=== PATIENT | male | born 1950 | race Caucasian/White ===

== ENCOUNTER 2017-05-26 15:08 | Emergency (ER) | payer MEDICARE, OTHER, SELFPAY ==
--- NOTE | 2017-05-26 15:29 | XR_ITS ---
XR elbow LT min 3V HISTORY: Pain following injury ITS.REASON: Injury ORDERING PHYSICIAN: Diana Vasquez PATIENT AGE: 67 years COMPARISON: None FINDINGS: No fracture or dislocation. No displaced fat pad. There is soft tissue swelling along the dorsal aspect of the proximal ulna. No radio opaque foreign body. IMPRESSION: Soft tissue swelling along the dorsal and proximal aspect of the ulna otherwise negative left elbow
[2017-05-26 15:30] VITALS: BP 150/83; PULSE 103; RESP 20; TEMP 37.6; O2SAT 98; BMI 24.4
--- NOTE | 2017-05-26 15:45 | PC.NURSE ---
Ambulatory to XRAY with information technology assistant
--- NOTE | 2017-05-26 15:51 | PC.NURSE ---
Pt ambulatory back to room from XRAY with weatherization technician.
--- NOTE | 2017-05-26 15:54 | HMH.EDUTC ---
[facility] [place] Clinical Impression: Olecranon bursitis of left elbow Disposition: Home, Self-Care Condition on Discharge: Good Instructions: DI for Elbow Bursitis Additional Instructions: Read attached education Ibuprofen as needed if you are allowed to take it. 600-800mg every 6-8 hours as needed for pain Luis wrap to left elbow. not too tight but not too loose. Monitor for any sign of infection as discussed. Follow up immediately if occurs. Fill and start keflex IF we report test results indicate need for it. If you have not heard from me by 8pm, call [phone] for results. Follow up with Dr. Lynch. See Follow up instructions Prescriptions: cephALEXin [Keflex 500mg Cap] 500 mg PO QID #40 cap Referrals: Jony Lynch MD [Staff Physician] - (Call office tomorrow. Report seen in [facility] and [facility]IOLOG[facility]ALLURGIST discussed you with Dr. Lynch. He wanted you to call for follow up appt, likely next week. Return to [facility]/ER in the meantime for ANY new or worsening symptoms) Time of Disposition: 17:38 Medical Decision Making - Earl Inquiry Pt receiving controlled substance: No Vital Signs: 05/26/17 15:30 Temperature 99.6 F Temperature Source Temporal Artery Scan Pulse Rate [Brachial] 103 H Respiratory Rate 20 Blood Pressure [Right Arm] 150/83 Blood Pressure Mean [Right Arm] 105 02 Sat by Pulse Oximetry 98 Orders (Tests/Meds): ORDERS Category Date Time Status Body Fluid: Cell Count w/ Diff Stat Lab 05/26/17 17:25 Ordered Body Fluid Culture, Sterile Stat Micro 05/26/17 17:25 Ordered Gram Stain Stat Micro 05/26/17 17:25 Ordered - Physician Consults Physician Consulted: leila Knox Time: 16:17 Reason -: Pt condition Comment/Response: Spoke to Mandie. Currently with a patient. Will have him call me once available. Dr. Cruz Returned call. If suspect infection, suggest sending fluid for gram stain, C&S, cell count. Apply luis wrap. keflex if results suspicous for infection. pt to call him tomorrow for follow up and he will see him next week. [facility] [place] - General Stated complaint: [id number] L elbow Time Seen by Provider: 05/26/17 15:36 Mode of Arrival: Ambulatory Source of Information: Patient Limitations: No Limitations Description of Symptoms (Recalled from Triage Doc. by RN): INJURIED HIS LEFT ELBOW A FEW YEARS AGO. YESTERDAY HIT IT ON THE TABLE AND NOW IT IS VERY PAINFUL. SWELLING IS NOTED. HEENT Symptoms (Recalled from RN notes): No Resp Symptoms (Recalled from RN notes): No Skin Symptoms (Recalled from RN notes): No MS Symptoms (Recalled from RN notes): Yes Functional Status (Recalled from RN notes): NA - History of Present Illness Provider Complaint: c/o left elbow pain and swelling since hitting it on a coffee table yesterday. Hx of injury to left elbow 2-4 years ago. No problems since. However since hitting it yesterday, increasingly sore, swollen and now red and hot. Low grade fever. No aches or chills. PMHx of chronic pain and nerve problems . Pain worse with ROM or if touched. - Related Data Home Medications Medication Instructions Recorded Confirmed Gabapentin [Gabapentin 800mg Tab] 800 mg PO Q6 05/26/17 05/26/17 Hydrocodone/Acetaminophen 7.5 mg PO Q6 05/26/17 05/26/17 [Hydrocodone-Acetamin 7.5-325] Previous Rx's Medication Instructions Recorded cephALEXin [Keflex 500mg Cap] 500 mg PO QID #40 cap 05/26/17 Allergies Allergy/AdvReac Type Severity Reaction Status Date / Time No Known Allergies Allergy Verified 05/26/17 15:33 - Worker's Comp Is this a Worker's Comp case?: No [facility] History I have reviewed the patient's past medical history: Yes Medical History: Denies:: Diabetes Mellitus Type 1, Diabetes Mellitus Type 2, Hypertension Other Surgeries: Yes: Other (back, neck, hand and knee surgeries) - Social History Smoking Status: Current every day smoker Alcohol Intake: never - Psychiatric History Expresses thoughts of harming self/others: N
[2017-05-26 17:59] VITALS: BP 150/83; PULSE 103; RESP 20; TEMP 37.6; O2SAT 98
[2017-08-05 15:43] LABS: Lymphocytes,Fluid 12%; Polys,Fluid 26%
[2017-08-05 15:44] LABS: Eosinophils,Fluid 0%
== END 2017-05-26 18:00 | disposition home or self-care (01) ==
PROVIDERS: Emergency Provider Nurse Practitioner Family; PCP Family Medicine
DX: M70.22 Olecranon bursitis, left elbow (principal)
CPT/HCPCS: G0463; 73080; 87070; 87077; 87186; 87205; 89051; 99201

== ENCOUNTER → 2017-11-22 14:46 | Outpatient (POV) | payer MEDICARE, OTHER, SELFPAY ==
[2017-11-22 15:03] VITALS: BP 186/98; PULSE 95; RESP 20; O2SAT 97; BMI 25.0
[2017-11-22 15:05] VITALS: BP 186/98; PULSE 95; RESP 20; O2SAT 97
[2017-11-22 18:23] LABS: Amphetamine/Metha Screen,Urine Negative ng/mL (<1000); Barbiturates Screen,Urine Negative ng/mL (<200); Benzodiazepines Screen,Urine Negative ng/mL (<200); Cannabinoid Screen,Urine Negative ng/mL (<50); Cocaine Screen,Urine Negative ng/mL (<300); Methadone Screen,Urine Negative ng/mL (<300); Opiate Screen,Urine Negative ng/mL (<300); Phencyclidine Screen,Urine Negative ng/mL (<25)
--- NOTE | 2017-11-23 09:01 | HMH.PMCON ---
Assessment and Plan (1) Postlaminectomy syndrome Current visit: Yes Status: Chronic Category: Medical Code(s): M96.1 - Postlaminectomy syndrome, not elsewhere classified (2) Degenerative disc disease Current visit: Yes Status: Chronic Qualifiers: Spinal region: unspecified cervical region Qualified Code(s): M50.30 - Other cervical disc degeneration, unspecified cervical region Category: Medical - Assessment and plan all Dx Assessment and Plan for all problems:: We will send the patient for urine drug screen today if it is appropriate we can take over his gabapentin. Patient and I had a long discussion about compliance. Patient also interested in cervical epidural however I need to review his MRI reports prior to this patient will sign a release so we can request these reports. This note was dictated using voice recognition software and may contain errors or omissions HPI - Data of Consult Consult date: 11/22/17 Requesting Physician: Farida Devlin APRN Primary Care Provider: Kelly Mills - Consult Narrative Reason for consult: Back pain History of present illness: Mr. Cardenas is a 67 year old male who presents today for consultation in regards to his pain. Patient had been seen in the past and was receiving narcotic medication however he failed a urine drug screen at that time. Patient states that he does not need that at this time he is interested in injections in remaining on his gabapentin. Patient's currently on gabapentin 800 mg 1 p.o. 4 times daily. Patient rates his pain an 8 out of 10 today. Patient states that he has had epidural injections in the past however he does not remember if they were beneficial. Patient states that he has pain in his neck radiating into his arms and also his back radiating into his feet. Patient is having surgery in the past. Patient and I have discussed in neurostimulator however he is uninterested in this at this time. Patient does have an MRI however it is at [facility] we will have to procure this. CC: Farida Devlin APRN [facility] History I have reviewed the patient's past medical history: Yes Medical History: Reports:: Hypertension Denies:: Cancer, Diabetes Mellitus Type 1, Diabetes Mellitus Type 2, MRSA Other Medical History: Reports: Fibromyalgia Other Surgeries: Yes: Other Amputation: No Fractures: No - *Social History Smoking Status: Current some day smoker Tobacco Type: cigarettes # Packs/Day (cigarettes): 1 Alcohol Intake: never Occupational Status: other - Psychiatric History Expresses thoughts of harming self/others: None Suicide Plan Description: No Plan *Family Hx:: No significant family history Review of Systems - Review of Systems ROS General: no recent weight change, no fever, no sleep disturbances Respiratory: no cough, no shortness of air, no recurring pulmonary infections Cardiovascular/Peripheral Vascular: No chest pain, No palpitations, no edema, no shortness of breath. Gastrointestinal: no incontinence, normal bowel movements reported Genitourinary: no incontinence Musculoskeletal: Back pain, leg pain, neck pain, arm pain Psychiatric: normal mood/ affect Neurological: [denies weakness in extremities], [denies balance issues] Meds Home Medications Medication Instructions Recorded Confirmed Type Gabapentin [Gabapentin 800mg Tab] 800 mg PO Q6 05/26/17 05/26/17 History Hydrocodone/Acetaminophen 7.5 mg PO Q6 05/26/17 05/26/17 History [Hydrocodone-Acetamin 7.5-325] clonazepam 0.5 mg disintegrating 0.5 mg PO QHS 06/02/17 History tablet Allergies Allergy/AdvReac Type Severity Reaction Status Date / Time No Known Allergies Allergy Verified 06/16/17 13:01 Objective Vital signs: Pulse Resp BP Pulse Ox 95 H 20 186/98 97 11/22/17 15:05 11/22/17 15:05 11/22/17 15:05 11/22/17 15:05 Narrative: Physical Exam General: Alert and oriented x3, no acute d
--- NOTE | 2017-11-23 09:05 | P.CONS_ITS ---
Assessment and Plan (1) Postlaminectomy syndrome Current visit: Yes Status: Chronic Category: Medical Code(s): M96.1 - Postlaminectomy syndrome, not elsewhere classified (2) Degenerative disc disease Current visit: Yes Status: Chronic Qualifiers: Spinal region: unspecified cervical region Qualified Code(s): M50.30 - Other cervical disc degeneration, unspecified cervical region Category: Medical - Assessment and plan all Dx Assessment and Plan for all problems:: We will send the patient for urine drug screen today if it is appropriate we can take over his gabapentin. Patient and I had a long discussion about compliance. Patient also interested in cervical epidural however I need to review his MRI reports prior to this patient will sign a release so we can request these reports. This note was dictated using voice recognition software and may contain errors or omissions HPI - Data of Consult Consult date: 11/22/17 Requesting Physician: Farida Devlin APRN Primary Care Provider: Kelly Mills - Consult Narrative Reason for consult: Back pain History of present illness: Mr. Cardenas is a 67 year old male who presents today for consultation in regards to his pain. Patient had been seen in the past and was receiving narcotic medication however he failed a urine drug screen at that time. Patient states that he does not need that at this time he is interested in injections in remaining on his gabapentin. Patient's currently on gabapentin 800 mg 1 p.o. 4 times daily. Patient rates his pain an 8 out of 10 today. Patient states that he has had epidural injections in the past however he does not remember if they were beneficial. Patient states that he has pain in his neck radiating into his arms and also his back radiating into his feet. Patient is having surgery in the past. Patient and I have discussed in neurostimulator however he is un interested in this at this time. Patient does have an MRI however it is at [facility] we will have to procure this. CC: Farida Devlin APRN [facility] History I have reviewed the patient's past medical history: Yes Medical History: Reports:: Hypertension Denies:: Cancer, Diabetes Mellitus Type 1, Diabetes Mellitus Type 2, MRSA Other Medical History: Reports: Fibromyalgia Other Surgeries: Yes: Other Amputation: No Fractures: No - *Social History Smoking Status: Current some day smoker Tobacco Type: cigarettes # Packs/Day (cigarettes): 1 Alcohol Intake: never Occupational Status: other - Psychiatric History Expresses thoughts of harming self/others: None Suicide Plan Description: No Plan *Family Hx:: No significant family history Review of Systems - Review of Systems ROS General: no recent weight change, no fever, no sleep disturbances Respiratory: no cough, no shortness of air, no recurring pulmonary infections Cardiovascular/Peripheral Vascular: No chest pain, No palpitations, no edema, no shortness of breath. Gastrointestinal: no incontinence, normal bowel movements reported Genitourinary: no incontinence Musculoskeletal: Back pain, leg pain, neck pain, arm pain Psychiatric: normal mood/ affect Neurological: [denies weakness in extremities], [denies balance issues] Meds Home Medications Medication Instructions Recorded Confirmed Type Gabapentin [Gabapentin 800mg Tab] 800 mg PO Q6 05/26/17 05/26/17 History Hydrocodone/Acetaminophen 7.5 mg PO Q6 05/26/17 05/26/17 History
[2017-11-26 19:10] LABS: Gabapentin,Urine >800.0 ug/mL (.)
[2017-12-01 16:45] LABS: Opiates Negative (Cutoff=100)
== END ==
PROVIDERS: PCP Nurse Practitioner Family; Visit Provider Clinical Nurse Specialist Family Health
DX: M96.1 Postlaminectomy syndrome, not elsewhere classified (principal); M50.30 Other cervical disc degeneration, unspecified cervical region; Z79.899 Other long term (current) drug therapy
CPT/HCPCS: 80305; 80307; 80361; 80365; 99202; G0480

== ENCOUNTER → 2017-12-08 08:41 | Outpatient (CLI) | payer MEDICARE, OTHER, SELFPAY ==
--- NOTE | 2017-12-08 | CA_ITS ---
PROCEDURE: 2-D M-mode and color Doppler study INDICATIONS FOR THE TEST: Chest pain+ COPD Heart Murmur Tobacco Smoking+ Palpitations Fatigue Syncope Edema Hypertension+Diabetes Mellitus Rheumatic Fever SOB EATON Obesity Hyperlipidemia+ Family History HD Additional History TDE PATIENT INFORMATION HEIGHT: 72 WEIGHT:185 GENDER: Male B/P: 2-D/M-MODE INTERPRETATION: 2-D MEASUREMENTS OBSERVED VALUES IN CMS Right Ventricular Dimension (RVDd) 2.0 Interventricular Septum (Thickness)(IVsd) 1.3 Left Ventricular Internal Dimensions(LVIDd) 3.6 Left Ventricular Posterior Wall (Thickness)(LVPWd) 1.1 Aortic Root 2.8 Aortic Cusp Separation 2.0 Left Atrial Dimensions (LAD) 3.9 2D 1. Left atrium is mildly enlarged, left ventricle is normal size, mild concentric left ventricular hypertrophy, visually estimated ejection fraction of 55% with no regional wall motion abnormality. 2. The right atrium and right ventricle are normal size and contractility. 3. The aortic valve is minimally thickened and fibrosed. 4. The mitral and tricuspid valve is normal. 5. The pulmonic valve is poorly visualized. 6. No significant pericardial effusion noted. DOPPLER INTERROGATION: Doppler interrogation of the aortic, mitral and tricuspid valvular presence of mild mitral and tricuspid regurgitation, tricuspid regurgitation jet velocity is insufficient for calculation of the right ventricular systolic pressure, grade 1 diastolic dysfunction seen without tissue Doppler evidence of raised left atrial pressure. CONCLUSION: 1. Mildly left atrium, normal left ventricular size, mild concentric left ventricular hypertrophy, visually estimated ejection fraction 55% with no regional wall motion abnormality, grade 1 diastolic dysfunction seen without tissue Doppler evidence of raised left atrial pressure. 2. Mild mitral and tricuspid regurgitation 3. No significant pericardial effusion noted.
== END ==
PROVIDERS: PCP Nurse Practitioner Family; Visit Provider Nurse Practitioner Family
DX: I34.1 Nonrheumatic mitral (valve) prolapse (principal)
CPT/HCPCS: 93306

== ENCOUNTER → 2018-08-05 14:15 | Outpatient (CLI) | payer MEDICARE, OTHER, SELFPAY ==
--- NOTE | 2018-08-05 14:19 | MR_ITS ---
MR cervical spine wo con, MR 3-d myelogram/MRCP HISTORY: Neck pain Xyears. Bilateral arm pain, numbness, and tingling. ITS.REASON: CERVICAL DISC DISORDER WITH RADICULOPATHY ORDERING PHYSICIAN: Kelly Mills PATIENT AGE: 68 years Comparison: None TECHNIQUE: Standard multiplanar multiecho sequences are performed without contrast. 3-D MIP and myelographic images are also rendered and reviewed FINDINGS: There is moderate degree of motion artifact which does somewhat obscure fine detail. The craniocervical junction has an unremarkable appearance. C2-C3: Mild right-sided foraminal narrowing from facet hypertrophy C3-C4: Small central disc protrusion slightly eccentric to the left causing narrowing of the canal with minimal contour deformity along the anterior aspect of the cord. C4-C5: Degenerative disc disease with retrolisthesis of C4 on C5 of 4 mm and bulging disc with canal narrowing of the left millimeters with minimal indentation upon the cord anteriorly. There is uncovertebral and facet hypertrophy with bilateral lateral recess and foraminal narrowing. C5-C6: Prior anterior cervical disc fusion with artifact. C6-C7: Prior anterior cervical disc fusion with bone plate anteriorly at C5-6 and 7. C7-T1: Minimal bulging disc. IMPRESSION: 1. Limited study secondary to motion artifact and metallic artifact from prior anterior cervical disc fusion at C5-C6 and C6-C7. 2. C3-C4: Small central disc protrusion slightly eccentric to the left causing narrowing of the canal with minimal contour deformity along the anterior aspect of the cord. 3. C4-C5: Degenerative disc disease with retrolisthesis of C4 on C5 of 4 mm and bulging disc with canal narrowing of the left millimeters with minimal indentation upon the cord anteriorly. There is uncovertebral and facet hypertrophy with bilateral lateral recess and foraminal narrowing
--- NOTE | 2018-08-05 14:19 | MR_ITS ---
MR lumbar spine wo con HISTORY: PT states low back pain X years. Prior back surgery years ago. Bilateral leg and feet pain, numbness and tingling. Bilateral feet burning. ITS.REASON: THORACOLUMBAR AND LUMBOSACRAL INTERVERTEBRAL DISC DISORDER ORDERING PHYSICIAN: Kelly Mills PATIENT AGE: 68 years Comparison: None TECHNIQUE: Standard multiplanar multiecho sequences are performed without contrast. 3-D MIP and myelographic images are also rendered and reviewed FINDINGS: Spinal cord ends at the T12-L1 level. T12-L1 and L1-L2 have an unremarkable appearance. L2-L3: Minimal bulging disc along with mild facet and ligamentum flavum hypertrophy L3-L4: Mild bulging disc along with moderate facet and ligamentum flavum hypertrophy with moderate bilateral lateral recess and mild bilateral foraminal narrowing. L4-L5: Bulging disc along with a small broad-based central disc protrusion along with moderate to severe bilateral facet and ligamentum flavum hypertrophy with resultant severe bilateral lateral recess and foraminal narrowing. There is transverse narrowing of the canal at this level of 9 mm. L5-S1: Prior posterior fusion with laminectomy and posterior interpedicular screws. No disc herniations evident. IMPRESSION: 1. Bulging disc at L4-5 with small broad-based central disc protrusion with moderate to severe facet ligamentum flavum hypertrophy with severe bilateral lateral recess and severe bilateral foraminal narrowing along with transverse narrowing of the canal 2. Postsurgical changes L5-S1. 3. Mild bulging disc with facet and ligamentum hypertrophy at L3-L4 with bilateral lateral recess and foraminal narrowing IMPRESSION:
== END ==
PROVIDERS: PCP Nurse Practitioner Family; Visit Provider Nurse Practitioner Family
DX: M50.10 Cervical disc disorder with radiculopathy, unspecified cervical region (principal); M51.16 Intervertebral disc disorders with radiculopathy, lumbar region
CPT/HCPCS: 72141; 72148; 76376

== ENCOUNTER → 2019-06-26 17:46 | Outpatient (CLI) | payer MEDICARE, OTHER, SELFPAY ==
[2019-06-26 18:47] LABS: Basophils # 0.2 K/mm3 (0-0.2); Basophils % 1.7 % (0.1-2.0); Eosinophils # 0.2 K/mm3 (0.0-0.4); Eosinophils % 1.6 % (0.1-12.0); Hematocrit 52.7 % (42.0-52.0); Hemoglobin 16.7 g/dL (14.1-18.0); Lymphocytes # 3.6 K/mm3 (0.7-4.5); Lymphocytes % 26.5 % (10-50); Mean Corpuscular HGB Conc 31.8 g/dL (31.8-35.4); Mean Corpuscular Hemoglobin 30.1 pg (27.0-31.2); Mean Corpuscular Volume 94.8 fl (80-94); Mean Platelet Volume 10.6 fl (7.4-10.4); Monocytes # 0.9 K/mm3 (0.1-1.0); Monocytes % 6.4 % (1.7-9.3); Neutrophils # 8.6 K/mm3 (1.8-7.8); Neutrophils % 63.6 % (37.0-80.0); Platelet Count 312 K/mm3 (142-424); Red Blood Count 5.56 M/mm3 (4.60-6.20); White Blood Count 13.5 K/mm3 (4.8-10.8)
[2019-06-26 19:41] LABS: Chloride 100 mmol/L (98-107); Potassium 4.7 mmoL/L (3.5-5.1); Sodium 138 mmol/L (136-145)
[2019-06-26 19:43] LABS: Blood Urea Nitrogen 11 mg/dl (9-20); Estimated Glomerular Filt Rate 96 ml/min (>60); GFR (African American) 116 ML/MIN (>60)
[2019-06-26 19:44] LABS: Albumin Level 4.2 g/dl (3.5-5.0); Albumin/Globulin Ratio 1.1 (1.1-1.8); Alkaline Phosphatase 165 U/L (38-126); Anion Gap 17.7 mEq/L (5-15); Bilirubin,Total 0.4 mg/dl (0.2-1.3); Calcium 9.6 mg/dl (8.4-10.2); Carbon Dioxide 25 mmol/L (22.0-30.0); Chol/HDL Ratio 4.5 (1-3.5); Cholesterol 189 mg/dl (140-200); Globulin 3.7 g/dL (1.3-3.2); Glucose 111 mg/dl (74-100); HDL Cholesterol 42 mg/dl (40-60); Total Protein,Serum 7.9 g/dl (6.3-8.2); Triglycerides 135 mg/dl (30-150); VLDL Cholesterol 27 mg/dL (0-40)
[2019-06-26 19:46] LABS: Alanine Aminotransferase 25 U/L (12-78); Aspartate Amino Transferase 36 U/L (17-59)
[2019-06-26 20:01] LABS: T4 (Thyroxine) 9.4 ug/dl (5.53-11.0)
[2019-06-28 10:50] LABS: Vitamin B12 728 pg/mL (232-1245); Vitamin D 25 Hydroxy 24.7 ng/mL (30.0-100.0)
== END ==
PROVIDERS: Visit Provider Physician Assistant
DX: G62.9 Polyneuropathy, unspecified (principal); R53.83 Other fatigue; E78.5 Hyperlipidemia, unspecified
CPT/HCPCS: 80053; 80061; 82607; 82652; 84436; 84443; 85025

== ENCOUNTER → 2019-07-03 12:41 | Outpatient (CLI) | payer MEDICARE, OTHER, SELFPAY ==
[2019-07-03 13:35] VITALS: PULSE 100; PULSE 102
== END ==
PROVIDERS: PCP Physician Assistant; Visit Provider Physician Assistant
DX: R06.00 Dyspnea, unspecified (principal)
CPT/HCPCS: 94060; 94618; 94640; 94726; 94729

== ENCOUNTER → 2019-07-10 13:01 | Outpatient (POV) | payer MEDICARE, OTHER, SELFPAY ==
[2019-07-10 13:26] VITALS: BP 180/85; PULSE 106; RESP 20; TEMP 36.6; O2SAT 95; BMI 26.5
--- NOTE | 2019-07-10 14:09 | HMH.PMCON ---
Assessment and Plan (1) Cervical stenosis of spinal canal Current visit: No Status: Chronic Category: Medical Code(s): M48.02 - Spinal stenosis, cervical region (2) Degenerative disc disease Current visit: No Status: Chronic Qualifiers: Spinal region: unspecified cervical region Qualified Code(s): M50.30 - Other cervical disc degeneration, unspecified cervical region Category: Medical (3) Lumbar canal stenosis Current visit: No Status: Chronic Qualifiers: Neurogenic claudication status: without neurogenic claudication Qualified Code(s): M48.061 - Spinal stenosis, lumbar region without neurogenic claudication Category: Medical Code(s): M48.061 - Spinal stenosis, lumbar region without neurogenic claudication (4) Postlaminectomy syndrome Current visit: No Status: Chronic Category: Medical Code(s): M96.1 - Postlaminectomy syndrome, not elsewhere classified - Assessment and plan all Dx Assessment and Plan for all problems:: We will set up the patient for an L4-L5 lumbar epidural steroid injection. Given his symptomology I do believe this would be beneficial. He is not a candidate for controlled substances due to the abuse in regards to buying substances off the street and mixing prescribed substances. Patient may be a candidate for a neurostimulator in the future however he is uninterested in discussing that. Dr. Meadows has reviewed this note and agrees with this plan of care. This note was dictated using voice recognition software and may contain errors or omissions HPI - Data of Consult Consult date: 07/10/19 Requesting Physician: Farida Devlin APRN Primary Care Provider: BRENNEN Cool - Consult Narrative Reason for consult: Low back pain and leg pain History of present illness: Mr. Cardenas is a 69 year old male who presents today to discuss his low back and leg pain. Patient had surgery back sometime ago . Patient states that he believes it was Dr. Fortune who did his surgeries. Since then he has had low back pain. He states that he has a lot of numbness in his feet. Patient has a lot of burning. Patient was on gabapentin however he took his friend's Lyrica and told his primary care that this was more beneficial. He was then prescribed Lyrica which he now takes with the gabapentin. Patient states that he has bought Suboxone off the street and that this is been very beneficial in regards to his pain. Patient does have a history of alcohol abuse along with family history of alcohol abuse. Patient is not a candidate for any kind of narcotic therapies at this time. Patient is interested in injective therapy we discussed an epidural he would like to move forward with this. We also discussed potentially neurostimulator which would give him much benefit for his feet however he states he is uninterested in this because his nephew had it and it did not do nothing for him . Patient rates his pain a 7 out of 10. Patient denies any physical therapy. CC: Farida Devlin APRN [facility] History I have reviewed the patient's past medical history: Yes Medical History: Reports:: Hyperlipidemia, Hypertension Denies:: Cancer, Diabetes Mellitus Type 1, Diabetes Mellitus Type 2, MRSA *Have you ever received a pneumonia vaccine?: Yes *Have you received a flu vaccine this season?: Yes Other Medical History: Reports: Arthritis, Fibromyalgia Other Surgeries: Yes: Other Amputation: No Fractures: No - *Social History Smoking Status: Current every day smoker Tobacco Type: cigarettes # Packs/Day (cigarettes): 1 Alcohol Intake: never Substance Use Type: denies use *Occupational Status:: other Housing: house Household Members: other *Travel in the last 8 weeks: None Family Hx:: Unable to obtain Review of Systems - Review of Systems ROS General: no recent weight change, no fever, no sleep disturbances Respiratory: no cough, no shortness of air, no recurring pulmonary infect
== END ==
PROVIDERS: PCP Physician Assistant; Visit Provider Clinical Nurse Specialist Family Health
DX: M48.02 Spinal stenosis, cervical region (principal); M50.30 Other cervical disc degeneration, unspecified cervical region; M48.061 Spinal stenosis, lumbar region without neurogenic claudication; M96.1 Postlaminectomy syndrome, not elsewhere classified
CPT/HCPCS: 99202

== ENCOUNTER → 2019-12-29 10:55 | Outpatient (CLI) | payer MEDICARE, OTHER, SELFPAY ==
--- NOTE | 2019-12-29 10:55 | CT_ITS ---
PROCEDURE: CT LUNG SCREENING CLINICAL INDICATION: Lung cancer screening Fifty pack-year smoking history asymptomatic for lung cancer COMPARISON: No exams were available for comparison TECHNIQUE: The exam was performed on a GE Light Speed [address] scanner using 2.90 mGy CTDI. A low dose helical CT CHEST was performed on a multi-detector scanner. All CT scans at the facility use one or more dose reduction, viz: automated exposure control, ma/kV adjustment per patient size (including targeted exams where dose is matched to indication, i.e. head), or iterative reconstruction technique. The LDCT was performed in a facility that meets the criteria for the screening program. Data regarding this exam was submitted to ACR which is an approved registry. The order for this exam indicates that it came as a result of a lung cancer screening counseling shard decision-making visit that included all the elements required of such a visit including smoking cessation. The radiologist interpreting this exam meets the [facility] criteria for the LDCT lung cancer screening program. The exam is reported using the Lung-RADS classification scale and reported to the ACR registry. NOTE: This study was performed for the specific purposes of lung cancer screening and is not an alternative to diagnostic chest CT. RADIATION DOSE: CTDI vol(CT dose Index-volume) = 2.90mG DLP (Dose Length Product) = 110.72 mGcm FINDINGS: COPD changes with some scattered areas of scarring/atelectatic change. There is a suspicious spiculated nodule in the right upper lobe anteriorly measuring 1.7 cm with at least 1 spiculations extending to the pleural surface anteriorly highly suspicious for neoplasm. There is a small satellite nodule adjacent to this lesion anteriorly measuring 5 mm. No obvious mediastinal adenopathy. OTHER FINDINGS: Coronary artery calcifications are noted. IMPRESSION: Lung-RADS Category 4X Very Suspicious Follow-up: Suggest PET-CT for further evaluation. Dictated by: Aime Major MD 01/07/2020 08:50 Aime Major MD in [place] 01/07/2020 08:51
== END ==
PROVIDERS: PCP Emergency Medicine; Visit Provider Internal Medicine Pulmonary Disease
DX: Z87.891 Personal history of nicotine dependence (principal); Z12.2 Encounter for screening for malignant neoplasm of respiratory organs

== ENCOUNTER 2020-02-16 12:02 | Emergency (ER) | payer MEDICARE, OTHER, SELFPAY ==
[2020-02-16 12:03] VITALS: BP 155/83; PULSE 93; RESP 16; TEMP 36.9; O2SAT 95; BMI 25.8
[2020-02-16 12:04] VITALS: BMI 25.8
--- NOTE | 2020-02-16 12:06 | HMH.EDGENADL ---
ED Disposition Clinical Impression: Intracranial aneurysm, Diplopia Cranial nerve III palsy, partial Qualifiers: Laterality: unspecified laterality Qualified Code(s): H49.00 - Third [oculomotor] nerve palsy, unspecified eye Disposition: [facility]fer [facility] Condition on Discharge: Good Additional Instructions: Patient is to be brought immediately to the [facility] emergency department to be evaluated by neurosurgery. If any issues getting to [facility] emergency department, please immediately report back to our emergency department. Referrals: Lebron Freeman MD [Primary Care Provider] - - Critical Care Critical Care Time: No Attestation: On , the high probability of a clinically significant, sudden or life threatening deterioration of the following system(s) required my full and direct attention, intervention and personal management. The time I documented below is in addition to time spent performing reported procedures but includes the following listed in this critical care notation. Medical Decision Making - Medical Records Medical records reviewed: Yes: I reviewed the patient's medical records. - Earl Inquiry Pt receiving controlled substance: No Vital Signs: 02/16/20 12:03 02/16/20 12:25 02/16/20 15:00 Temperature 98.5 F Temperature Source Oral Pulse Rate [Right] 93 H 77 98 H Respiratory Rate 16 18 20 Blood Pressure [Right Arm] 155/83 H 155/83 H 117/75 Blood Pressure Mean [Right Arm] 107 107 89 Blood Pressure Source [Right Arm] Automatic Cuff Automatic Cuff Automatic Cuff Blood Pressure Position [Right Arm] Sitting Sitting Sitting 02 Sat by Pulse Oximetry 95 94 L 94 L Oxygen Delivery Method Room Air 02/16/20 15:44 Temperature Temperature Source Pulse Rate [Right] 77 Respiratory Rate 20 Blood Pressure [Right Arm] 143/79 H Blood Pressure Mean [Right Arm] 100 Blood Pressure Source [Right Arm] Automatic Cuff Blood Pressure Position [Right Arm] Sitting 02 Sat by Pulse Oximetry 98 Oxygen Delivery Method - Lab Data Lab Results 02/16/20 12:05: WBC 9.8, RBC 5.27, Hgb 16.7, Hct 50.3, MCV 95.4 H, MCH 31.7 H, MCHC 33.3, RDW 12.6, Plt Count 226, MPV 9.8, Neut % (Auto) 42.5, Lymph % (Auto) 45.8, [place] % (Auto) 7.2, Eos % (Auto) 3.5, Baso % (Auto) 1.0, Neut # (Auto) 4.2, Lymph # (Auto) 4.5, [place] # (Auto) 0.7, Eos # (Auto) 0.3, Baso # (Auto) 0.1 02/16/20 12:05: PT 11.9 H, INR 1.08, APTT 26.7 02/16/20 12:05: Sodium 139, Potassium 4.1, Chloride 99, Carbon Dioxide 33 H, Anion Gap 11.1, BUN 13, Creatinine 0.80, Estimated Creat Clear 89, Estimated GFR 96, Est GFR ( Amer) 116, Glucose 148 H, Calcium 9.7, Troponin I < 0.01 Result diagrams: 02/16/20 12:05 02/16/20 12:05 Orders (Tests/Meds): ED MEDICATIONS Generic Name Dose Route Start Last Admin Trade Name Freq PRN Reason Stop Dose Admin Sodium Chloride 10 ml 02/16/20 13:12 02/16/20 13:14 Sodium Chloride 0.9% 10ml Syr (Rad Only) IV 03/17/20 13:11 10 ml NEEDED PRN Administration Maintain IV Site Discontinued Medications Generic Name Dose Route Start Last Admin Trade Name Freq PRN Reason Stop Dose Admin Gadoteridol 1 ml 02/16/20 15:15 Gadoteridol Inj 17ml Syringe IV 02/16/20 15:16 ONCE ONE Gadoteridol 17 ml 02/16/20 15:15 02/16/20 15:17 Gadoteridol Inj 17ml Syringe IV 02/16/20 15:16 17 ml ONCE ONE Administration Iopamidol 100 ml 02/16/20 13:12 02/16/20 13:14 Iopamidol-370 (76%);100ml Bottle IV 02/16/20 13:13 100 ml ONCE ONE Administration Sodium Chloride 50 ml 02/16/20 13:12 02/16/20 13:13 0.9 % Sodium Chloride 50 Ml Vial IV 02/16/20 13:13 50 ml ONCE ONE Administration Sodium Chloride 10 ml 02/16/20 15:15 Sodium Chloride 0.9% 10ml Syr (Rad Only) IV 02/16/20 15:16 ONCE ONE Sodium Chloride 10 ml 02/16/20 15:15 02/16/20 15:17 Sodium Chloride 0.9% 10ml Syr (Rad Only) IV 02/16/20 15:16 10 ml ONCE ONE Administration Medical D
--- NOTE | 2020-02-16 12:07 | CT_ITS ---
Procedure: CT ANGIO NECK CLINICAL HISTORY: diplopia Diplopia, possible aneurysm COMPARISON: CT CT LUNG SCREENING from 12/29/2019 TECHNIQUE: IV Contrast: 100ml Isovue 370 Axial images obtained with sagittal and coronal reformats. All CT scans at the facility use one or more dose reduction, viz: automated exposure control, ma/kV adjustment per patient size (including targeted exams where dose is matched to indication, i.e. head), or iterative reconstruction technique. FINDINGS: CTA neck: The aortic arch has an unremarkable appearance. Great vessels appear unremarkable with no significant stenosis or dissection. No significant stenosis of the common or internal carotids. There is some minimal plaque at the proximal right ICA without stenosis. Vertebrals are unremarkable. No stenosis dissection or aneurysm CTA brain: There is some mild atheromatous changes within the cavernous portion of the carotids on both sides without significant stenosis. There does appear to be a small aneurysm projecting medially off of the clinoid portion of the right ICA best detected on series 2, image 455. This measures approximately 2 mm. No other significant anomalies evident. There is no evidence of dissection aneurysm or major branch occlusion. The vertebral basilar system has an unremarkable appearance. Left vertebral is dominant. CT head post enhanced. No midline shift or mass effect. No obvious enhancing lesions. There is some nodular enhancement within the central canal inferior to the 4th ventricle on the left which is possibly just due to prominent veins. Consider nonemergent follow-up MRI of the brain without and with gadolinium enhancement in this patient with a suspicious right upper lobe mass. There is COPD noted. There is a spiculated 15 x 17 mm nodule within the right upper lobe. Spicules extend to the pleural surface anteriorly and there is a small satellite nodule anteriorly measuring 6 mm. This is consistent with bronchogenic carcinoma. There is some minimal ground-glass attenuation in the right apex which is not significantly changed. Scarring is present in the lung apices IMPRESSION: 1. 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 No large aneurysms evident. No aneurysm at the optic chiasm region 3. Spiculated right upper lobe mass consistent with bronchogenic carcinoma. Dictated by: Aime Major MD 02/16/2020 13:58 Aime Major MD in [place] 02/16/2020 13:58
--- NOTE | 2020-02-16 12:07 | CT_ITS ---
PROCEDURE: CT HEAD/BRAIN WO CON CLINICAL INDICATION: diplopia COMPARISON: No exams were available for comparison TECHNIQUE: Axial images obtained. All CT scans at the facility use one or more dose reduction, viz: automated exposure control, ma/kV adjustment per patient size (including targeted exams where dose is matched to indication, i.e. head), or iterative reconstruction technique. FINDINGS: No midline shift, mass effect, intracranial hemorrhage, hydrocephalus, or extra-axial fluid collection is evident. There is generalized atrophy with hypoattenuation of the periventricular white matter consistent with microangiopathic changes. The calvarium has an unremarkable appearance. There is partial opacification of the mastoid sinuses on both sides right greater than left . Mild mucosal thickening of the ethmoid sinuses on the right IMPRESSION: 1. No acute intracranial findings. 2. Bilateral mastoid and ethmoid sinus disease Dictated by: Aime Major MD 02/16/2020 13:39 Aime Major MD in [place] 02/16/2020 13:39
--- NOTE | 2020-02-16 12:18 | MR_ITS ---
PROCEDURE: MR HEAD/BRAIN WO/W CON CLINICAL INDICATION: visual disturbances Visual disturbance COMPARISON: CT CT ANGIO HEAD from 02/16/[address] HEAD/BRAIN WO CON from 02/16/[address] ANGIO NECK from 02/16/2020 TECHNIQUE: Routine multiplanar multi echo sequences are performed without gadolinium enhancement. FINDINGS: No midline shift, mass effect, intracranial hemorrhage, or hydrocephalus is evident. No evidence of acute infarction. The cerebellopontine angles, cerebellum, brainstem, and mid brain have an unremarkable appearance. There is an the eliptaform area of homogeneous enhancement within the left temporal region anteriorly measuring 2.1 cm which appears extradural in nature and is consistent with a meningioma. This is without mass effect. No other enhancing lesions are evident. There are few scattered T2 white matter hyperintensities which may be due to ischemic gliotic change from microvascular disease. Bilateral mastoid effusions are present. There is a mild amount of mucosal thickening of the right ethmoid sinus. The pituitary, optic chiasm, corpus callosum and craniocervical junction have an unremarkable appearance. There is degenerative disc disease at C3-C4 with bulging disc with canal stenosis and mild impingement upon the cord. IMPRESSION: No acute intracranial findings. Homogeneous enhancing lesion in the left temporal region anteriorly which appears extra-axial consistent with a meningioma. Canal stenosis at C3-C4 with bulging disc and impingement upon the cord Dictated by: Aime Major MD 02/16/2020 15:34 Aime Major MD in [place] 02/16/2020 15:34
[2020-02-16 12:25] VITALS: BP 155/83; PULSE 77; RESP 18; O2SAT 94
[2020-02-16 12:32] LABS: Chloride 99 mmol/L (98-107); Sodium 139 mmol/L (136-145)
[2020-02-16 12:33] LABS: Potassium 4.1 mmoL/L (3.5-5.1)
[2020-02-16 12:35] LABS: Blood Urea Nitrogen 13 mg/dl (9-20); Creatinine Clearance Estimated 89 mL/min (50-200); Estimated Glomerular Filt Rate 96 ml/min (>60); GFR (African American) 116 ML/MIN (>60)
[2020-02-16 12:36] LABS: Anion Gap 11.1 mEq/L (5-15); Basophils # 0.1 K/mm3 (0-0.2); Calcium 9.7 mg/dl (8.4-10.2); Carbon Dioxide 33 mmol/L (22.0-30.0); Eosinophils # 0.3 K/mm3 (0.0-0.4); Eosinophils % 3.5 % (0.1-12.0); Glucose 148 mg/dl (74-100); Hematocrit 50.3 % (42.0-52.0); Hemoglobin 16.7 g/dL (14.1-18.0); Lymphocytes # 4.5 K/mm3 (0.7-4.5); Lymphocytes % 45.8 % (10-50); Mean Corpuscular HGB Conc 33.3 g/dL (31.8-35.4); Mean Corpuscular Hemoglobin 31.7 pg (27.0-31.2); Mean Corpuscular Volume 95.4 fl (80-94); Mean Platelet Volume 9.8 fl (7.4-10.4); Monocytes # 0.7 K/mm3 (0.1-1.0); Monocytes % 7.2 % (1.7-9.3); Neutrophils # 4.2 K/mm3 (1.8-7.8); Neutrophils % 42.5 % (37.0-80.0); Platelet Count 226 K/mm3 (142-424); Red Blood Count 5.27 M/mm3 (4.60-6.20); Red Cell Distribution Width 12.6 % (11.5-17.5); White Blood Count 9.8 K/mm3 (4.8-10.8)
--- NOTE | 2020-02-16 12:37 | PC.NURSE ---
MD at bedside when pt arrived
--- NOTE | 2020-02-16 12:39 | PC.NURSE ---
Visual acuity completed on room 2
[2020-02-16 12:42] LABS: Activated Partial Thrombo Time 26.7 seconds (23.6-34.0); INR 1.08 (0.9-1.1); Prothrombin Time 11.9 seconds (9.4-11.8)
[2020-02-16 12:49] LABS: Troponin I < 0.01 ng/ml (0.00-0.034)
--- NOTE | 2020-02-16 12:50 | PC.NURSE ---
Pt left for MRI and CT
--- NOTE | 2020-02-16 12:56 | PC.NURSE ---
PT IS GONE FOR CT/MRI
[2020-02-16 15:00] VITALS: BP 117/75; PULSE 98; RESP 20; O2SAT 94
[2020-02-16 15:44] VITALS: BP 143/79; PULSE 77; RESP 20; O2SAT 98
--- NOTE | 2020-02-16 15:45 | PC.NURSE ---
placed call to [facility] for neuro surgery
--- NOTE | 2020-02-16 16:09 | PC.NURSE ---
Dr Poole spoke with Vascular, Neuro is supposed to call back.
--- NOTE | 2020-02-16 16:20 | PC.NURSE ---
spoke with pt about transfer method and going by ambulance. Pt advised he would rather go POV. He wanted to go home and get some things and then go to [facility]. MD agreeable to pt going POV.
[2020-02-16 17:01] VITALS: BP 143/79; PULSE 77; RESP 20; TEMP 36.9; O2SAT 98
== END 2020-02-16 17:03 | disposition designated cancer center or children's hospital (05) ==
PROVIDERS: Emergency Provider Emergency Medicine; PCP Emergency Medicine
DX: I67.1 Cerebral aneurysm, nonruptured (principal); H49.01 Third [oculomotor] nerve palsy, right eye; H53.2 Diplopia; C34.90 Malignant neoplasm of unspecified part of unspecified bronchus or lung; F17.210 Nicotine dependence, cigarettes, uncomplicated; I10 Essential (primary) hypertension; E78.5 Hyperlipidemia, unspecified; M79.7 Fibromyalgia; D68.9 Coagulation defect, unspecified
CPT/HCPCS: 70450; 70496; 70498; 70553; 80048; 84484; 85025; 85610; 85730; 99283; A9576; Q9967

== ENCOUNTER → 2020-09-03 17:24 | Outpatient (CLI) | payer MEDICARE, OTHER, SELFPAY ==
[2020-09-03 19:32] LABS: Barbiturates Screen,Urine Negative ng/ml (<200)
[2020-09-03 19:34] LABS: Amphetamine/Metha Screen,Urine Negative ng/ml (<1000); Cocaine Screen,Urine Negative ng/ml (<300)
[2020-09-03 19:35] LABS: Benzodiazepines Screen,Urine Negative ng/ml (<200); Cannabinoid Screen,Urine Negative ng/ml (<50)
[2020-09-03 19:36] LABS: Methadone Screen,Urine Negative ng/ml (<300)
[2020-09-03 19:37] LABS: Opiate Screen,Urine Positive ng/ml (<300); Phencyclidine Screen,Urine Negative ng/ml (<25)
== END ==
PROVIDERS: Visit Provider Emergency Medicine
DX: Z79.899 Other long term (current) drug therapy (principal)
CPT/HCPCS: 80305

== ENCOUNTER → 2020-11-19 18:53 | Outpatient (CLI) | payer MEDICARE, OTHER, SELFPAY ==
[2020-11-19 21:20] LABS: Amphetamine/Metha Screen,Urine Negative ng/ml (<1000)
[2020-11-19 21:21] LABS: Barbiturates Screen,Urine Negative ng/ml (<200); Benzodiazepines Screen,Urine Negative ng/ml (<200)
[2020-11-19 21:22] LABS: Cannabinoid Screen,Urine Negative ng/ml (<50)
[2020-11-19 21:23] LABS: Cocaine Screen,Urine Negative ng/ml (<300); Methadone Screen,Urine Negative ng/ml (<300)
[2020-11-19 21:24] LABS: Opiate Screen,Urine Positive ng/ml (<300)
[2020-11-19 21:25] LABS: Phencyclidine Screen,Urine Negative ng/ml (<25)
== END ==
PROVIDERS: Visit Provider Emergency Medicine
DX: Z79.899 Other long term (current) drug therapy (principal)
CPT/HCPCS: 80305

== ENCOUNTER → 2020-12-05 15:51 | Outpatient (CLI) | payer MEDICARE, OTHER, SELFPAY ==
--- NOTE | 2020-12-05 15:51 | MR_ITS ---
PROCEDURE: MR LUMBAR SPINE WO CON CLINICAL INDICATION: back pain MR MR HEAD/BRAIN WO/W CON from 02/16/2020 TECHNIQUE: Standard multiplanar multiecho sequences are performed without contrast. 3-D MIP and myelographic images are also rendered and reviewed FINDINGS: The report delayed waiting on outside films for comparison which are not made available as of this reading date. Spinal cord ends at the T12 level. T12-L1: Unremarkable. L1-L2: Mild facet and ligamentum hypertrophic change with mild bilateral lateral recess narrowing. L2-L3: Facet and ligamentum hypertrophic change with mild to moderate bilateral foraminal narrowing and mild bilateral foraminal narrowing. L3-L4: Concentric bulging disc with moderate to severe facet and ligamentum hypertrophic change with moderate bilateral lateral recess narrowing and mild bilateral foraminal narrowing.. There is borderline canal stenosis. L4-5: Concentric bulging disc with severe facet and ligamentum hypertrophic change with severe bilateral lateral recess narrowing right greater than left with canal stenosis. There is a small central disc protrusion with minimal inferior extrusion. There is severe bilateral foraminal narrowing with impingement upon the exiting L4 nerve roots. The facet hypertrophic changes causing narrowing of the canal posteriorly in the transverse dimension causing impingement upon the nerve roots at this region. The transverse with of the canal is approximately 8 mm. Small area of increased T2 signal involves the L4 vertebral body posteriorly and inferiorly and may be related to type 1 endplate changes. L5-S1: Artifact from inter pedicular screws at L5 and S1. Prior laminectomy.. There is moderate foraminal narrowing inferiorly from the facet hypertrophic change. IMPRESSION: Abnormal MRI of the lumbar spine with multilevel lumbar spondylosis with canal stenosis, facet and ligamentum hypertrophic change with lateral recess and foraminal narrowing most severe at L4-L5 with a small central disc protrusion with minimal inferior extrusion at that level. Please see above for detailed description at each level. Prior posterior fusion at L5-S1. Dictated by: Aime Major MD 12/19/2020 07:15 Aime Major MD in [place] 12/19/2020 07:15
== END ==
PROVIDERS: PCP Emergency Medicine; Visit Provider Emergency Medicine
DX: M54.9 Dorsalgia, unspecified (principal); M54.5 Low back pain
CPT/HCPCS: 72148; 76376

== ENCOUNTER → 2021-01-15 16:07 | Outpatient (CLI) | payer MEDICARE, OTHER, SELFPAY ==
[2021-01-15 17:10] LABS: Amphetamine/Metha Screen,Urine Negative ng/ml (<1000); Barbiturates Screen,Urine Negative ng/ml (<200)
[2021-01-15 17:11] LABS: Benzodiazepines Screen,Urine Negative ng/ml (<200)
[2021-01-15 17:12] LABS: Cannabinoid Screen,Urine Negative ng/ml (<50); Cocaine Screen,Urine Negative ng/ml (<300)
[2021-01-15 17:13] LABS: Methadone Screen,Urine Negative ng/ml (<300); Opiate Screen,Urine Positive ng/ml (<300)
[2021-01-15 17:14] LABS: Phencyclidine Screen,Urine Negative ng/ml (<25)
== END ==
PROVIDERS: Visit Provider Emergency Medicine
DX: Z79.899 Other long term (current) drug therapy (principal)
CPT/HCPCS: 80305

== ENCOUNTER 2021-02-22 12:12 | Emergency (ER) | payer MEDICARE, OTHER, SELFPAY ==
[2021-02-22 12:20] VITALS: BP 0/0; PULSE 0; RESP 0; TEMP -17.7; TEMP 0; O2SAT 0
== END 2021-02-22 12:20 | disposition left against medical advice (07) ==
LOC: ER 13:31
PROVIDERS: Emergency Provider Emergency Medicine; PCP Emergency Medicine
DX: Z53.21 Procedure and treatment not carried out due to patient leaving prior to being seen by health care provider (principal)
CPT/HCPCS: G0463; 99211

== ENCOUNTER 2021-03-21 05:46 | Inpatient (IN) | payer MEDICARE, OTHER, SELFPAY ==
[2021-03-21] VITALS (14 sets, daily range): BP systolic 99–114; BP diastolic 58–74; PULSE 70–105; RESP 3–26; TEMP 36.4–37.7; O2SAT 95–100; BMI 19.8; BMI 21.4
--- NOTE | 2021-03-21 05:43 | ECG_ITS ---
APPROVED REPORT Exam: Resting ECG HR:108 bpm ECG Measurements Heart Rate 108 AXES SD 152 P 57 QRSd 78 QRS 73 QT 332 T 29 QTc 444 Conclusion Sinus tachycardia Low voltage QRS Borderline ECG Electronically signed by : Micheal Saunders MD 03/21/2021 17:33:05
--- NOTE | 2021-03-21 05:46 | XR_ITS ---
PROCEDURE INFORMATION: Exam: XR Chest Exam date and time: 03/21/2021 5:46 AM Age: 70 years old Clinical indication: Shortness of breath; Additional info: SOA TECHNIQUE: Imaging protocol: XR of the chest. Views: 1 view. COMPARISON: CT LUNG SCREENING 12/29/2019 11:20 AM FINDINGS: Lungs: Minor peripheral left mid and lower lung infiltrate. Pleural spaces: Unremarkable. No pleural effusion. No pneumothorax. Heart/Mediastinum: Unremarkable. No cardiomegaly. Diaphragm: Elevated right hemidiaphragm. Bones/joints: Lower cervical fusion. IMPRESSION: 1. Minor peripheral left mid and lower lung infiltrate. 2. Elevated right hemidiaphragm. 3. Lower cervical fusion.
--- NOTE | 2021-03-21 05:51 | CT_ITS ---
PROCEDURE INFORMATION: Exam: CT Head Without Contrast Exam date and time: 03/21/2021 5:51 AM Age: 70 years old Clinical indication: Altered mental status/memory loss; Additional info: AMS TECHNIQUE: Imaging protocol: Computed tomography of the head without contrast. Radiation optimization: All CT scans at this facility use at least one of these dose optimization techniques: automated exposure control; mA and/or kV adjustment per patient size (includes targeted exams where dose is matched to clinical indication); or iterative reconstruction. COMPARISON: CT ANGIO NECK 02/16/2020 12:54 PM FINDINGS: Brain: Normal. No hemorrhage. Unremarkable white matter. No mass effect. Cerebral ventricles: No ventriculomegaly. Paranasal sinuses: Visualized sinuses are unremarkable. No fluid levels. Mastoid air cells: Minor inferior right mastoid inflammatory disease. Bones/joints: Unremarkable. No acute fracture. Soft tissues: Unremarkable. IMPRESSION: 1. No acute intracranial abnormalities. 2. Minor inferior right mastoid inflammatory disease.
[2021-03-21 06:00] LABS: ABG Base Excess -1.4 mmol/L (-2.4-2.3); ABG HCO3 26.8 mmhg (22.0-26.0); ABG Oxygen Saturation 98 % (90-100); Allen's Test Patient Unable; Microscopic, Urine URINE MICROSCOPIC (MICROSCOPIC)
[2021-03-21 06:00] LABS: Coronavirus 19, PCR Not Detected (NotDetected); Influenza A, PCR Not Detected (NotDetected); Influenza B, PCR Not Detected (NotDetected)
[2021-03-21 06:01] LABS: ABG PCO2 72.2 mmhg (35.0-45.0); ABG PH 7.19 mmol/L (7.35-7.45); Source Right Radial
[2021-03-21 06:02] LABS: Basophils # 0.1 K/mm3 (0-0.2); Basophils % 0.3 % (0.1-2.0); Eosinophils # 0.1 K/mm3 (0.0-0.4); Eosinophils % 0.2 % (0.1-12.0); Hematocrit 43.4 % (42.0-52.0); Lymphocytes # 1.3 K/mm3 (0.7-4.5); Lymphocytes % 6.4 % (10-50); Mean Corpuscular HGB Conc 30.1 g/dL (31.8-35.4); Mean Corpuscular Hemoglobin 31.2 pg (27.0-31.2); Mean Corpuscular Volume 103.7 fl (80-94); Mean Platelet Volume 8.1 fl (7.4-10.4); Monocytes # 0.8 K/mm3 (0.1-1.0); Monocytes % 4.2 % (1.7-9.3); Neutrophils # 17.9 K/mm3 (1.8-7.8); Neutrophils % 88.9 % (37.0-80.0); Platelet Count 303 K/mm3 (142-424); Red Blood Count 4.18 M/mm3 (4.60-6.20); Red Cell Distribution Width 12.7 % (11.5-17.5); White Blood Count 20.1 K/mm3 (4.8-10.8)
[2021-03-21 06:09] LABS: Alanine Aminotransferase 19 U/L (12-78); Albumin/Globulin Ratio 1.4 (1.1-1.8); Alkaline Phosphatase 156 U/L (38-126); Anion Gap 9.8 mEq/L (5-15); Aspartate Amino Transferase 29 U/L (17-59); Blood Urea Nitrogen 28 mg/dl (9-20); Calcium 8.6 mg/dl (8.4-10.2); Carbon Dioxide 35 mmol/L (22.0-30.0); Chloride 101 mmol/L (98-107); Creatinine Clearance Estimated 42 mL/min (50-200); Estimated Glomerular Filt Rate 40 ml/min (>60); GFR (African American) 49 ML/MIN (>60); Globulin 2.9 g/dL (1.3-3.2); Glucose 190 mg/dl (74-100); Lactic Acid 1.1 mmol/L (0.7-2.1); Potassium 5.8 mmoL/L (3.5-5.1); Sodium 140 mmol/L (136-145); Total Protein,Serum 6.9 g/dl (6.3-8.2)
--- NOTE | 2021-03-21 06:09 | PC.NURSE ---
notified of critical ABG
[2021-03-21 06:11] LABS: Appearance,Urine CLEAR (Clear); Bilirubin,Urine Negative (Negative); Blood, Urine Negative (Negative); Color,Urine YELLOW (Yellow); Glucose,Urine (UA) Negative (Negative); Ketones,Urine Negative (Negative); Leukocyte Esterase,Urine Negative (Negative); Nitrate,Urine Negative (Negative); Protein,Urine Negative (Negative); Urobilinogen,Urine 0.2 EU/dl (0.2)
[2021-03-21 06:14] LABS: C-Reactive Protein 14.1 mg/L (0-4)
[2021-03-21 06:20] LABS: Squamous Epithelial Cell,Urine Occasional #/hpf (0-5); WBC,Urine Occasional #/hpf (0-3)
[2021-03-21 06:28] LABS: Procalcitonin 0.112 ng/mL (0.0-2.0)
[2021-03-21 06:36] LABS: MANUAL DIFFERENTIAL MANUAL DIFFERENTIAL (MANUAL DIFF)
[2021-03-21 06:40] LABS: Troponin I 0.05 ng/ml (0.00-0.034)
--- NOTE | 2021-03-21 06:42 | PC.NURSE ---
Lab notified ER that UDS would be delayed d/t QC. notified
[2021-03-21 06:45] LABS: Bilirubin,Total < 0.1 mg/dl (0.2-1.3)
--- NOTE | 2021-03-21 06:50 | HMH.EDAMS ---
ED Disposition Clinical Impression: Tobacco use, SUSAN (acute kidney injury), Acute hyperkalemia, Severe sepsis with acute organ dysfunction Respiratory failure with hypercapnia Qualifiers: Chronicity: acute Qualified Code(s): J96.02 - Acute respiratory failure with hypercapnia COPD (chronic obstructive pulmonary disease) Qualifiers: COPD type: COPD with acute exacerbation Qualified Code(s): J44.1 - Chronic obstructive pulmonary disease with (acute) exacerbation Disposition: Admitted As Inpatient Condition on Discharge: Serious Instructions: DI for Altered Mental Status Referrals: Lebron Freeman MD [Primary Care Provider] - - Critical Care Critical Care Time: No Attestation: On 03/21/21, the high probability of a clinically significant, sudden or life threatening deterioration of the following system(s) required my full and direct attention, intervention and personal management. The time I documented below is in addition to time spent performing reported procedures but includes the following listed in this critical care notation. Medical Decision Making - Medical Records Medical records reviewed: Yes: I reviewed the patient's medical records. - Earl Inquiry Pt receiving controlled substance: No Vital Signs: 03/21/21 05:45 Temperature 99.8 F H Temperature Source Rectal Pulse Rate [Right] 104 H Respiratory Rate 26 H Blood Pressure [Left Arm] 114/62 Blood Pressure Mean [Left Arm] 79 Blood Pressure Source [Left Arm] Automatic Cuff Blood Pressure Position [Left Arm] Supine 02 Sat by Pulse Oximetry 100 Oxygen Delivery Method Non-Rebreather - Lab Data Lab results reviewed: Yes: I reviewed the patient's lab results. Lab Results 03/21/21 05:40: WBC 20.1 H*, RBC 4.18 L, Hgb 13.0 L, Hct 43.4, MCV 103.7 H, MCH 31.2, MCHC 30.1 L, RDW 12.7, Plt Count 303, MPV 8.1, Neut % (Auto) 88.9 H, Lymph % (Auto) 6.4 L, [place] % (Auto) 4.2, Eos % (Auto) 0.2, Baso % (Auto) 0.3, Neut # (Auto) 17.9 H, Lymph # (Auto) 1.3, [place] # (Auto) 0.8, Eos # (Auto) 0.1, Baso # (Auto) 0.1, Total Counted 100, Neutrophils % (Manual) 88 H, Lymphocytes % (Manual) 7 L, Monocytes % (Manual) 5, Platelet Estimate Normal, RBC Morphology Not Reportable, Hypochromasia 2+, Macrocytosis 1+, ESR 17 03/21/21 05:40: Sodium 140, Potassium 5.8 H, Chloride 101, Carbon Dioxide 35 H, Anion Gap 9.8, BUN 28 H, Creatinine 1.70 H, Estimated Creat Clear 42, Estimated GFR 40 L, Est GFR ( Amer) 49 L, Glucose 190 H, Calcium 8.6, Total Bilirubin < 0.1 L, AST 29, ALT 19, Alkaline Phosphatase 156 H, C-Reactive Protein 14.1 H, Total Protein 6.9, Albumin 4.0, Globulin 2.9, Albumin/Globulin Ratio 1.4 03/21/21 05:40: Lactate 1.1 03/21/21 05:40: Procalcitonin 0.112 03/21/21 05:40: Magnesium 2.0, Troponin I 0.05 H 03/21/21 05:40: Salicylates < 1.0 L, Acetaminophen < 10 L 03/21/21 05:40: Plasma/Serum Alcohol < 10 03/21/21 05:52: Specimen Source Right radial, O2 % 100% nrb, ABG pH 7.19 L*, ABG pCO2 72.2 H, ABG pO2 148.0 H, ABG HCO3 26.8 H, ABG Total CO2 29.0 H, ABG O2 Saturation 98, ABG Base Excess -1.4, Aime Test Patient unable 03/21/21 05:52: Urine Color Yellow, Urine Appearance Clear, Urine pH 5.0, Ur Specific [place] 1.020, Urine Protein Negative, Urine Glucose (UA) Negative, Urine Ketones Negative, Urine Blood Negative, Urine Nitrate Negative, Urine Bilirubin Negative, Urine Urobilinogen 0.2, Ur Leukocyte Esterase Negative, Urine WBC Occasional, Ur Squamous Epith Cells Occasional Result diagrams: 03/21/21 05:40 03/21/21 05:40 Orders (Tests/Meds): ED MEDICATIONS Discontinued Medications Generic Name Dose Route Start Last Admin Trade Name Freq PRN Reason Stop Dose Admin Acetaminophen 650 mg 03/21/21 05:48 03/21/21 05:55 Acetaminophen 650mg Suppository RC 03/21/21 05:49 650 mg ONCE ONE Administration Dexamethasone Sodium Phosphate 10 mg 03/21/21 05:48 03/21/21 05:55 Dexamethasone 4mg/Ml 5ml Mdv IV 03/21/21 05:49 10 mg ONCE ONE Administration
--- NOTE | 2021-03-21 06:52 | XR_ITS ---
FINAL REPORT CLINICAL HISTORY: fall, right hip pain FINDINGS: RIGHT HIP Three views demonstrate no acute fracture or dislocation. There are mild degenerative changes of the hips. There is postoperative change from fusion of L5-S1. A presumed bladder catheter is present. IMPRESSION: Degenerative change without acute process. Reviewed, Interpreted and Dictated by Gordy Shen III, MD Transcribed by Katie Louis Authenticated by Gordy Shen III, MD on 03/21/2021 07:38:58 AM [facility]
[2021-03-21 06:58] LABS: Acetaminophen < 10 ug/ml (10-30); Ethyl Alcohol < 10 mg/dl (0-10); Salicylate < 1.0 mg/dL (2.0-20.0)
[2021-03-21 07:04] LABS: Erythrocyte Sedimentation Rate 17 mm/hr (0-20)
[2021-03-21 07:08] LABS: Lymphocytes % 7 % (10-50); Monocytes % 5 % (2-9); Neutrophils % 88 % (42-76); Total Cells Counted 100
[2021-03-21 07:11] LABS: Hypochromasia 2+; Macrocytosis 1+
[2021-03-21 07:12] LABS: Platelet Estimate Normal
--- NOTE | 2021-03-21 07:15 | PC.NURSE ---
Resp placed pt on Bipap
--- NOTE | 2021-03-21 07:15 | PC.NURSE ---
s/w Lab, Covid swab has 12 min remaining.
[2021-03-21 07:20] LABS: Amphetamine/Metha Screen,Urine Negative ng/ml (<1000)
--- NOTE | 2021-03-21 07:20 | PC.NURSE ---
s/w solid waste division supervisor for bed assignment
[2021-03-21 07:21] LABS: Barbiturates Screen,Urine Negative ng/ml (<200); Benzodiazepines Screen,Urine Negative ng/ml (<200)
[2021-03-21 07:23] LABS: Cannabinoid Screen,Urine Negative ng/ml (<50); Opiate Screen,Urine Positive ng/ml (<300)
[2021-03-21 07:24] LABS: Phencyclidine Screen,Urine Negative ng/ml (<25)
--- NOTE | 2021-03-21 07:30 | PC.NURSE ---
s/w son Aime Ronald and updated on pt condition and that he would be adx. Also let him know pt is covid negative and will be allowed 1 healthy, non-quarantined family member from 7a-7p when adx to the floor
[2021-03-21 07:51] LABS: Cocaine Screen,Urine Negative ng/ml (<300)
[2021-03-21 07:52] LABS: Methadone Screen,Urine Negative ng/ml (<300)
--- NOTE | 2021-03-21 07:59 | PC.NURSE ---
0725 BED ASSIGNMENT REQUESTED FROM ED, SPOKE WITH ARSLAN LABOY RN CARE MANAGEMENT. ACUTE STATUS. ROOM 206, ALL STAFF NOTIFIED
--- NOTE | 2021-03-21 08:01 | PC.NURSE ---
Called report to Kristine REYES
--- NOTE | 2021-03-21 09:56 | HMH.HP ---
*Admission Date: 03/21/21 *Chief complaint: soa *History of present illness: 70-year-old male greater than 17-[id number] smoking history carries a diagnosis of COPD, lung cancer status post right upper lobectomy presented to the hospital with altered mentation and found to be having hypercarbic respiratory failure and pulmonary was called for further management.- per pulm [facility] History I have reviewed the patient's past medical history: Yes Medical History: Reports:: Chronic Obstructive Pulmonary Disease (COPD), Hyperlipidemia, Hypertension Denies:: Cancer, Diabetes Mellitus Type 1, Diabetes Mellitus Type 2, MRSA *Have you ever received a pneumonia vaccine?: Yes *Have you received a flu vaccine this season?: Yes Other Medical History: Reports: Arthritis, Fibromyalgia Other Surgeries: Yes: Cancer Surgery, Colonoscopy, Other Amputation: No Fractures: No - *Social History Smoking Status: Current every day smoker Tobacco Type: cigarettes # Packs/Day (cigarettes): 1 Alcohol Intake: never Substance Use Type: opiates, former substance user *Occupational Status:: retired Housing: house Household Members: other *Travel in the last 8 weeks: None Family Hx:: No significant family history Review of Systems - Review of Systems Review of systems:: unable to obtain - *Neurologic Denies seizure-like activity Meds Home Medications Medication Instructions Recorded Confirmed Type Albuterol Sulfate [Proventil Hfa] 1 inh INHALATION QID 03/21/21 03/21/21 History Atorvastatin Calcium [Lipitor 80mg 80 mg PO DAILY 03/21/21 03/21/21 History Tablet*] Clopidogrel Bisulfate [Plavix] 75 mg PO DAILY 03/21/21 03/21/21 History Enoxaparin Sodium [Lovenox 30 mg SQ DAILY 03/21/21 03/21/21 History 30mg/0.3mL syringe] Gabapentin 800 mg PO QID 03/21/21 03/21/21 History Hydrocodone/Acetaminophen [Lortab 1 tab PO TID 03/21/21 03/21/21 History 10/325mg tablet] Lisinopril/Hydrochlorothiazide 1 tab PO DAILY 03/21/21 03/21/21 History [Lisinopril-Hctz 20-12.5 mg Tab] Promethazine HCl [Phenergan 25mg See Rx Instructions .ROUTE .COMPLEX 03/21/21 03/21/21 History tab] Ropinirole HCl See Rx Instructions .ROUTE .COMPLEX 03/21/21 03/21/21 History Umeclidinium Brm/Vilanterol Tr See Rx Instructions .ROUTE .COMPLEX 03/21/21 03/21/21 History [Anoro Ellipta] clonazePAM [Clonazepam] 0.5 mg PO BID 03/21/21 03/21/21 History ondansetron HCL [Zofran 4mg Tab*] 4 mg PO DAILY 03/21/21 03/21/21 History Allergies Allergy/AdvReac Type Severity Reaction Status Date / Time aspirin [From [employer] Aspirin] Allergy Mild Upset Verified 01/15/21 11:43 stomach Exam Vital signs and Labs for Last 24 Hours: Temp Pulse Resp BP Pulse Ox 98.8 F 87 21 100/64 L 95 03/21/21 08:02 03/21/21 08:02 03/21/21 08:02 03/21/21 08:02 03/21/21 08:44 Laboratory Results - last 24 hr 03/21/21 05:40: WBC 20.1 H*, RBC 4.18 L, Hgb 13.0 L, Hct 43.4, MCV 103.7 H, MCH 31.2, MCHC 30.1 L, RDW 12.7, Plt Count 303, MPV 8.1, Neut % (Auto) 88.9 H, Lymph % (Auto) 6.4 L, [place] % (Auto) 4.2, Eos % (Auto) 0.2, Baso % (Auto) 0.3, Neut # (Auto) 17.9 H, Lymph # (Auto) 1.3, [place] # (Auto) 0.8, Eos # (Auto) 0.1, Baso # (Auto) 0.1, Total Counted 100, Neutrophils % (Manual) 88 H, Lymphocytes % (Manual) 7 L, Monocytes % (Manual) 5, Platelet Estimate Normal, RBC Morphology Not Reportable, Hypochromasia 2+, Macrocytosis 1+, ESR 17 03/21/21 05:40: Sodium 140, Potassium 5.8 H, Chloride 101, Carbon Dioxide 35 H, Anion Gap 9.8, BUN 28 H, Creatinine 1.70 H, Estimated Creat Clear 42, Estimated GFR 40 L, Est GFR ( Amer) 49 L, Glucose 190 H, Calcium 8.6, Total Bilirubin < 0.1 L, AST 29, ALT 19, Alkaline Phosphatase 156 H, C-Reactive Protein 14.1 H, Total Protein 6.9, Albumin 4.0, Globulin 2.9, Albumin/Globulin Ratio 1.4 03/21/21 05:40: Lactate 1.1 03/21/21 05:40: Procalcitonin 0.112 03/21/21 05:40: SARS-CoV-2 (PCR) Not detected, Influenza A Untype (PCR) Not detected, Influenza Type B (P
[2021-03-21 10:30] LABS: ABG Base Excess -2.3 mmol/L (-2.4-2.3); ABG HCO3 26.3 mmhg (22.0-26.0); ABG Oxygen Saturation 98 % (90-100); ABG PO2 131.5 mmhg (80-100); ABG TCO2 28.6 mmhg (23-27)
[2021-03-21 10:47] LABS: Oxygen 50 %
[2021-03-21 10:48] LABS: ABG PH 7.16 mmol/L (7.35-7.45); Allen's Test Patient Unable; Pressure Support 10; Source Right Radial; Vent Rate 20
[2021-03-21 10:49] LABS: ABG PCO2 74.8 mmhg (35.0-45.0)
[2021-03-21 11:41] LABS: Anion Gap 13.9 mEq/L (5-15); Blood Urea Nitrogen 27 mg/dl (9-20); Calcium 8.2 mg/dl (8.4-10.2); Carbon Dioxide 23 mmol/L (22.0-30.0); Chloride 106 mmol/L (98-107); Creatinine Clearance Estimated 59 mL/min (50-200); Estimated Glomerular Filt Rate 60 ml/min (>60); GFR (African American) 73 ML/MIN (>60); Glucose 90 mg/dl (74-100); Potassium 5.9 mmoL/L (3.5-5.1); Sodium 137 mmol/L (136-145)
[2021-03-21 11:53] LABS: Troponin I 0.07 ng/ml (0.00-0.034)
[2021-03-21 13:48] LABS: ABG Base Excess -2.2 mmol/L (-2.4-2.3); ABG HCO3 25.4 mmhg (22.0-26.0); ABG Oxygen Saturation 97 % (90-100); ABG PH 7.23 mmol/L (7.35-7.45); ABG PO2 98.1 mmhg (80-100); ABG TCO2 27.3 mmhg (23-27)
[2021-03-21 13:54] LABS: Oxygen 40 %
[2021-03-21 13:55] LABS: Allen's Test Patient Unable; Pressure Support 10; Source Right Radial; Vent Rate 20
[2021-03-21 13:56] LABS: ABG PCO2 62.8 mmhg (35.0-45.0)
--- NOTE | 2021-03-21 14:42 | PC.NURSE ---
MD Sammi notified ofcritical potassium of 6.8. Please refer to emar
--- NOTE | 2021-03-21 14:48 | HMH.PULMCON ---
*Admission Date: 03/21/21 *Reason for consult:: Acute hypoxic hypercarbic respiratory failure. *History of present illness: Mr. Cardenas is a 70-year-old male greater than 65-[id number]-ubnp smoking history carries a diagnosis of COPD, lung cancer status post right upper lobectomy presented to the hospital with altered mentation and found to be having hypercarbic respiratory failure and pulmonary was called for further management. [facility] History Medical History: Reports:: Chronic Obstructive Pulmonary Disease (COPD), Hyperlipidemia, Hypertension Denies:: Cancer, Diabetes Mellitus Type 1, Diabetes Mellitus Type 2, MRSA *Have you ever received a pneumonia vaccine?: Yes *Have you received a flu vaccine this season?: Yes Other Medical History: Reports: Arthritis, Fibromyalgia Other Surgeries: Yes: Cancer Surgery, Colonoscopy, Other Amputation: No Fractures: No - *Social History Smoking Status: Current every day smoker Tobacco Type: cigarettes # Packs/Day (cigarettes): 1 Alcohol Intake: never Substance Use Type: opiates, former substance user *Occupational Status:: retired Housing: house Household Members: other *Travel in the last 8 weeks: None Family Hx:: No significant family history ROS - Review of Systems Review of systems:: unable to obtain Pt aletred only responding to painful stimuli Meds Home Medications Medication Instructions Recorded Confirmed Type Albuterol Sulfate [Proventil Hfa] 1 inh INHALATION QID 03/21/21 03/21/21 History Atorvastatin Calcium [Lipitor 80mg 80 mg PO DAILY 03/21/21 03/21/21 History Tablet*] Clopidogrel Bisulfate [Plavix] 75 mg PO DAILY 03/21/21 03/21/21 History Enoxaparin Sodium [Lovenox 30 mg SQ DAILY 03/21/21 03/21/21 History 30mg/0.3mL syringe] Gabapentin 800 mg PO QID 03/21/21 03/21/21 History Hydrocodone/Acetaminophen [Lortab 1 tab PO TID 03/21/21 03/21/21 History 10/325mg tablet] Lisinopril/Hydrochlorothiazide 1 tab PO DAILY 03/21/21 03/21/21 History [Lisinopril-Hctz 20-12.5 mg Tab] Promethazine HCl [Phenergan 25mg See Rx Instructions .ROUTE .COMPLEX 03/21/21 03/21/21 History tab] Ropinirole HCl See Rx Instructions .ROUTE .COMPLEX 03/21/21 03/21/21 History Umeclidinium Brm/Vilanterol Tr See Rx Instructions .ROUTE .COMPLEX 03/21/21 03/21/21 History [Anoro Ellipta] clonazePAM [Clonazepam] 0.5 mg PO BID 03/21/21 03/21/21 History ondansetron HCL [Zofran 4mg Tab*] 4 mg PO DAILY 03/21/21 03/21/21 History Allergies Allergy/AdvReac Type Severity Reaction Status Date / Time aspirin [From [facility] Aspirin] Allergy Mild Upset Verified 01/15/21 11:43 stomach Exam - Constitutional Constitutional:: Absent: no acute distress, comfortable - HENMT Exam HENMT: Present: normocephalic - Eye Exam Eyes:: Present: normal appearance both eyes and related structures - Neck Exam Neck:: Present: normal visual inspection - Respiratory Exam Respiratory:: Present: respiratory distress, decreased breath sounds, wheezing. Absent: able to speak in complete sentences - Cardiovascular Exam Cardiac:: Present: S1, S2 - GI Exam GI:: Present: soft - Skin Exam Skin: Present: warm, no rash - Neurological Exam Neurological: Absent: alert, awake, normal cognition - Extremities Exam Extremities: Present: no cyanosis, no clubbing, no edema Internal Medicine - CN: Reslt - Labs CBC & Chem 7: 03/21/21 05:40 03/21/21 09:35 Labs: Short CBC 03/21/21 Range/Units 05:40 WBC 20.1 H* (4.8-10.8) K/mm3 Hgb 13.0 L (14.1-18.0) g/dL Hct 43.4 (42.0-52.0) % Plt Count 303 (142-424) K/mm3 BMP 03/21/21 03/21/21 05:40 09:35 Sodium 140 137 Potassium 5.8 H 5.9 H Chloride 101 106 Carbon Dioxide 35 H 23 BUN 28 H 27 H Creatinine 1.70 H 1.20 D Glucose 190 H 90 D Calcium 8.6 8.2 L Cardiac Enzymes 03/21/21 03/21/21 Range/Units 05:40 09:35 Troponin I 0.05 H 0.07 H (0.00-0.034) ng/ml Liver Function 03/21/21 Range
[2021-03-21 15:10] LABS: Adenovirus,PCR Not Detected (NotDetected); Bordetella Pertussis Not Detected (NotDetected); Chlamydophila Pneumoniae, PCR Not Detected (NotDetected); Coronavirus 229E Not Detected (NotDetected); Coronavirus NL63 Not Detected (NotDetected); Coronavirus OC43 Not Detected (NotDetected); Coronovirus HKU1,PCR Not Detected (NotDetected); Human Metapneumovirus Not Detected (NotDetected); Influenza A, PCR Not Detected (NotDetected); Influenza AH1, 2009 Not Detected (NotDetected); Influenza AH1, PCR Not Detected (NotDetected); Influenza AH3,PCR Not Detected (NotDetected); Influenza B, PCR Not Detected (NotDetected); Mycoplasma Pneumoniae, PCR Not Detected (NotDetected); Parainfluenza 1, PCR Not Detected (NotDetected); Parainfluenza 2, PCR Not Detected (NotDetected); Parainfluenza 3, PCR Not Detected (NotDetected); Parainfluenza 4, PCR Not Detected (NotDetected); Respiratory Syncytial Virus Not Detected (NotDetected); Rhinovirus/Enterovirus Not Detected (NotDetected)
[2021-03-21 15:26] LABS: Chloride 101 mmol/L (98-107); Sodium 137 mmol/L (136-145)
[2021-03-21 15:29] LABS: Anion Gap 10.8 mEq/L (5-15); Blood Urea Nitrogen 24 mg/dl (9-20); Carbon Dioxide 32 mmol/L (22.0-30.0); Creatinine Clearance Estimated 64 mL/min (50-200); Estimated Glomerular Filt Rate 66 ml/min (>60); GFR (African American) 80 ML/MIN (>60); Glucose 135 mg/dl (74-100)
[2021-03-21 15:37] LABS: Troponin I 0.05 ng/ml (0.00-0.034)
[2021-03-21 15:38] LABS: Potassium 6.8 mmoL/L (3.5-5.1)
[2021-03-21 18:26] LABS: Creatine Kinase 100 U/L (55-170)
[2021-03-21 23:28] LABS: ABG Base Excess -2.1 mmol/L (-2.4-2.3); ABG HCO3 23.7 mmhg (22.0-26.0); ABG Oxygen Saturation 94 % (90-100); ABG PH 7.34 mmol/L (7.35-7.45); ABG PO2 66.7 mmhg (80-100); ABG TCO2 25.1 mmhg (23-27); Allen's Test Acceptable; Oxygen 30 %; Source Left Radial
[2021-03-22] VITALS (14 sets, daily range): BP systolic 108–129; BP diastolic 50–70; PULSE 76–107; RESP 16–20; TEMP 36.6–37.1; O2SAT 96–100; BMI 26.6; BMI 26.5
[2021-03-22 07:33] LABS: Basophils % 0.2 % (0.1-2.0); Hematocrit 41.1 % (42.0-52.0); Hemoglobin 12.4 g/dL (14.1-18.0); Lymphocytes # 2.1 K/mm3 (0.7-4.5); Lymphocytes % 17.8 % (10-50); Mean Corpuscular HGB Conc 30.3 g/dL (31.8-35.4); Mean Corpuscular Hemoglobin 31.2 pg (27.0-31.2); Mean Corpuscular Volume 103.2 fl (80-94); Mean Platelet Volume 9.2 fl (7.4-10.4); Monocytes # 1.2 K/mm3 (0.1-1.0); Monocytes % 10.7 % (1.7-9.3); Neutrophils # 8.3 K/mm3 (1.8-7.8); Neutrophils % 71.3 % (37.0-80.0); Platelet Count 264 K/mm3 (142-424); Red Blood Count 3.98 M/mm3 (4.60-6.20); Red Cell Distribution Width 12.8 % (11.5-17.5); White Blood Count 11.6 K/mm3 (4.8-10.8)
[2021-03-22 07:39] LABS: Anion Gap 8.8 mEq/L (5-15); Blood Urea Nitrogen 25 mg/dl (9-20); Calcium 8.7 mg/dl (8.4-10.2); Carbon Dioxide 29 mmol/L (22.0-30.0); Chloride 101 mmol/L (98-107); Creatinine Clearance Estimated 88 mL/min (50-200); Estimated Glomerular Filt Rate 74 ml/min (>60); GFR (African American) 90 ML/MIN (>60); Glucose 125 mg/dl (74-100); Magnesium 1.8 mg/dl (1.6-2.3); Potassium 4.8 mmoL/L (3.5-5.1); Sodium 134 mmol/L (136-145)
--- NOTE | 2021-03-22 11:31 | HMH.HP ---
*Admission Date: 03/21/21 *History of present illness: 70-year-old male greater than [id number] smoking history carries a diagnosis of COPD, lung cancer status post right upper lobectomy presented to the hospital with altered mentation and found to be having hypercarbic respiratory failure and pulmonary was called for further management.- per pulm [facility] History Medical History: Reports:: Chronic Obstructive Pulmonary Disease (COPD), Hyperlipidemia, Hypertension Denies:: Cancer, Diabetes Mellitus Type 1, Diabetes Mellitus Type 2, MRSA *Have you ever received a pneumonia vaccine?: Yes *Have you received a flu vaccine this season?: Yes Other Medical History: Reports: Arthritis, Fibromyalgia Other Surgeries: Yes: Cancer Surgery, Colonoscopy, Other Amputation: No Fractures: No - *Social History Smoking Status: Current every day smoker Tobacco Type: cigarettes # Packs/Day (cigarettes): 1 Alcohol Intake: never Substance Use Type: opiates, former substance user *Occupational Status:: retired Housing: house Household Members: other *Travel in the last 8 weeks: None Family Hx:: No significant family history Review of Systems - *Neurologic Denies seizure-like activity Meds Home Medications Medication Instructions Recorded Confirmed Type Albuterol Sulfate [Proventil Hfa] 1 inh INHALATION QID 03/21/21 03/21/21 History Atorvastatin Calcium [Lipitor 80mg 80 mg PO DAILY 03/21/21 03/21/21 History Tablet*] Clopidogrel Bisulfate [Plavix] 75 mg PO DAILY 03/21/21 03/21/21 History Enoxaparin Sodium [Lovenox 30 mg SQ DAILY 03/21/21 03/21/21 History 30mg/0.3mL syringe] Gabapentin 800 mg PO QID 03/21/21 03/21/21 History Hydrocodone/Acetaminophen [Lortab 1 tab PO TID 03/21/21 03/21/21 History 10/325mg tablet] Lisinopril/Hydrochlorothiazide 1 tab PO DAILY 03/21/21 03/21/21 History [Lisinopril-Hctz 20-12.5 mg Tab] Promethazine HCl [Phenergan 25mg See Rx Instructions .ROUTE .COMPLEX 03/21/21 03/21/21 History tab] Ropinirole HCl See Rx Instructions .ROUTE .COMPLEX 03/21/21 03/21/21 History Umeclidinium Brm/Vilanterol Tr See Rx Instructions .ROUTE .COMPLEX 03/21/21 03/21/21 History [Anoro Ellipta] clonazePAM [Clonazepam] 0.5 mg PO BID 03/21/21 03/21/21 History ondansetron HCL [Zofran 4mg Tab*] 4 mg PO DAILY 03/21/21 03/21/21 History Allergies Allergy/AdvReac Type Severity Reaction Status Date / Time aspirin [From [facility] [place] [facility] ([facility]: [place]) Aspirin] Allergy Mild Upset Verified 01/15/21 11:43 stomach Exam Vital signs and Labs for Last 24 Hours: Temp Pulse Resp BP Pulse Ox 98.3 F 94 H 16 108/50 L 97 03/22/21 08:00 03/22/21 11:02 03/22/21 08:00 03/22/21 08:00 03/22/21 11:02 Laboratory Results - last 24 hr 03/21/21 05:40: Chlamy pneumoniae PCR Not detected, Adenovirus (PCR) Not detected, B. pertussis DNA (PCR) Not detected, Coronavirus OC43 (PCR) Not detected, Coronavirus HKU1 (PCR) Not detected, Coronavirus 229E (PCR) Not detected, Coronavirus NL63 (PCR) Not detected, Human Metapneumovir PCR Not detected, Influenza A (H1) PCR Not detected, Influ A (H1N1/09) PCR Not detected, Influenza A (H3) PCR Not detected, Influenza Type A (PCR) Not detected, Influenza Type B (PCR) Not detected, M. pneumoniae (PCR) Not detected, Parainfluenza 1 (PCR) Not detected, Parainfluenza 2 (PCR) Not detected, Parainfluenza 3 (PCR) Not detected, Parainfluenza 4 (PCR) Not detected, RSV (PCR) Not detected, Entero/Rhino (PCR) Not detected 03/21/21 09:35: Troponin I 0.07 H 03/21/21 09:35: Sodium 137, Potassium 5.9 H, Chloride 106, Carbon Dioxide 23, Anion Gap 13.9, BUN 27 H, Creatinine 1.20 D, Estimated Creat Clear 59, Estimated GFR 60, Est GFR ( Amer) 73 D, Glucose 90 D, Calcium 8.2 L 03/21/21 12:15: Troponin I 0.05 H 03/21/21 13:45: Specimen Source Right radial, O2 % 40, ABG pH 7.23 L*, ABG pCO2 62.8 H, ABG pO2 98.1, ABG HCO3 25.4, ABG Total CO2 27.3 H, ABG O2 Saturation 97, ABG Base Excess -2.2, Aime Test Patient unable, Vent Rate 20
--- NOTE | 2021-03-22 11:43 | HMH.ACPN2 ---
Internal Medicine - PN: Subj *Date: 03/22/21 *Time: 11:43 Interval history: Patient looks better today. He still has some residual dyspnea. He is 96 to 97% on 2-1/2 L per nasal cannula. His white count is diminishing. Initial hypercapnia improved on BiPAP. X-ray shows infiltrative process in the left base and mid field. He is status post a right upper lobe lobectomy. Blood cultures are pending. X-ray of his hip shows osteoarthritis without fracture CT of the head was negative for intracranial changes. He is alert lucid and clear. I have visited him today in the presence of his grandson who notes improvement. Patient still reports some dyspnea and cough. Does not feel back to baseline yet Exam Vital signs and Labs for Last 24 Hours: Temp Pulse Resp BP Pulse Ox 98.3 F 94 H 16 108/50 L 97 03/22/21 08:00 03/22/21 11:02 03/22/21 08:00 03/22/21 08:00 03/22/21 11:02 Laboratory Results - last 24 hr 03/21/21 05:40: Chlamy pneumoniae PCR Not detected, Adenovirus (PCR) Not detected, B. pertussis DNA (PCR) Not detected, Coronavirus OC43 (PCR) Not detected, Coronavirus HKU1 (PCR) Not detected, Coronavirus 229E (PCR) Not detected, Coronavirus NL63 (PCR) Not detected, Human Metapneumovir PCR Not detected, Influenza A (H1) PCR Not detected, Influ A (H1N1/09) PCR Not detected, Influenza A (H3) PCR Not detected, Influenza Type A (PCR) Not detected, Influenza Type B (PCR) Not detected, M. pneumoniae (PCR) Not detected, Parainfluenza 1 (PCR) Not detected, Parainfluenza 2 (PCR) Not detected, Parainfluenza 3 (PCR) Not detected, Parainfluenza 4 (PCR) Not detected, RSV (PCR) Not detected, Entero/Rhino (PCR) Not detected 03/21/21 09:35: Troponin I 0.07 H 03/21/21 09:35: Sodium 137, Potassium 5.9 H, Chloride 106, Carbon Dioxide 23, Anion Gap 13.9, BUN 27 H, Creatinine 1.20 D, Estimated Creat Clear 59, Estimated GFR 60, Est GFR ( Amer) 73 D, Glucose 90 D, Calcium 8.2 L 03/21/21 12:15: Troponin I 0.05 H 03/21/21 13:45: Specimen Source Right radial, O2 % 40, ABG pH 7.23 L*, ABG pCO2 62.8 H, ABG pO2 98.1, ABG HCO3 25.4, ABG Total CO2 27.3 H, ABG O2 Saturation 97, ABG Base Excess -2.2, Aime Test Patient unable, Vent Rate 20, Tidal Volume bipap 18/8 03/21/21 14:42: Sodium 137, Potassium 6.8 H*, Chloride 101, Carbon Dioxide 32 H, Anion Gap 10.8, BUN 24 H, Creatinine 1.10, Estimated Creat Clear 64, Estimated GFR 66, Est GFR ( Amer) 80, Glucose 135 H D, Calcium 8.0 L 03/21/21 14:42: Total Creatine Kinase 100 03/21/21 18:00: Specimen Source Left radial, O2 % 30, ABG pH 7.34 L, ABG pCO2 45.0, ABG pO2 66.7 L, ABG HCO3 23.7, ABG Total CO2 25.1, ABG O2 Saturation 94, ABG Base Excess -2.1, Aime Test Acceptable 03/22/21 06:30: WBC 11.6 H D, RBC 3.98 L, Hgb 12.4 L, Hct 41.1 L, MCV 103.2 H, MCH 31.2, MCHC 30.3 L, RDW 12.8, Plt Count 264, MPV 9.2, Neut % (Auto) 71.3, Lymph % (Auto) 17.8, [place] % (Auto) 10.7 H, Eos % (Auto) 0.0 L, Baso % (Auto) 0.2, Neut # (Auto) 8.3 H, Lymph # (Auto) 2.1, [place] # (Auto) 1.2 H, Eos # (Auto) 0.0, Baso # (Auto) 0.0 03/22/21 06:30: Sodium 134 L, Potassium 4.8 D, Chloride 101, Carbon Dioxide 29, Anion Gap 8.8, BUN 25 H, Creatinine 1.00, Estimated Creat Clear 88, Estimated GFR 74, Est GFR ( Amer) 90, Glucose 125 H, Calcium 8.7, Magnesium 1.8 I & O for Last 24 hours: Intake & Output 03/19/21 03/20/21 03/21/21 03/22/21 23:59 23:59 23:59 23:59 Intake Total 1000 / 1060 300 / 300 Output Total 1800 / 1800 800 / 800 Balance -800 / -740 -500 / -500 Weight 157 lb 15.379 oz 196 lb 4.8 oz - Constitutional no acute distress, thin, cooperative - *Routine HEENT Exam Head: Present: normocephalic Eye: Present: EOMI, PERRL ENT: Present: mucous membranes moist - *Routine Neck Exam Present: supple, trachea midline - *Routine Respiratory Exam Present: rhonchi, crackles, distant breath sounds. Absent: accessory muscle use, respiratory distress - *Routine Cardiovascular Exam Present: RRR - *Routine Abdominal E
--- NOTE | 2021-03-22 14:45 | P.CONPHA_ITS ---
[facility] Pharmacy VTE Monitoring - Patient Demographics Admission date: 03/22/21 Report Date: 03/22/21 Time: 14:45 Allergies/Adverse Reactions: Patient Allergies aspirin [From Bernard Aspirin] Allergy (Mild, Verified 01/15/21 11:43) Upset stomach Height: 1.83 m Weight: 89.04 kg Patient Problems: Current Active Problems Respiratory failure with hypercapnia (Acute) Tobacco use (Acute) SUSAN (acute kidney injury) (Acute) Acute hyperkalemia (Acute) Severe sepsis with acute organ dysfunction (Acute) COPD (chronic obstructive pulmonary disease) (Chronic) - VTE Risk Labs: VTE Related Lab Results Hgb 12.4 g/dL (14.1-18.0) L 03/22/21 06:30 Hct 41.1 % (42.0-52.0) L 03/22/21 06:30 Plt Count 264 K/mm3 (142-424) 03/22/21 06:30 BUN 25 mg/dl (9-20) H 03/22/21 06:30 Creatinine 1.00 mg/dl (0.66-1.25) 03/22/21 06:30 Estimated Creat Clear 88 mL/min (50-200) 03/22/21 06:30 - Prophylaxis Types of VTE Prophylaxis: TEDS Knee High, Pharmacological Location of Applied Device: Bilateral Lower Extremeties (MUKESH HOSE.), Not Applicable Pharmacologic Type: Enoxaparin
--- NOTE | 2021-03-22 16:50 | PC.NURSE ---
spoke with MD regarding pts home medications. New orders received
[2021-03-23] VITALS (12 sets, daily range): BP systolic 123–159; BP diastolic 65–91; PULSE 65–97; RESP 15–19; TEMP 36.6–36.7; O2SAT 95–99; BMI 26.2; BMI 26.4
--- NOTE | 2021-03-23 11:55 | HMH.ACPN2 ---
Internal Medicine - PN: Subj *Date: 03/23/21 *Time: 11:55 Interval history: Patient is not back to baseline yet. Labs are okay, hyperkalemia has resolved. He is maintaining decent saturations on nasal cannula blood cultures no growth at 48 hours. He is x-ray demonstrated pneumonia, get another film today and then daily in sequential fashion. Crackles at his left base. Patient is complaining of pain in his legs and feet. We will restart his home regimen which includes gabapentin and [place]. We encouraged the patient to mobilize, he needs to be up in the chair cough and deep breathing. He remains on Levaquin and prednisone Exam Vital signs and Labs for Last 24 Hours: Temp Pulse Resp BP Pulse Ox 98.1 F 91 H 16 140/70 98 03/23/21 11:08 03/23/21 11:08 03/23/21 11:08 03/23/21 11:08 03/23/21 11:08 I & O for Last 24 hours: Intake & Output 03/20/21 03/21/21 03/22/21 03/23/21 23:59 23:59 23:59 23:59 Intake Total 1000 / 1060 900 / 900 758 / 758 Output Total 1800 / 1800 1750 / 1750 1700 / 1700 Balance -800 / -740 -850 / -850 -942 / -942 Weight 157 lb 15.379 oz 196 lb 3.382 oz 194 lb Microbiology Reports for the Last 24 Hours: Microbiology 03/21/21 05:52 Blood Blood Culture - Preliminary NO GROWTH AFTER 48 HOURS 03/21/21 05:52 Blood Blood Culture - Preliminary NO GROWTH AFTER 48 HOURS - Constitutional no acute distress, thin, cooperative - *Routine HEENT Exam Head: Present: normocephalic Eye: Present: EOMI, PERRL ENT: Present: mucous membranes moist - *Routine Neck Exam Present: supple. Absent: lymphadenopathy - *Routine Respiratory Exam Present: rhonchi, crackles, diminished air movement. Absent: accessory muscle use - *Routine Cardiovascular Exam Present: RRR - *Routine Abdominal Exam Present: soft, normoactive bowel sounds. Absent: tenderness - *Routine Extremities Exam Present: tenderness. Absent: cyanosis, clubbing, edema, calf tenderness - *Routine Skin Exam Present: warm. Absent: rash - *Routine Neurological Exam Present: alert, oriented X3, moving all extremities, tremors. Absent: altered mental status Assessment and Plan (1) SUSAN (acute kidney injury) Status: Acute Category: Medical Code(s): N17.9 - Acute kidney failure, unspecified (2) Respiratory failure with hypercapnia Status: Acute Qualifiers: Chronicity: acute Qualified Code(s): J96.02 - Acute respiratory failure with hypercapnia Category: Medical Code(s): J96.92 - Respiratory failure, unspecified with hypercapnia (3) Severe sepsis with acute organ dysfunction Status: Acute Category: Medical Code(s): A41.9 - Sepsis, unspecified organism; R65.20 - Severe sepsis without septic shock (4) Tobacco use Status: Acute Category: Social Hx Code(s): Z72.0 - Tobacco use (5) COPD (chronic obstructive pulmonary disease) Status: Chronic Qualifiers: COPD type: COPD with acute exacerbation Qualified Code(s): J44.1 - Chronic obstructive pulmonary disease with (acute) exacerbation Category: Medical Code(s): J44.9 - Chronic obstructive pulmonary disease, unspecified - Assessment and plan all Dx Assessment and Plan for all problems:: Will continue current regimen as patient has not yet rounded the corner. Crackle are audible in the left mid field., Continue current antibiotic coverage. Discussed with who was present in the room at the time of the exam.
--- NOTE | 2021-03-23 18:42 | PC.NURSE ---
pt is up in the chair. tolerating ambulating to the chair. o2 and vs stable.
[2021-03-24 04:00] VITALS: BP 129/70; PULSE 83; RESP 19; TEMP 36.6; O2SAT 96
[2021-03-24 05:00] VITALS: BMI 26.2
[2021-03-24 05:54] VITALS: PULSE 64; PULSE 70; O2SAT 95
--- NOTE | 2021-03-24 06:00 | XR_ITS ---
FINAL REPORT CLINICAL HISTORY: pneumonia COMPARISON: March 21, 2021 FINDINGS: The heart size is normal. The mediastinum is normal. There is elevation of the right hemidiaphragm. There is mild scarring or atelectasis in the lung bases. There are no pleural effusions. There is no pneumothorax. There is no osseous abnormality. IMPRESSION: Mild bibasilar scarring or atelectasis. Reviewed, Interpreted and Dictated by Gordy Shen III, MD Transcribed by Petey Reveles Authenticated by Gordy Shen III, MD on 03/24/2021 07:24:42 AM [facility]
--- NOTE | 2021-03-24 08:57 | SW/DCPLANNER ---
The plan is for this patient to discharge home today. Patient stated that he currently has home O2 w/ [facility]. I called patients son (Aime) and he stated that he would be to pick this patient up this morning.
--- NOTE | 2021-03-24 09:12 | HMH.DCSUM ---
General - General Admission date:: 03/21/21 Discharge date: 03/24/21 HPI HPI: 70-year-old male greater than [id number] smoking history carries a diagnosis of COPD, lung cancer status post right upper lobectomy presented to the hospital with altered mentation and found to be having hypercarbic respiratory failure and pulmonary was called for further management.- per pulm Hospital Course Hospital Course: Laboratory Tests 03/21/21 03/21/21 03/21/21 05:40 05:40 05:40 WBC 20.1 H* RBC 4.18 L Hgb 13.0 L Hct 43.4 MCV 103.7 H MCH 31.2 MCHC 30.1 L RDW 12.7 Plt Count 303 MPV 8.1 Neut % (Auto) 88.9 H Lymph % (Auto) 6.4 L [place] % (Auto) 4.2 Eos % (Auto) 0.2 Baso % (Auto) 0.3 Neut # (Auto) 17.9 H Lymph # (Auto) 1.3 [place] # (Auto) 0.8 Eos # (Auto) 0.1 Baso # (Auto) 0.1 Total Counted 100 Neutrophils % (Manual) 88 H Lymphocytes % (Manual) 7 L Monocytes % (Manual) 5 Platelet Estimate Normal RBC Morphology Not Reportable Hypochromasia 2+ Macrocytosis 1+ ESR 17 Specimen Source O2 % ABG pH ABG pCO2 ABG pO2 ABG HCO3 ABG Total CO2 ABG O2 Saturation ABG Base Excess Aime Test Vent Rate Tidal Volume Sodium 140 Potassium 5.8 H Chloride 101 Carbon Dioxide 35 H Anion Gap 9.8 BUN 28 H Creatinine 1.70 H Estimated Creat Clear 42 Estimated GFR 40 L Est GFR ( Amer) 49 L Glucose 190 H Lactate 1.1 Calcium 8.6 Magnesium Total Bilirubin < 0.1 L AST 29 ALT 19 Alkaline Phosphatase 156 H Total Creatine Kinase Troponin I C-Reactive Protein 14.1 H Total Protein 6.9 Albumin 4.0 Globulin 2.9 Albumin/Globulin Ratio 1.4 Procalcitonin Urine Color Urine Appearance Urine pH Ur Specific [place] Urine Protein Urine Glucose (UA) Urine Ketones Urine Blood Urine Nitrate Urine Bilirubin Urine Urobilinogen Ur Leukocyte Esterase Urine WBC Ur Squamous Epith Cells Salicylates Urine Opiates Screen Urine Methadone Screen Acetaminophen Ur Barbituates Screen Ur Phencyclidine Scrn Ur Amphetamines Screen U Benzodiazepines Scrn Urine Cocaine Screen U Marijuana (THC) Screen Plasma/Serum Alcohol Chlamy pneumoniae PCR Adenovirus (PCR) B. pertussis DNA (PCR) Coronavirus OC43 (PCR) Coronavirus HKU1 (PCR) Coronavirus 229E (PCR) SARS-CoV-2 (PCR) Coronavirus NL63 (PCR) Human Metapneumovir PCR Influenza A (H1) PCR Influ A (H1N1/09) PCR Influenza A (H3) PCR Influenza Type A (PCR) Influenza A Untype (PCR) Influenza Type B (PCR) M. pneumoniae (PCR) Parainfluenza 1 (PCR) Parainfluenza 2 (PCR) Parainfluenza 3 (PCR) Parainfluenza 4 (PCR) RSV (PCR) Entero/Rhino (PCR) 03/21/21 03/21/21 03/21/21 05:40 05:40 05:40 WBC RBC Hgb Hct MCV MCH MCHC RDW Plt Count MPV Neut % (Auto) Lymph % (Auto) [place] % (Auto) Eos % (Auto) Baso % (Auto) Neut # (Auto) Lymph # (Auto) [place] # (Auto) Eos # (Auto) Baso # (Auto) Total Counted Neutrophils % (Manual) Lymphocytes % (Manual) Monocytes % (Manual) Platelet Estimate RBC Morphology Hypochromasia Macrocytosis ESR Specimen Source O2 % ABG pH ABG pCO2 ABG pO2 ABG HCO3 ABG Total CO2 ABG O2 Saturation ABG Base Excess Aime Test Vent Rate Tidal Volume Sodium Potassium Chloride Carbon Dioxide Anion Gap BUN Creatinine Estimated Creat Clear Estimated GFR Est GFR ( Amer) Glucose Lactate Calcium Magnesium 2.0 Total Bilirubin AST ALT Alkaline Phosphatase Total Creatine Kinase Troponin I 0.05 H C-Reactive Protein Total Protein Albumin
--- NOTE | 2021-03-24 09:31 | HMH.PULMPN ---
Internal Medicine - PN: Subj *Date: 03/24/21 *Time: 09:31 Assessment and Plan (1) SUSAN (acute kidney injury) Status: Acute Category: Medical Code(s): N17.9 - Acute kidney failure, unspecified (2) Respiratory failure with hypercapnia Status: Acute Qualifiers: Chronicity: acute Qualified Code(s): J96.02 - Acute respiratory failure with hypercapnia Category: Medical Code(s): J96.92 - Respiratory failure, unspecified with hypercapnia (3) Severe sepsis with acute organ dysfunction Status: Acute Category: Medical Code(s): A41.9 - Sepsis, unspecified organism; R65.20 - Severe sepsis without septic shock (4) Tobacco use Status: Acute Category: Social Hx Code(s): Z72.0 - Tobacco use (5) COPD (chronic obstructive pulmonary disease) Status: Chronic Qualifiers: COPD type: COPD with acute exacerbation Qualified Code(s): J44.1 - Chronic obstructive pulmonary disease with (acute) exacerbation Category: Medical Code(s): J44.9 - Chronic obstructive pulmonary disease, unspecified - Assessment and plan all Dx Assessment and Plan for all problems:: #Acute hypercarbic respiratory failure: #COPD exacerbation: #Community-acquired pneumonia 70-year-old greater than [id number] smoking history, H/O COPD. Presents with altered mentation found to be in hypercarbic respiratory failure with a pH of 7.19 and PCO2 of 72. CT head no acute findings Comprehensive respiratory viral PCR and COVID-19 PCR negative. Leukocytosis noted on admission Hemodynamically stable. Chest x-ray showed minimal left lower lobe infiltrate along with elevated right hemidiaphragm. No obvious consolidation noted. Patient received aggressive nebulization therapies and was eventually weaned to nasal cannula. Blood cultures no growth 48 hours. Continue to receive DuoNebs every 6 hours scheduled along with levofloxacin. Plan: -Continue levofloxacin 750mg daily IV for a total of 5 days for CAP. -Continue DuoNebs every 6 hours scheduled along with budesonide every 12 scheduled, can be discharged on triple inhaler therapy -Continue prednisone 40 mg daily for total of 5 days -Evaluation of other possible etiologies of altered mentation as per primary team. #Thank you for involving pulmonary in this patient care. We will continue to follow.
--- NOTE | 2021-03-24 10:37 | HMH.PHAINT ---
DISCHARGE MEDICATION COUNSELING PROVIDED. DISCUSSED ADDITION OF SHORT-COURSE LEVOFLOXACIN AND PREDNISONE. DISCUSSED HOW TO TAKE (MAY WANT TO TAKE WITH FOOD, TAKE STEROID IN THE AM), POSSIBLE SIDE EFFECTS. PATIENT ENDORSED NO QUESTIONS AT THIS TIME.
== END 2021-03-24 11:48 | disposition home or self-care (01) | DRG 871 ==
LOC: ER 06:39 → 2ND 07:32
PROVIDERS: Internal Medicine Pulmonary Disease; Admitting Provider Emergency Medicine; Emergency Provider Emergency Medicine; PCP Emergency Medicine; Visit Provider Family Medicine
DX: A41.9 Sepsis, unspecified organism (principal); J96.02 Acute respiratory failure with hypercapnia; J18.9 Pneumonia, unspecified organism; J44.1 Chronic obstructive pulmonary disease with (acute) exacerbation; N17.9 Acute kidney failure, unspecified; J44.0 Chronic obstructive pulmonary disease with (acute) lower respiratory infection; R65.20 Severe sepsis without septic shock; E87.5 Hyperkalemia; Z99.81 Dependence on supplemental oxygen; F17.210 Nicotine dependence, cigarettes, uncomplicated; M19.90 Unspecified osteoarthritis, unspecified site; E78.5 Hyperlipidemia, unspecified; I10 Essential (primary) hypertension; M79.7 Fibromyalgia; Z20.822 Contact with and (suspected) exposure to COVID-19; Z85.118 Personal history of other malignant neoplasm of bronchus and lung
CPT/HCPCS: 36415; 70450; 71045; 73502; 80048; 80053; 80305; 80329; 81001; 82550; 82803; 83605; 83735; 84145; 84484; 85007; 85025; 85651; 86140; 87040; 87486; 87581; 87632; 87798; 93005; 94640; 94660; 96365; 96366; 96367; 96375; 99285; C9803; J1956; U0003; U0005

== ENCOUNTER 2021-04-09 18:23 | Emergency (ER) | payer MEDICARE, OTHER, SELFPAY ==
--- NOTE | 2021-04-09 18:46 | XR_ITS ---
PROCEDURE INFORMATION: Exam: XR Chest Exam date and time: 04/09/2021 6:46 PM Age: 70 years old Clinical indication: Shortness of breath; Additional info: SOB TECHNIQUE: Imaging protocol: XR of the chest. Views: 2 views. COMPARISON: CR XR CHEST PORTABLE 03/24/2021 5:52 AM FINDINGS: Lungs: Increased conspicuity of a pulmonary nodule in the right lung apex. Nodular 13-15 mm opacities projecting over the bilateral lungs may represent new pulmonary nodules. Summation artifact noted in the mid to lower left lung. No acute airspace consolidation. Elevated right hemidiaphragm, unchanged. Pleural spaces: No pleural effusion. No pneumothorax. Heart/Mediastinum: Cardiomediastinal silouhette is within normal limits. Bones/joints: No acute osseous abnormality. Soft tissues: Unremarkable. IMPRESSION: 1. Increased conspicuity of a pulmonary nodule in the right lung apex. 2. Nodular 13-15 mm opacities projecting over the bilateral lungs may represent new pulmonary nodules. Chest CT could better evaluate.
[2021-04-09 18:49] VITALS: BP 140/70; PULSE 103; RESP 18; TEMP 36.9; O2SAT 95; BMI 22.4
--- NOTE | 2021-04-09 18:51 | HMH.EDUTC ---
[facility] [place] Disposition Clinical Impression: COPD exacerbation Left lower lobe pneumonia Qualifiers: Pneumonia type: due to unspecified organism Qualified Code(s): J18.9 - Pneumonia, unspecified organism Disposition: Home, Self-Care Condition on Discharge: Good Instructions: Pneumonia-Adult Additional Instructions: Drink plenty of fluids. Take tylenol or ibuprofen for pain or fever. Take the medications as directed. Follow up with your regular doctor. GO TO THE ER FOR ANY WORSENING SYMPTOMS Stop the steroids that your are on already (medrol dose pack) and start the prednisone that we prescribed. Take the augmentin and azithromycin antibiotics that we sent in to your pharmacy. Prescriptions: Albuterol Sulfate [Albuterol 0.083% 2.5mg/3mL neb] 2.5 mg IH Q6HP PRN #120 ml PRN Reason: Shortness Of Breath Prescription Printed Amoxicillin/Potassium Clav [Augmentin 875-125 Tablet] 1 tab PO Q12H 10 Days #20 tab Prescription Printed Benzonatate [Benzonatate 100mg cap] 100 mg PO TIDP PRN #30 cap PRN Reason: Cough Prescription Printed predniSONE [Deltasone 10mg tablet] 10 mg PO DAILY 9 Days #21 tab Prescription Printed guaiFENesin [Mucinex 600mg tablet] 1 - 2 tab PO BIDP PRN #30 tab PRN Reason: Congestion Prescription Printed Azithromycin [Z-Soham 250mg Tab*] 250 mg PO UD DOSE PK #6 tab Prescription Printed Referrals: Lebron Freeman MD [Primary Care Provider] - Time of Disposition: 20:03 Medical Decision Making - Medical Records Medical records reviewed: No: I reviewed the patient's medical records. - Earl Inquiry Pt receiving controlled substance: No Vital Signs: 04/09/21 18:49 04/09/21 20:26 Temperature 98.4 F 98.4 F Temperature Source Oral Pulse Rate 103 H Pulse Rate [Left] 103 H Respiratory Rate 18 18 Blood Pressure 140/70 Blood Pressure [Right Arm] 140/70 Blood Pressure Mean [Right Arm] 93 02 Sat by Pulse Oximetry 95 Oxygen Delivery Method Nasal Cannula Oxygen Flow Rate (LPM) 2 - Lab Data Lab results reviewed: Yes: I reviewed the patient's lab results. Orders (Tests/Meds): ED MEDICATIONS Discontinued Medications Generic Name Dose Route Start Last Admin Trade Name Freq PRN Reason Stop Dose Admin Ceftriaxone Sodium 1 gm 04/09/21 19:52 04/09/21 20:10 Ceftriaxone 1gm Vial IM 04/09/21 19:53 1 gm ONCE ONE Administration Lidocaine HCl 0 ml 04/09/21 19:52 04/09/21 20:10 Lidocaine 1% 5ml Pf Vial IM 04/09/21 19:53 2 ml ONCE ONE Administration Methylprednisolone Sodium Succinate 62.5 mg 04/09/21 19:52 04/09/21 20:10 Methylprednisolone Sod Succ 125mg Vial IM 04/09/21 19:53 62.5 mg ONCE ONE Administration - Radiology Data #1 Image(s): Chest Image Reviewed: Yes I reviewed the patient's radiology image, Yes I have reviewed radiologist's interpretation Preliminary Findings: Abnormal PROCEDURE INFORMATION: Exam: XR Chest Exam date and time: 04/09/2021 6:46 PM Age: 70 years old Clinical indication: Shortness of breath; Additional info: SOB TECHNIQUE: Imaging protocol: XR of the chest. Views: 2 views. COMPARISON: CR XR CHEST PORTABLE 03/24/2021 5:52 AM FINDINGS: Lungs: Increased conspicuity of a pulmonary nodule in the right lung apex. Nodular 13-15 mm opacities projecting over the bilateral lungs may represent new pulmonary nodules. Summation artifact noted in the mid to lower left lung. No acute airspace consolidation. Elevated right hemidiaphragm, unchanged. Pleural spaces: No pleural effusion. No pneumothorax. Heart/Mediastinum: Cardiomediastinal silouhette is within normal limits. Bones/joints: No acute osseous abnormality. Soft tissues: Unremarkable. IMPRESSION: 1. Increased conspicuity of a pulmonary nodule in the right lung apex. 2. Nodular 13-15 mm opacities projecting over the bilateral lungs may represent new pulmonary nodules. Chest CT could better evaluate. Electr
[2021-04-09 20:26] VITALS: BP 140/70; PULSE 103; RESP 18; TEMP 36.9
== END 2021-04-09 20:27 | disposition home or self-care (01) ==
PROVIDERS: Emergency Provider Nurse Practitioner Family; PCP Emergency Medicine
DX: J44.1 Chronic obstructive pulmonary disease with (acute) exacerbation (principal); J44.0 Chronic obstructive pulmonary disease with (acute) lower respiratory infection; I10 Essential (primary) hypertension; F17.210 Nicotine dependence, cigarettes, uncomplicated
CPT/HCPCS: 71046; 96372; 99202; C9803; G0463; J0696; U0003; U0005

== ENCOUNTER → 2021-04-28 16:00 | Outpatient (CLI) | payer MEDICARE, OTHER, SELFPAY ==
[2021-04-28 19:42] LABS: Amphetamine/Metha Screen,Urine Negative ng/ml (<1000)
[2021-04-28 19:43] LABS: Barbiturates Screen,Urine Negative ng/ml (<200)
[2021-04-28 19:44] LABS: Benzodiazepines Screen,Urine Negative ng/ml (<200)
[2021-04-28 19:45] LABS: Cannabinoid Screen,Urine Negative ng/ml (<50)
[2021-04-28 19:46] LABS: Cocaine Screen,Urine Negative ng/ml (<300); Methadone Screen,Urine Negative ng/ml (<300)
[2021-04-28 19:47] LABS: Opiate Screen,Urine Positive ng/ml (<300); Phencyclidine Screen,Urine Negative ng/ml (<25)
[2021-04-28 19:49] LABS: Anion Gap 12.3 mEq/L (5-15); Blood Urea Nitrogen 14 mg/dl (9-20); Calcium 9.3 mg/dl (8.4-10.2); Carbon Dioxide 33 mmol/L (22.0-30.0); Chloride 100 mmol/L (98-107); Estimated Glomerular Filt Rate 83 ml/min (>60); GFR (African American) 101 ML/MIN (>60); Glucose 117 mg/dl (74-100); Potassium 5.3 mmoL/L (3.5-5.1); Sodium 140 mmol/L (136-145)
== END ==
PROVIDERS: Visit Provider Emergency Medicine
DX: Z00.00 Encounter for general adult medical examination without abnormal findings (principal); Z79.899 Other long term (current) drug therapy
CPT/HCPCS: 80048; 80305

== ENCOUNTER → 2021-06-25 10:09 | Outpatient (CLI) | payer MEDICARE, OTHER, SELFPAY ==
[2021-06-25 14:47] LABS: Phencyclidine Screen,Urine Negative ng/ml (<25)
[2021-06-25 15:11] LABS: Amphetamine/Metha Screen,Urine Negative ng/ml (<1000)
[2021-06-25 15:12] LABS: Barbiturates Screen,Urine Negative ng/ml (<200)
[2021-06-25 15:13] LABS: Benzodiazepines Screen,Urine Negative ng/ml (<200); Cannabinoid Screen,Urine Negative ng/ml (<50)
[2021-06-25 15:14] LABS: Cocaine Screen,Urine Negative ng/ml (<300)
[2021-06-25 15:15] LABS: Methadone Screen,Urine Negative ng/ml (<300); Opiate Screen,Urine Positive ng/ml (<300)
== END ==
PROVIDERS: PCP Emergency Medicine; Visit Provider Emergency Medicine
DX: G89.29 Other chronic pain (principal); M54.9 Dorsalgia, unspecified
CPT/HCPCS: 80305

== ENCOUNTER → 2021-08-25 16:32 | Outpatient (CLI) | payer MEDICARE, OTHER, SELFPAY ==
[2021-08-25 14:24] LABS: Alanine Aminotransferase 16 U/L (12-78); Albumin Level 3.9 g/dl (3.5-5.0); Albumin/Globulin Ratio 1.3 (1.1-1.8); Alkaline Phosphatase 178 U/L (38-126); Anion Gap 11.9 mEq/L (5-15); Aspartate Amino Transferase 30 U/L (17-59); Blood Urea Nitrogen 15 mg/dl (9-20); Calcium 9.1 mg/dl (8.4-10.2); Carbon Dioxide 32 mmol/L (22.0-30.0); Chloride 102 mmol/L (98-107); Estimated Glomerular Filt Rate 83 ml/min (>60); GFR (African American) 101 ML/MIN (>60); Glucose 116 mg/dl (74-100); Potassium 3.9 mmoL/L (3.5-5.1); Sodium 142 mmol/L (136-145); Total Protein,Serum 6.9 g/dl (6.3-8.2)
[2021-08-25 14:26] LABS: Bilirubin,Total < 0.1 mg/dl (0.2-1.3)
[2021-08-25 14:57] LABS: Hemoglobin A1C 6.2 % (4.0-6.0)
[2021-08-25 15:20] LABS: Amphetamine/Metha Screen,Urine Negative ng/ml (<1000); Barbiturates Screen,Urine Negative ng/ml (<200)
[2021-08-25 15:21] LABS: Benzodiazepines Screen,Urine Negative ng/ml (<200)
[2021-08-25 15:22] LABS: Cannabinoid Screen,Urine Negative ng/ml (<50)
[2021-08-25 15:23] LABS: Cocaine Screen,Urine Negative ng/ml (<300)
[2021-08-25 15:24] LABS: Methadone Screen,Urine Negative ng/ml (<300); Opiate Screen,Urine Positive ng/ml (<300)
[2021-08-25 15:25] LABS: Phencyclidine Screen,Urine Negative ng/ml (<25)
== END ==
PROVIDERS: Visit Provider Emergency Medicine
DX: Z79.899 Other long term (current) drug therapy (principal); R73.09 Other abnormal glucose
CPT/HCPCS: 80053; 80305; 83036

== ENCOUNTER 2021-09-06 13:05 | Inpatient (IN) | payer MEDICARE, OTHER, SELFPAY ==
[2021-09-06] VITALS (15 sets, daily range): BP systolic 123–151; BP diastolic 69–81; PULSE 74–98; RESP 4–23; TEMP 36.6–37; O2SAT 73–100; BMI 24.0; BMI 24.1
--- NOTE | 2021-09-06 13:41 | XR_ITS ---
PROCEDURE INFORMATION: Exam: XR Chest Exam date and time: 09/06/2021 1:46 PM Age: 71 years old Clinical indication: Shortness of breath; Additional info: Low o2, lethargy TECHNIQUE: Imaging protocol: Radiologic exam of the chest. Views: 1 view. COMPARISON: CR XR CHEST 2V 04/09/2021 6:48 PM FINDINGS: Lungs: Atelectasis versus infiltrate in the right medial lung base. Atelectasis of the left lateral lung base. Pleural spaces: Unremarkable. No pleural effusion. No pneumothorax. Heart/Mediastinum: Cardiomegaly. Bones/joints: Unremarkable. Other findings: Shallow inspiratory excursion. IMPRESSION: 1. Cardiomegaly. 2. Shallow inspiratory excursion. 3. Atelectasis versus infiltrate in the right medial lung base. 4. Atelectasis of the left lateral lung base.
[2021-09-06 13:58] LABS: Chloride 97 mmol/L (98-107); Potassium 4.7 mmoL/L (3.5-5.1); Sodium 139 mmol/L (136-145)
--- NOTE | 2021-09-06 13:58 | PC.NURSE ---
pt in bed, visitor at bs, waiting on results SHIRA
[2021-09-06 14:00] LABS: Blood Urea Nitrogen 10 mg/dl (9-20); Creatinine Clearance Estimated 80 mL/min (50-200); Estimated Glomerular Filt Rate 74 ml/min (>60); GFR (African American) 89 ML/MIN (>60)
[2021-09-06 14:01] LABS: Alanine Aminotransferase 16 U/L (12-78); Albumin Level 4.5 g/dl (3.5-5.0); Albumin/Globulin Ratio 1.3 (1.1-1.8); Alkaline Phosphatase 147 U/L (38-126); Anion Gap 9.7 mEq/L (5-15); Aspartate Amino Transferase 35 U/L (17-59); Bilirubin,Total 0.5 mg/dl (0.2-1.3); Calcium 9.4 mg/dl (8.4-10.2); Carbon Dioxide 37 mmol/L (22.0-30.0); Globulin 3.6 g/dL (1.3-3.2); Glucose 135 mg/dl (74-100); Total Protein,Serum 8.1 g/dl (6.3-8.2)
--- NOTE | 2021-09-06 14:02 | PC.NURSE ---
Notified RT of ABG order
--- NOTE | 2021-09-06 14:12 | PC.NURSE ---
resp in room at the moment
[2021-09-06 14:19] LABS: Basophils # 0.2 K/mm3 (0-0.2); Basophils % 1.3 % (0.1-2.0); Eosinophils # 0.1 K/mm3 (0.0-0.4); Eosinophils % 0.4 % (0.1-12.0); Hematocrit 57.4 % (42.0-52.0); Hemoglobin 16.5 g/dL (14.1-18.0); Lymphocytes # 2.6 K/mm3 (0.7-4.5); Lymphocytes % 19.4 % (10-50); Mean Corpuscular HGB Conc 28.7 g/dL (31.8-35.4); Mean Corpuscular Hemoglobin 30.1 pg (27.0-31.2); Mean Corpuscular Volume 104.9 fl (80-94); Monocytes # 1.3 K/mm3 (0.1-1.0); Monocytes % 9.2 % (1.7-9.3); Neutrophils # 9.5 K/mm3 (1.8-7.8); Neutrophils % 69.7 % (37.0-80.0); Platelet Count 163 K/mm3 (142-424); Red Blood Count 5.47 M/mm3 (4.60-6.20); Red Cell Distribution Width 12.4 % (11.5-17.5); White Blood Count 13.6 K/mm3 (4.8-10.8)
--- NOTE | 2021-09-06 14:20 | ECG_ITS ---
APPROVED REPORT Exam: Resting ECG HR:79 bpm ECG Measurements Heart Rate 79 AXES QRSd 86 QRS 54 QT 367 T 67 QTc 402 Conclusion ATRIAL FLUTTER/TACHYCARDIA POSSIBLE RIGHT VENTRICULAR CONDUCTION DELAY [RSR (QR) IN V1/V2] SEPTAL MYOCARDIAL INFARCTION , OF INDETERMINATE AGE [40+ ms Q WAVE IN V1/V2] ABNORMAL ECG UNCONFIRMED REPORT Electronically signed by : Micheal Saunders MD 09/08/2021 21:32:27
[2021-09-06 14:21] LABS: ABG HCO3 34.7 mmhg (22.0-26.0); ABG Oxygen Saturation 86 % (90-100); ABG PO2 53.5 mmhg (80-100); ABG TCO2 37.8 mmhg (23-27)
[2021-09-06 14:22] LABS: Allen's Test Patient Unable; Oxygen 4 LNC %; Source Right Radial
--- NOTE | 2021-09-06 14:23 | PC.NURSE ---
Obtained EKG 1424
[2021-09-06 14:24] LABS: ABG PCO2 100.6 mmhg (35.0-45.0); ABG PH 7.16 mmol/L (7.35-7.45)
--- NOTE | 2021-09-06 14:34 | HMH.EDGENADL ---
ED Disposition Clinical Impression: COPD exacerbation Respiratory failure with hypoxia and hypercapnia Qualifiers: Chronicity: acute on chronic Qualified Code(s): J96.21 - Acute and chronic respiratory failure with hypoxia Disposition: Admitted As Inpatient Condition on Discharge: Serious Referrals: Lebron Freeman MD [Primary Care Provider] - - Critical Care Critical Care Time: Yes Attestation: On 09/06/21, the high probability of a clinically significant, sudden or life threatening deterioration of the following system(s) required my full and direct attention, intervention and personal management. The time I documented below is in addition to time spent performing reported procedures but includes the following listed in this critical care notation. Total Critical Care Time: 30 Vital system(s) involved:: Respiratory Failure My critical care processes included: Assessment & monitoring of V/S, Initial and Re-exams, Data Review/Interpretation, Coordinating Care, Medication Orders and management, Documentation Medical Decision Making - Earl Inquiry Pt receiving controlled substance: No Vital Signs: 09/06/21 13:06 Temperature 98.6 F Temperature Source Oral Pulse Rate [Left Radial] 95 H Respiratory Rate 21 Blood Pressure [Right Arm] 132/72 Blood Pressure Mean [Right Arm] 92 Blood Pressure Source [Right Arm] Automatic Cuff Blood Pressure Position [Right Arm] Sitting 02 Sat by Pulse Oximetry 73 L Oxygen Delivery Method Room Air - Lab Data Lab Results 09/06/21 13:28: WBC 13.6 H, RBC 5.47, Hgb 16.5, Hct 57.4 H, MCV 104.9 H, MCH 30.1, MCHC 28.7 L, RDW 12.4, Plt Count 163, MPV 10.0, Neut % (Auto) 69.7, Lymph % (Auto) 19.4, [place] % (Auto) 9.2, Eos % (Auto) 0.4, Baso % (Auto) 1.3, Neut # (Auto) 9.5 H, Lymph # (Auto) 2.6, [place] # (Auto) 1.3 H, Eos # (Auto) 0.1, Baso # (Auto) 0.2 09/06/21 13:28: Sodium 139, Potassium 4.7, Chloride 97 L, Carbon Dioxide 37 H, Anion Gap 9.7, BUN 10, Creatinine 1.00, Estimated Creat Clear 80, Estimated GFR 74, Est GFR ( Amer) 89, Glucose 135 H, Calcium 9.4, Total Bilirubin 0.5, AST 35, ALT 16, Alkaline Phosphatase 147 H, Total Protein 8.1, Albumin 4.5, Globulin 3.6 H, Albumin/Globulin Ratio 1.3 09/06/21 13:28: Lactate 1.0 09/06/21 13:28: Troponin I < 0.01 09/06/21 13:55: Specimen Source Right radial, O2 % 4 lnc, ABG pH 7.16 L*, ABG pCO2 100.6 H, ABG pO2 53.5 L, ABG HCO3 34.7 H, ABG Total CO2 37.8 H, ABG O2 Saturation 86 L*, ABG Base Excess 6.0 H, Aime Test Patient unable Result diagrams: 09/06/21 13:28 09/06/21 13:28 Orders (Tests/Meds): ED MEDICATIONS Generic Name Dose Route Start Last Admin Trade Name Freq PRN Reason Stop Dose Admin Albuterol/Ipratropium 3 ml 09/06/21 20:00 Ipratropium/Albuterol 3 Ml Neb IH 10/06/21 19:59 QIDRT TREMAINE Ceftriaxone Sodium 1 gm/ 50 mls @ 100 mls/hr 09/06/21 14:45 09/06/21 15:22 Sodium Chloride IV 09/20/21 14:44 100 mls/hr Q24H TREMAINE Administration Azithromycin 500 mg/ Sodium 250 mls @ 250 mls/hr 09/06/21 14:45 09/06/21 15:51 Chloride IV 09/20/21 14:44 250 mls/hr Q24H TREMAINE Administration Methylprednisolone Sodium Succinate 80 mg 09/06/21 14:45 09/06/21 15:32 Methylprednisolone Sod Succ 125mg Vial IV 10/06/21 14:44 80 mg Q8H TREMAINE Administration Sodium Chloride 10 ml 09/06/21 13:41 Sodium Chloride 0.9% 10ml Flush Syringe IV 10/06/21 13:40 NEEDED PRN Maintain IV Site ORDERS Category Date Time Status Troponin I Q3H Lab 09/06/21 17:45 Ordered Troponin I Q3H Lab 09/06/21 20:45 Ordered Blood Culture Stat Micro 09/06/21 13:28 Received - Radiology Data #1 Image(s): Chest Image Reviewed: Yes I reviewed the patient's radiology image, Yes I have reviewed radiologist's interpretation PROCEDURE INFORMATION: Exam: XR Chest Exam date and time: 09/06/2021 1:46 PM Age: 71 years old Clinical indication: Shortness of breath; Additional info: Low o2, lethargy TECHNIQU
--- NOTE | 2021-09-06 14:42 | PC.NURSE ---
[facility] [id number]
--- NOTE | 2021-09-06 14:45 | PC.NURSE ---
Joshua called Monica frost
--- NOTE | 2021-09-06 14:48 | HMH.PHAINT ---
MEDICATION RECONCILIATION COMPLETED ON PATIENT USING EXTERNAL FILL HISTORY FROM PHARMACY. -KAMALA CONDE, CORAD
--- NOTE | 2021-09-06 14:57 | PC.NURSE ---
RESP @ BS AND SON
[2021-09-06 15:51] LABS: Troponin I < 0.01 ng/ml (0.00-0.034)
--- NOTE | 2021-09-06 17:09 | PC.NURSE ---
Family come to nurse's station to inform staff that IV in left AC had infiltrated. IV removed and cool compress applied. Going to attempt to regain IV access in the other arm at this time.
--- NOTE | 2021-09-06 17:11 | PC.NURSE ---
RN @ BS inserting new IV after initial one infiltrated
[2021-09-06 18:05] LABS: Coronavirus 19, PCR Not Detected (NotDetected); Influenza A, PCR Not Detected (NotDetected); Influenza B, PCR Not Detected (NotDetected)
[2021-09-06 18:36] LABS: Troponin I < 0.01 ng/ml (0.00-0.034)
--- NOTE | 2021-09-06 18:52 | PC.NURSE ---
Attempted to call report but no answer on nurse's phone.
--- NOTE | 2021-09-06 19:07 | PC.NURSE ---
Gave report to Lorri
--- NOTE | 2021-09-06 19:21 | PC.NURSE ---
PT ARRIVED TO FLOOR VIA STRETHCER FROM ED W/STAFF @ 192
[2021-09-06 21:32] LABS: Troponin I < 0.01 ng/ml (0.00-0.034)
[2021-09-07] VITALS (15 sets, daily range): BP systolic 87–140; BP diastolic 55–87; PULSE 65–114; RESP 16–24; TEMP 36.4–36.9; O2SAT 90–99; BMI 23.9
--- NOTE | 2021-09-07 00:34 | PC.NURSE ---
Lydia canceled 2300 Blood gas wants it done at 0600 after patient being on bipap all night.
--- NOTE | 2021-09-07 03:45 | PC.NURSE ---
Patient admitted this shift. Patient is lethargic well open eyes and mumble when stimulated then quickly goes back to sleep. Patient currently on bipap he has been weaned from 60%- down to 35% with a rate of 20. Daughter in law has been at bedside.
[2021-09-07 07:00] LABS: ABG Base Excess 5.4 mmol/L (-2.4-2.3); ABG HCO3 29.8 mmhg (22.0-26.0); ABG Oxygen Saturation 90 % (90-100); ABG PCO2 46.5 mmhg (35.0-45.0); ABG PH 7.43 mmol/L (7.35-7.45); ABG TCO2 31.3 mmhg (23-27)
[2021-09-07 07:02] LABS: Allen's Test Acceptable; Oxygen 30% %; Pressure Support 10; Vent Rate 20
[2021-09-07 07:03] LABS: Source Left Radial
[2021-09-07 07:08] LABS: ABG PO2 49.6 mmhg (80-100)
--- NOTE | 2021-09-07 09:45 | HMH.PHAVTE ---
[facility] Pharmacy VTE Monitoring - Patient Demographics Admission date: 09/06/21 Report Date: 09/07/21 Time: 09:45 Allergies/Adverse Reactions: Patient Allergies aspirin [From Bernard Aspirin] Allergy (Mild, Verified 06/25/21 09:46) Upset stomach Height: 1.85 m Weight: 81.964 kg Patient Problems: Current Active Problems COPD exacerbation (Acute) Respiratory failure with hypoxia and hypercapnia (Acute) - VTE Risk Labs: VTE Related Lab Results Hgb 16.5 g/dL (14.1-18.0) 09/06/21 13:28 Hct 57.4 % (42.0-52.0) H 09/06/21 13:28 Plt Count 163 K/mm3 (142-424) 09/06/21 13:28 BUN 10 mg/dl (9-20) 09/06/21 13:28 Creatinine 1.00 mg/dl (0.66-1.25) 09/06/21 13:28 Estimated Creat Clear 80 mL/min (50-200) 09/06/21 13:28 Was VTE Risk Assessment Performed: Yes VTE Score: 3 VTE Risk Level: Low Risk - Prophylaxis VTE Prophylaxis Ordered?: Yes Types of VTE Prophylaxis: TEDS Knee High Location of Applied Device: Bilateral Lower Extremeties
--- NOTE | 2021-09-07 10:57 | HMH.HP ---
*Admission Date: 09/06/21 *Chief complaint: sob- altered mental status *History of present illness: pt with dec mental status -hx obtained from patient's [id number]-yr-uvd. He has had increased shortness of breath and confusion since about 2 AM. She says yesterday he seemed perfectly fine. He has done this 3 or 4 times before and has to be admitted to the hospital and be put on BiPAP for respiratory failure. He has COPD and uses oxygen at home as needed. He does not have CPAP or BiPAP at home. She says he has a chronic cough, clear sputum, no recent change. No fever. No chest pain. No vomiting or diarrhea. He does continue to smoke. His [id number] reports that he has a previous history of lung cancer, upper lobe of his right lung has been removed last year and she states that recent scans have shown and be cancer free. Patient is very somnolent. Patient is able to wake up and answer couple of brief questions before falling back to sleep. He is able to tell me that he is not in any pain. [id number] indicates he was not complaining of any pain overnight including chest pain pt was admitted for acute resp faiure [facility] History I have reviewed the patient's past medical history: Yes Medical History: Reports:: Chronic Obstructive Pulmonary Disease (COPD), Hyperlipidemia, Hypertension Denies:: Cancer (Hx of lung CA), Diabetes Mellitus Type 1, Diabetes Mellitus Type 2, MRSA *Have you ever received a pneumonia vaccine?: Yes *Have you received a flu vaccine this season?: Yes Other Medical History: Reports: Arthritis, Fibromyalgia Other Surgeries: Yes: Cancer Surgery, Colonoscopy, Other Amputation: No Fractures: No - *Social History Last grade of school completed: High school graduate Smoking Status: Current every day smoker Tobacco Type: cigarettes # Packs/Day (cigarettes): 1 Alcohol Intake: former Substance Use Type: opiates, former substance user *Occupational Status:: retired Housing: house Household Members: other *Travel in the last 8 weeks: None Family Hx:: Cancer Review of Systems - Review of Systems Review of systems:: unable to obtain Meds Home Medications Medication Instructions Recorded Confirmed Type Clopidogrel Bisulfate [Plavix] 75 mg PO DAILY 03/21/21 09/06/21 History clonazepam 0.5 mg tablet 0.5 mg PO BID #60 tab 08/25/21 09/06/21 Rx gabapentin 800 mg tablet 800 mg PO QID #120 tab 08/25/21 09/06/21 Rx hydrocodone 10 mg-acetaminophen 1 tab PO QID #120 tab 08/25/21 09/06/21 Rx 325 mg tablet Atorvastatin Calcium [Lipitor 80mg 80 mg PO HS 09/06/21 09/06/21 History Tablet*] Fluticasone/Umeclidin/Vilanter 1 puff IH DAILY 09/06/21 09/06/21 History [Trelegy Ellipta] Ipratropium/Albuterol Sulfate 3 ml IH Q4HP PRN 09/06/21 09/06/21 History [Iprat-Albut 0.5-3(2.5) mg/3 ml] Lisinopril/Hydrochlorothiazide 1 each PO DAILY 09/06/21 09/06/21 History [Lisinopril-Hctz 20-12.5 mg Tab] Promethazine HCl [Phenergan 25mg 25 mg PO TIDP PRN 09/06/21 09/06/21 History tab] Ropinirole HCl 2 mg PO HS 09/06/21 09/06/21 History ondansetron HCL [Ondansetron HCl] 8 mg PO Q8HP PRN 09/06/21 09/06/21 History Allergies Allergy/AdvReac Type Severity Reaction Status Date / Time aspirin [From Bernard Aspirin] Allergy Mild Upset Verified 06/25/21 09:46 stomach Exam Vital signs and Labs for Last 24 Hours: Temp Pulse Resp BP Pulse Ox 97.9 F 103 H 18 129/87 96 09/07/21 08:00 09/07/21 10:07 09/07/21 08:00 09/07/21 08:00 09/07/21 10:07 Laboratory Results - last 24 hr 09/06/21 13:28: WBC 13.6 H, RBC 5.47, Hgb 16.5, Hct 57.4 H, MCV 104.9 H, MCH 30.1, MCHC 28.7 L, RDW 12.4, Plt Count 163, MPV 10.0, Neut % (Auto) 69.7, Lymph % (Auto) 19.4, [place] % (Auto) 9.2, Eos % (Auto) 0.4, Baso % (Auto) 1.3, Neut # (Auto) 9.5 H, Lymph # (Auto) 2.6, [place] # (Auto) 1.3 H, Eos # (Auto) 0.1, Baso # (Auto) 0.2 09/06/21 13:28: Sodium 139, Potassium 4.7, Chloride 97 L, Carbon Dioxide 37 H, Anion Gap 9.7, BUN
--- NOTE | 2021-09-07 18:53 | PC.NURSE ---
Addendum entered by Natan Loco RN 09/07/21 18:55: Remains on 2 L NC. Original Note: No acute changes this afternoon. Pt did ambulate to bathroom with assistance to urinate. Remains confused at intervals. Bed alarm in use and daughter in law at bedside. CB in reach. VSS.
[2021-09-08] VITALS (12 sets, daily range): BP systolic 119–139; BP diastolic 52–69; PULSE 73–110; RESP 16–20; TEMP 36.6–37.1; O2SAT 94–98; BMI 24.0
--- NOTE | 2021-09-08 06:24 | PC.NURSE ---
Pt a+o x3. during majority of shift. Pt will get confused at times. Pt has not voiced any complaints to staff. Able to ambulate to BR with standby assist. Tolerating 2 L nc well with sats >94. Call light in reach. Bed alarm on for safety.
--- NOTE | 2021-09-08 09:13 | HMH.ACPN2 ---
Internal Medicine - PN: Subj *Date: 09/09/21 *Time: 06:40 Interval history: doing better - more alert but still sob Exam Vital signs and Labs for Last 24 Hours: Temp Pulse Resp BP Pulse Ox 97.9 F 73 20 127/52 L 97 09/08/21 07:38 09/08/21 07:38 09/08/21 07:38 09/08/21 07:38 09/08/21 07:38 I & O for Last 24 hours: Intake & Output 09/05/21 09/06/21 09/07/21 09/08/21 11:59 11:59 11:59 11:59 Intake Total 1682 / 1682 720 / 720 Output Total 550 / 550 Balance 1132 / 1132 720 / 720 Weight 180 lb 11.2 oz 181 lb - Constitutional no acute distress - *Routine HEENT Exam Head: Present: normocephalic Eye: Present: EOMI, PERRL ENT: Present: mucous membranes dry - *Routine Neck Exam Absent: JVD - *Routine Respiratory Exam Present: decreased breath sounds, prolonged expiratory phase - *Routine Cardiovascular Exam Present: RRR, murmur, S4 - *Routine Abdominal Exam Present: soft - *Routine Extremities Exam Absent: calf tenderness - *Routine Skin Exam Present: intact - *Routine Neurological Exam Present: alert, CN II-XII intact - Routine Psychiatric Exam Present: cooperative Assessment and Plan (1) COPD exacerbation Status: Acute Category: Medical Code(s): J44.1 - Chronic obstructive pulmonary disease with (acute) exacerbation (2) Respiratory failure with hypoxia and hypercapnia Status: Acute Qualifiers: Chronicity: acute on chronic Qualified Code(s): J96.21 - Acute and chronic respiratory failure with hypoxia; J96.22 - Acute and chronic respiratory failure with hypercapnia Category: Medical Code(s): J96.91 - Respiratory failure, unspecified with hypoxia; J96.92 - Respiratory failure, unspecified with hypercapnia (3) Severe sepsis with acute organ dysfunction Status: Acute Category: Medical Code(s): A41.9 - Sepsis, unspecified organism; R65.20 - Severe sepsis without septic shock
--- NOTE | 2021-09-08 09:15 | XR_ITS ---
PROCEDURE INFORMATION: Exam: XR Chest Exam date and time: 09/08/2021 9:43 AM Age: 71 years old Clinical indication: Shortness of breath; Additional info: Sob/copd TECHNIQUE: Imaging protocol: Radiologic exam of the chest. Views: 1 view. COMPARISON: CR XR CHEST PORTABLE 09/06/2021 1:46 PM FINDINGS: Lungs: No focal airspace disease. Pleural spaces: Unremarkable. No pleural effusion. No pneumothorax. Heart/Mediastinum: Cardiomediastinal silhouette is within normal limits. Diaphragm: Elevation of the right hemidiaphragm. Bones/joints: Partially imaged cervical spine fixation hardware. IMPRESSION: No acute cardiopulmonary abnormality.
[2021-09-08 10:25] LABS: Basophils % 0.2 % (0.1-2.0); Eosinophils % 0.3 % (0.1-12.0); Hematocrit 44.2 % (42.0-52.0); Hemoglobin 14.4 g/dL (14.1-18.0); Lymphocytes # 0.9 K/mm3 (0.7-4.5); Lymphocytes % 5.9 % (10-50); Mean Corpuscular HGB Conc 32.4 g/dL (31.8-35.4); Mean Corpuscular Hemoglobin 32.5 pg (27.0-31.2); Mean Corpuscular Volume 100.1 fl (80-94); Mean Platelet Volume 10.3 fl (7.4-10.4); Monocytes # 0.5 K/mm3 (0.1-1.0); Monocytes % 3.2 % (1.7-9.3); Neutrophils # 13.7 K/mm3 (1.8-7.8); Neutrophils % 90.5 % (37.0-80.0); Platelet Count 157 K/mm3 (142-424); Red Blood Count 4.42 M/mm3 (4.60-6.20); Red Cell Distribution Width 12.8 % (11.5-17.5); White Blood Count 15.1 K/mm3 (4.8-10.8)
[2021-09-08 10:31] LABS: MANUAL DIFFERENTIAL MANUAL DIFFERENTIAL (MANUAL DIFF)
[2021-09-08 10:40] LABS: Alanine Aminotransferase 27 U/L (12-78); Albumin Level 3.8 g/dl (3.5-5.0); Albumin/Globulin Ratio 1.3 (1.1-1.8); Alkaline Phosphatase 111 U/L (38-126); Anion Gap 9.7 mEq/L (5-15); Aspartate Amino Transferase 43 U/L (17-59); Blood Urea Nitrogen 27 mg/dl (9-20); Calcium 8.8 mg/dl (8.4-10.2); Carbon Dioxide 31 mmol/L (22.0-30.0); Chloride 101 mmol/L (98-107); Creatinine Clearance Estimated 80 mL/min (50-200); Estimated Glomerular Filt Rate 96 ml/min (>60); GFR (African American) 116 ML/MIN (>60); Glucose 164 mg/dl (74-100); Potassium 3.7 mmoL/L (3.5-5.1); Sodium 138 mmol/L (136-145); Total Protein,Serum 6.8 g/dl (6.3-8.2)
[2021-09-08 10:44] LABS: Bilirubin,Total < 0.1 mg/dl (0.2-1.3)
[2021-09-08 11:20] LABS: Lymphocytes % 9 % (10-50); Macrocytosis 1+; Monocytes % 3 % (2-9); Neutrophils % 88 % (42-76); Total Cells Counted 100
[2021-09-08 11:22] LABS: Ovalocytes 2+; Platelet Estimate Normal
--- NOTE | 2021-09-08 18:11 | PC.NURSE ---
VS stable but patient would switch between 2LNC and room air randomly during day. Patient able to ambulate to bathroom toilet a couple times during shift. Hydrocodone 10mg restarted due to patient complaints of pain in feet. Patient refused for new iv site. No other complaints noted.
[2021-09-09] VITALS (8 sets, daily range): BP systolic 130–153; BP diastolic 64–81; PULSE 77–100; RESP 17–20; TEMP 36.6–36.8; O2SAT 90–97; BMI 24.4
--- NOTE | 2021-09-09 07:22 | PC.NURSE ---
Pt a + o. Pt c/o anxiety/restless leg, asking for 0.5 mg Clonazepam (home med). MD director of transportation restarted, pt states favorable results. Able to ambulate to BR with standby assist. Call light within reach.
[2021-09-09 07:56] LABS: Basophils % 0.1 % (0.1-2.0); Hematocrit 43.9 % (42.0-52.0); Hemoglobin 15.2 g/dL (14.1-18.0); Lymphocytes # 1.6 K/mm3 (0.7-4.5); Lymphocytes % 13.8 % (10-50); Mean Corpuscular HGB Conc 34.6 g/dL (31.8-35.4); Mean Corpuscular Hemoglobin 31.1 pg (27.0-31.2); Mean Platelet Volume 9.3 fl (7.4-10.4); Monocytes % 8.2 % (1.7-9.3); Neutrophils # 9.1 K/mm3 (1.8-7.8); Platelet Count 154 K/mm3 (142-424); Red Blood Count 4.88 M/mm3 (4.60-6.20); Red Cell Distribution Width 12.3 % (11.5-17.5); White Blood Count 11.7 K/mm3 (4.8-10.8)
[2021-09-09 07:57] LABS: Anion Gap 7.4 mEq/L (5-15); Blood Urea Nitrogen 25 mg/dl (9-20); Calcium 8.9 mg/dl (8.4-10.2); Carbon Dioxide 34 mmol/L (22.0-30.0); Chloride 100 mmol/L (98-107); Creatinine Clearance Estimated 81 mL/min (50-200); Estimated Glomerular Filt Rate 96 ml/min (>60); GFR (African American) 116 ML/MIN (>60); Glucose 143 mg/dl (74-100); Potassium 3.4 mmoL/L (3.5-5.1); Sodium 138 mmol/L (136-145)
--- NOTE | 2021-09-09 09:20 | P.PN_ITS ---
Internal Medicine - PN: Subj *Date: 09/09/21 *Time: 09:20 Exam Vital signs and Labs for Last 24 Hours: Temp Pulse Resp BP Pulse Ox 97.9 F 94 H 17 153/81 H 97 09/09/21 07:40 09/09/21 07:40 09/09/21 07:40 09/09/21 07:40 09/09/21 07:40 Laboratory Results - last 24 hr 09/08/21 09:50: WBC 15.1 H, RBC 4.42 L, Hgb 14.4, Hct 44.2, MCV 100.1 H, MCH 32.5 H, MCHC 32.4, RDW 12.8, Plt Count 157, MPV 10.3, Neut % (Auto) 90.5 H, Lymph % (Auto) 5.9 L, [place] % (Auto) 3.2, Eos % (Auto) 0.3, Baso % (Auto) 0.2, Neut # (Auto) 13.7 H, Lymph # (Auto) 0.9, [place] # (Auto) 0.5, Eos # (Auto) 0.0, Baso # (Auto) 0.0, Total Counted 100, Neutrophils % (Manual) 88 H, Lymphocytes % (Manual) 9 L, Monocytes % (Manual) 3, Platelet Estimate Normal, Macrocytosis 1+, Ovalocytes 2+ 09/08/21 09:50: Sodium 138, Potassium 3.7 D, Chloride 101, Carbon Dioxide 31 H, Anion Gap 9.7, BUN 27 H D, Creatinine 0.80, Estimated Creat Clear 80, Estimated GFR 96, Est GFR ( Amer) 116 D, Glucose 164 H, Calcium 8.8, Total Bilirubin < 0.1 L, AST 43, ALT 27 D, Alkaline Phosphatase 111, Total Protein 6.8, Albumin 3.8, Globulin 3.0, Albumin/Globulin Ratio 1.3 09/09/21 06:52: WBC 11.7 H, RBC 4.88, Hgb 15.2, Hct 43.9, MCV 90.0, MCH 31.1, MCHC 34.6, RDW 12.3, Plt Count 154, MPV 9.3, Neut % (Auto) 78.0, Lymph % (Auto) 13.8, [place] % (Auto) 8.2, Eos % (Auto) 0.0 L, Baso % (Auto) 0.1, Neut # (Auto) 9.1 H, Lymph # (Auto) 1.6, [place] # (Auto) 1.0, Eos # (Auto) 0.0, Baso # (Auto) 0.0 09/09/21 06:52: Sodium 138, Potassium 3.4 L, Chloride 100, Carbon Dioxide 34 H, Anion Gap 7.4, BUN 25 H, Creatinine 0.80, Estimated Creat Clear 81, Estimated GFR 96, Est GFR ( Amer) 116, Glucose 143 H, Calcium 8.9 I & O for Last 24 hours: Intake & Output 09/06/21 09/07/21 09/08/21 09/09/21 23:59 23:59 23:59 23:59 Intake Total 2042 / 2042 2635 / 2875 480 / 480 Output Total 550 / 550 Balance 1492 / 1492 2635 / 2875 480 / 480 Weight 181 lb 15.865 oz 180 lb 11.2 oz 180 lb 15.992 oz 184 lb 8 oz Microbiology Reports for the Last 24 Hours: Microbiology 09/06/21 13:28 Blood Blood Culture - Preliminary NO GROWTH AFTER 48 HOURS 09/06/21 13:28 Blood Blood Culture - Preliminary NO GROWTH AFTER 48 HOURS Assessment and Plan (1) COPD exacerbation Status: Acute Category: Medical Code(s): J44.1 - Chronic obstructive pulmonary disease with (acute) exacerbation (2) Respiratory failure with hypoxia and hypercapnia Status: Acute Qualifiers: Chronicity: acute on chronic Qualified Code(s): J96.21 - Acute and chronic respiratory failure with hypoxia; J96.22 - Acute and chronic respiratory failure with hypercapnia Category: Medical Code(s): J96.91 - Respiratory failure, unspecified with hypoxia; J96.92 - Respiratory failure, unspecified with hypercapnia (3) Severe sepsis with acute organ dysfunction Status: Acute Category: Medical Code(s): A41.9 - Sepsis, unspecified organism; R65.20 - Severe sepsis without septic shock
--- NOTE | 2021-09-09 09:23 | HMH.PULMCON ---
*Admission Date: 09/06/21 *Reason for consult:: COPD exacerbation *History of present illness: Mr. Cardenas is a 71-year-old greater than [id number] smoking history, history of COPD, prior admissions for hypercarbic respiratory failure most recent one from March 2021 presented to the hospital after found to be having altered mentation and admission ABG showed hypercarbic respiratory failure and pulmonary was called for further management [facility] History Medical History: Reports:: Chronic Obstructive Pulmonary Disease (COPD), Hyperlipidemia, Hypertension Denies:: Cancer (Hx of lung CA), Diabetes Mellitus Type 1, Diabetes Mellitus Type 2, MRSA *Have you ever received a pneumonia vaccine?: Yes *Have you received a flu vaccine this season?: Yes Other Medical History: Reports: Arthritis, Fibromyalgia Other Surgeries: Yes: Cancer Surgery, Colonoscopy, Other Amputation: No Fractures: No - *Social History Last grade of school completed: High school graduate Smoking Status: Current every day smoker Tobacco Type: cigarettes # Packs/Day (cigarettes): 1 Alcohol Intake: former Substance Use Type: opiates, former substance user *Occupational Status:: retired Housing: house Household Members: other *Travel in the last 8 weeks: None Family Hx:: Cancer ROS - Cons Reports fatigue - Eyes Reports blurry vision - ENT Denies difficulty swallowing - Card Reports shortness of breath, Reports shortness of breath with activity - Resp Respiratory: Denies change in phlegm color, Reports chest congestion, Reports cough, Denies excessive phlegm production, Denies coughing up blood, Reports cough with sputum production - GI Gastrointestingal: Denies: abdominal pain - [place] Musculoskeletal: Reports back pain - Psych Denies thoughts of hurting/killing others, Denies thoughts of hurting/killing yourself Meds Home Medications Medication Instructions Recorded Confirmed Type Clopidogrel Bisulfate [Plavix] 75 mg PO DAILY 03/21/21 09/06/21 History clonazepam 0.5 mg tablet 0.5 mg PO BID #60 tab 08/25/21 09/06/21 Rx gabapentin 800 mg tablet 800 mg PO QID #120 tab 08/25/21 09/06/21 Rx hydrocodone 10 mg-acetaminophen 1 tab PO QID #120 tab 08/25/21 09/06/21 Rx 325 mg tablet Atorvastatin Calcium [Lipitor 80mg 80 mg PO HS 09/06/21 09/06/21 History Tablet*] Fluticasone/Umeclidin/Vilanter 1 puff IH DAILY 09/06/21 09/06/21 History [Trelegy Ellipta] Ipratropium/Albuterol Sulfate 3 ml IH Q4HP PRN 09/06/21 09/06/21 History [Iprat-Albut 0.5-3(2.5) mg/3 ml] Lisinopril/Hydrochlorothiazide 1 each PO DAILY 09/06/21 09/06/21 History [Lisinopril-Hctz 20-12.5 mg Tab] Promethazine HCl [Phenergan 25mg 25 mg PO TIDP PRN 09/06/21 09/06/21 History tab] Ropinirole HCl 2 mg PO HS 09/06/21 09/06/21 History ondansetron HCL [Ondansetron HCl] 8 mg PO Q8HP PRN 09/06/21 09/06/21 History Allergies Allergy/AdvReac Type Severity Reaction Status Date / Time aspirin [From Bernard Aspirin] Allergy Mild Upset Verified 06/25/21 09:46 stomach Exam - Constitutional Constitutional:: Present: no acute distress, comfortable - HENMT Exam HENMT: Present: normocephalic - Eye Exam Eyes:: Present: normal appearance both eyes and related structures - Neck Exam Neck:: Present: normal visual inspection - Respiratory Exam Respiratory:: Present: able to speak in complete sentences, no respiratory distress, wheezing - Cardiovascular Exam Cardiac:: Present: S1, S2 - GI Exam GI:: Present: soft - Skin Exam Skin: Present: warm, no rash - Neurological Exam Neurological: Present: alert, awake - Extremities Exam Extremities: Present: no cyanosis, no clubbing, no edema - Psychiatric Exam Psychiatric: Present: normal affect Internal Medicine - CN: Reslt - Labs CBC & Chem 7: 09/09/21 06:52 09/09/21 06:52 Labs: Short CBC 09/08/21 09/09/21 Range/Units 09:50 06:52 WBC 15.1 H 11.7 H (4.8-10.8) K/mm3 Hgb 14.4 15.2 (1
--- NOTE | 2021-09-09 14:35 | HMH.DCSUM ---
General - General Admission date:: 09/06/21 Discharge date: 09/09/21 HPI HPI: pt with dec mental status -hx obtained from patient's kgxcnlbj-av-ewq. He has had increased shortness of breath and confusion since about 2 AM. She says yesterday he seemed perfectly fine. He has done this 3 or 4 times before and has to be admitted to the hospital and be put on BiPAP for respiratory failure. He has COPD and uses oxygen at home as needed. He does not have CPAP or BiPAP at home. She says he has a chronic cough, clear sputum, no recent change. No fever. No chest pain. No vomiting or diarrhea. He does continue to smoke. His jxrzximf-kh-tka reports that he has a previous history of lung cancer, upper lobe of his right lung has been removed last year and she states that recent scans have shown and be cancer free. Patient is very somnolent. Patient is able to wake up and answer couple of brief questions before falling back to sleep. He is able to tell me that he is not in any pain. Bqokhddq-ju-odv indicates he was not complaining of any pain overnight including chest pain pt was admitted for acute [facility] Course Hospital Course: Pulxiomara has seen and recommends: Patient respiratory significantly improved and was eventually weaned to nasal cannula 2 L. Auscultation minimal expiratory wheeze. Plan: -Continue oxygen therapy to maintain O2 saturation goal of 90 to 95%. -Continue ceftriaxone azithromycin, can be weaned to levofloxacin to complete a total of 5-day course -Continue home inhaler therapy to include Trelegy 100 along with DuoNeb/albuterol every 6 hours on as-needed basis. -Follow pulmonary repeat ABG and will determine the need noninvasive ventilatory therapy for his recurrent hypercarbic respiratory failure. Patient also states that whenever he was out for prolonged hours he will not use his oxygen as he did not have any portable oxygen tanks and that always will lead to COPD exacerbation hospitalization. We will follow the patient in the clinic and will determine his further qualification for [employer]. #Patient does have a history of lung cancer status post resection in June 2020. He continues to follow at [facility] for lung cancer surveillance. Was told that he is not having any recurrence at this point of time. #Thank you for involving pulmonary in this patient care will follow the patient in pulmonary clinic in 2 to 3 weeks with repeat ABG prior to clinic visit. PLAN: Objective Vital signs: Temp Pulse Resp BP Pulse Ox 98.2 F 81 20 130/64 90 L 09/09/21 12:00 09/09/21 13:55 09/09/21 12:00 09/09/21 12:00 09/09/21 12:00 Results Labs on day of discharge: Labs from last 24 hours 09/09/21 09/09/21 06:52 06:52 WBC 11.7 H RBC 4.88 Hgb 15.2 Hct 43.9 MCV 90.0 MCH 31.1 MCHC 34.6 RDW 12.3 Plt Count 154 MPV 9.3 Neut % (Auto) 78.0 Lymph % (Auto) 13.8 [place] % (Auto) 8.2 Eos % (Auto) 0.0 L Baso % (Auto) 0.1 Neut # (Auto) 9.1 H Lymph # (Auto) 1.6 [place] # (Auto) 1.0 Eos # (Auto) 0.0 Baso # (Auto) 0.0 Sodium 138 Potassium 3.4 L Chloride 100 Carbon Dioxide 34 H Anion Gap 7.4 BUN 25 H Creatinine 0.80 Estimated Creat Clear 81 Estimated GFR 96 Est GFR ( Amer) 116 Glucose 143 H Calcium 8.9 Preliminary micro results at discharge 09/06/21 13:28 Blood Culture - Preliminary Blood NO GROWTH AFTER 48 HOURS 09/06/21 13:28 Blood Culture - Preliminary Blood NO GROWTH AFTER 48 HOURS DS: Diagnosis - Discharge Diagnosis (1) COPD exacerbation Status: Acute (2) Respiratory failure with hypoxia and hypercapnia Status: Acute (3) Severe sepsis with acute organ dysfunction Status: Acute Discharge Plan - Patient Discharge Instructions ACTIVITY: Continue current activity DIET: continue same diet Patient Instructions: CHARLES hunt
--- NOTE | 2021-09-10 14:48 | CARE MANAGER ---
Patient is doing well status post discharge. Denies any questions or concerns. Has appointments written down. ERIC Silva
== END 2021-09-09 16:11 | disposition home or self-care (01) | DRG 189 ==
LOC: ER 14:40 → 2ND 16:36
PROVIDERS: Nurse Practitioner Family; Admitting Provider Internal Medicine Adolescent Medicine; Emergency Provider Emergency Medicine; PCP Emergency Medicine; Visit Provider Emergency Medicine
DX: J96.02 Acute respiratory failure with hypercapnia (principal); J44.1 Chronic obstructive pulmonary disease with (acute) exacerbation; J96.01 Acute respiratory failure with hypoxia; Z85.118 Personal history of other malignant neoplasm of bronchus and lung; Z99.81 Dependence on supplemental oxygen; F17.210 Nicotine dependence, cigarettes, uncomplicated; E78.5 Hyperlipidemia, unspecified; I10 Essential (primary) hypertension; M19.90 Unspecified osteoarthritis, unspecified site; M79.7 Fibromyalgia
CPT/HCPCS: 36415; 71045; 80048; 80053; 82803; 83605; 84484; 85007; 85025; 87040; 93005; 94640; 94660; 94761; 99285; C9803; J0456; J0696; U0003; U0005

== ENCOUNTER → 2021-09-23 09:41 | Outpatient (CLI) | payer MEDICARE, OTHER, SELFPAY ==
--- NOTE | 2021-09-23 09:47 | XR_ITS ---
FINAL REPORT CLINICAL HISTORY: lt hip pain COMPARISON: March 21, 2021 FINDINGS: 2 views of the left hip were obtained. There is no acute fracture or dislocation. There are mild degenerative changes. There are no soft tissue abnormalities. IMPRESSION: Mild degenerative change. Reviewed, Interpreted and Dictated by Gordy Shen III, MD Transcribed by Petey Reveles Authenticated and [facility]
--- NOTE | 2021-09-23 09:47 | XR_ITS ---
FINAL REPORT CLINICAL HISTORY: rt hip pain COMPARISON: March 21, 2021 FINDINGS: 2 views of the right hip and an AP pelvis were obtained. There is no acute fracture or dislocation. There is mild degenerative change of both hips. There is postoperative change from fusion of L5-S1. IMPRESSION: Mild degenerative change. Reviewed, Interpreted and Dictated by Gordy Shen III, MD Transcribed by Petey Reveles Authenticated and [facility]
== END ==
PROVIDERS: PCP Emergency Medicine; Visit Provider Orthopaedic Surgery
DX: M25.552 Pain in left hip; M25.551 Pain in right hip
CPT/HCPCS: 73502

== ENCOUNTER → 2021-09-25 11:04 | Outpatient (CLI) | payer MEDICARE, OTHER, SELFPAY ==
[2021-09-25 11:16] LABS: ABG Base Excess 6.6 mmol/L (-2.4-2.3); ABG HCO3 33.4 mmhg (22.0-26.0); ABG Oxygen Saturation 93 % (90-100); ABG PH 7.28 mmol/L (7.35-7.45); ABG PO2 66.7 mmhg (80-100); ABG TCO2 35.6 mmhg (23-27)
[2021-09-25 11:18] LABS: Allen's Test Acceptable; Source Left Radial
[2021-09-25 11:19] LABS: ABG PCO2 72.9 mmhg (35.0-45.0)
== END ==
PROVIDERS: PCP Emergency Medicine; Visit Provider Internal Medicine Pulmonary Disease
DX: J96.92 Respiratory failure, unspecified with hypercapnia (principal)
CPT/HCPCS: 82803

== ENCOUNTER → 2021-10-20 06:10 | Outpatient (CLI) | payer MEDICARE, OTHER, SELFPAY ==
[2021-10-20 14:51] LABS: Amphetamine/Metha Screen,Urine Negative ng/ml (<1000)
[2021-10-20 14:52] LABS: Barbiturates Screen,Urine Negative ng/ml (<200)
[2021-10-20 14:53] LABS: Benzodiazepines Screen,Urine Negative ng/ml (<200); Cannabinoid Screen,Urine Negative ng/ml (<50)
[2021-10-20 14:54] LABS: Cocaine Screen,Urine Negative ng/ml (<300); Methadone Screen,Urine Negative ng/ml (<300)
[2021-10-20 14:55] LABS: Opiate Screen,Urine Positive ng/ml (<300)
[2021-10-20 14:56] LABS: Phencyclidine Screen,Urine Negative ng/ml (<25)
== END ==
PROVIDERS: PCP Emergency Medicine; Visit Provider Emergency Medicine
DX: Z79.899 Other long term (current) drug therapy (principal)
CPT/HCPCS: 80305

== ENCOUNTER → 2021-12-31 09:59 | Outpatient (CLI) | payer MEDICARE, OTHER, SELFPAY ==
--- NOTE | 2021-12-31 10:03 | US_ITS ---
FINAL REPORT CLINICAL HISTORY: CLAUDICATION,SMOKER,HLD,REST PAIN FINDINGS: COMPLETE ANKLE/BRACHIAL INDICES BILATERAL Complete ankle brachial indices were obtained. The right JOSE M is 1.1. The left JOSE M is 1.0. IMPRESSION: ABIs are within normal limits bilaterally. Reviewed, Interpreted and Dictated by Gordy Shen III, MD Transcribed by Katie Louis Authenticated and [facility]
--- NOTE | 2021-12-31 11:17 | MR_ITS ---
FINAL REPORT CLINICAL HISTORY: back pain. history lumbar surgery years ago. unable to walk due to pain. left leg pain for 3 weeks. no injury or trauma. sent over best images. COMPARISON: 12/05/2020 FINDINGS: MRI LUMBAR SPINE W/O CONTRAST Multiplanar MR imaging of the lumbar spine was performed without contrast. On the sagittal T2-weighted images, disc degeneration is seen at multiple levels. There is fusion at L5-S1. The vertebral alignment is normal. There is no evidence of fracture. The conus has an unremarkable appearance. T12-L1: No significant central canal stenosis or neural foraminal narrowing. L1-2: No significant central canal stenosis or neural foraminal narrowing. L2-3: An annular disc bulge is present. There is mild bilateral neural foraminal narrowing. L3-4: There is an annular disc bulge with facet arthropathy. There is moderate bilateral neural foraminal narrowing. There is mild central canal stenosis with an AP diameter of the thecal sac of 7 mm. L4-5: There is an annular disc bulge with facet arthropathy. There is a small central/left paracentral inferiorly extruded disc is again noted which indents the thecal sac. There is L5 nerve root impingement bilaterally. There is severe bilateral neural foraminal narrowing. There is mild central canal stenosis with an AP diameter of the thecal sac of 7 mm. L5-S1: There is fusion at this level and L5 laminectomies. There is mild right neural foraminal narrowing. IMPRESSION: Multilevel disc degeneration and spondylosis with areas of neural foraminal narrowing as above and central canal stenosis at L3-4 and L4-5, overall stable. Reviewed, Interpreted and Dictated by Gordy Shen III, MD Transcribed by Shama Tyson Authenticated and [facility]
== END ==
PROVIDERS: PCP Emergency Medicine; Visit Provider Emergency Medicine
DX: M54.9 Dorsalgia, unspecified; I70.213 Atherosclerosis of native arteries of extremities with intermittent claudication, bilateral legs; M54.50 Low back pain, unspecified
CPT/HCPCS: 72148; 76376; 93923

== ENCOUNTER 2022-01-04 16:28 | Emergency (ER) | payer MEDICARE, OTHER, SELFPAY ==
[2022-01-04 16:45] VITALS: BP 125/69; PULSE 89; RESP 20; TEMP 36.8; O2SAT 88; BMI 24.5
--- NOTE | 2022-01-04 16:54 | XR_ITS ---
PROCEDURE INFORMATION: Exam: XR Chest Exam date and time: 01/04/2022 4:53 PM Age: 71 years old Clinical indication: Prior surgery; Surgery date: 6+ months; Surgery type: Partial right pneumonectomy per patient. Patient HX: Cough, smoker. TECHNIQUE: Imaging protocol: Radiologic exam of the chest. Views: 2 views. COMPARISON: CR XR CHEST PORTABLE 09/08/2021 9:43 AM FINDINGS: Lungs: Unremarkable. No consolidation. Pleural spaces: Unremarkable. No pleural effusion. No pneumothorax. Heart/Mediastinum: Increasing fullness in the right hilum may reflect adenopathy or mass. Diaphragm: Chronic elevation of right hemidiaphragm. Bones/joints: Chronic rotoscoliosis with degenerative spondylosis and facet arthropathy in the spine. Prior anterior cervical spine fusion plate. Osteophytosis and eburnation of the acromioclavicular and glenohumeral articulating surfaces. IMPRESSION: 1. Increasing fullness in the right hilum may reflect adenopathy or mass. Follow-up with computed tomography. 2. Chronic elevation of right hemidiaphragm.
--- NOTE | 2022-01-04 17:13 | EXP.UTC ---
Discharge Plan Disposition Patient Disposition: Home, Self-Care Condition: Good Prescriptions Prescriptions: New azithromycin [azithromycin] 250 mg tablet 250 mg PO DIRECTED Qty: 6 0RF Rx Instructions: Take two (2) tablets on day #1, then one (1) tablet day #2 thru #5 No Action lidocaine 5 % adhesive patch,medicated 1 patch topical DAILY Qty: 30 0RF Rx Instructions: leave on most painful area for up to 12 hrs diclofenac sodium 1 % gel 2 g topical QID Qty: 100 0RF Rx Instructions: apply to single elbow, wrist or hand; for hand includes palm/fingers/back of hand clonazepam 0.5 mg tablet 0.5 mg PO BID Qty: 60 1RF gabapentin 800 mg tablet 800 mg PO QID Qty: 120 1RF oxycodone-acetaminophen [Percocet] 10-325 mg tablet 1 tab PO QID Qty: 120 0RF Trelegy Ellipta 100-62.5-25 mcg blister with device 1 inh IH DAILY 90 Days Qty: 90 3RF albuterol sulfate 90 mcg/actuation HFA aerosol inhaler 2 inh IH QID PRN (Reason: shortness of breath or wheezing) 90 Days Qty: 8.5 2RF ipratropium-albuterol 0.5 mg-3 mg(2.5 mg base)/3 mL solution for nebulization 3 ml IH QID PRN (Reason: shortness of breath or wheezing) 90 Days Qty: 270 3RF promethazine 25 mg tablet See Rx Instructions .ROUTE .COMPLEX Qty: 90 2RF Dose Instruction: TAKE ONE TABLET BY MOUTH 3 TIMES A DAY NEEDED FOR NAUSEA AND VOMITING Rx Instructions: TAKE ONE TABLET BY MOUTH 3 TIMES A DAY NEEDED FOR NAUSEA AND VOMITING ropinirole 2 mg tablet See Rx Instructions .ROUTE .COMPLEX Qty: 30 3RF Dose Instruction: TAKE ONE TABLET BY MOUTH EVERY NIGHT 1 TO 3 HOURS BEFORE BEDTIME Rx Instructions: TAKE ONE TABLET BY MOUTH EVERY NIGHT 1 TO 3 HOURS BEFORE BEDTIME ondansetron HCl 8 mg tablet See Rx Instructions .ROUTE .COMPLEX Qty: 90 0RF Dose Instruction: TAKE ONE TABLET BY MOUTH EVERY 8 HOURS NEEDED FOR NAUSEA AND VOMITING Rx Instructions: TAKE ONE TABLET BY MOUTH EVERY 8 HOURS NEEDED FOR NAUSEA AND VOMITING atorvastatin 80 MG tablet 80 mg PO HS clopidogrel 75 MG tablet 75 mg PO DAILY Referrals Follow up/Referrals: Lebron Freeman MD [Primary Care Provider] - See instructions Activity Restrictions/Add. Instructions Additional Instructions/Restrictions: Start antibiotic today. Be sure to complete entire prescription even if feeling better Tylenol and ibuprofen as needed for pain or fever Humidifier/vaporizer/hot steamy shower Follow-up with primary care tomorrow. Follow-up immediately in the ER of the [facility] for new or worsening symptoms or no noticeable improvement over the next 48-72 hours. Stop smoking follow up with dr caceres this week need a ct of chest r/o mass Clinical Impressions Clinical Impression: Bronchitis Discharge ED Provider: Jennifer ([facility]),[place] [facility] [place] General Stated complaint: drainage, coughing, runny nose Mode of Arrival: Ambulatory Source of Information: Patient Limitations: No Limitations Time Seen by Provider: 01/04/22 17:13 Description of Symptoms (Recalled from Triage Doc. by RN): PATIENT C/O PRODUCTIVE COUGH WITH GREEN SPUTUM AND LOWER THAN NORMAL OXYGEN LEVELS SINCE WEDNESDAY. FAMILY STATES HIS OXYGEN IS SUPPOSED TO STAY 87-92% HEENT Symptoms (Recalled from RN notes): No Resp Symptoms (Recalled from RN notes): Yes Skin Symptoms (Recalled from RN notes): No MS Symptoms (Recalled from RN notes): No Functional Status (Recalled from RN notes): WNL History of Present Illness Provider Complaint: 71 yr old male C/O PRODUCTIVE COUGH WITH GREEN SPUTUM AND LOWER THAN NORMAL OXYGEN LEVELS SINCE WEDNESDAY. FAMILY STATES HIS OXYGEN IS SUPPOSED TO STAY 87-92% Related Data Home Medications Medication Instructions Recorded Confirmed clopidogrel 75 mg tablet 75 mg PO DAILY PLATELET INHIBITOR 03/21/21 12/24/21 atorvastatin 80 mg tablet 80 mg PO HS Cholesterol 09/06/21 12/24/21 Previous Rx's Medication Instruction
[2022-01-04 18:03] VITALS: BP 125/69; PULSE 89; RESP 20; TEMP 36.8; O2SAT 88
== END 2022-01-04 18:06 | disposition home or self-care (01) ==
PROVIDERS: Emergency Provider Nurse Practitioner Family; PCP Emergency Medicine
DX: J40 Bronchitis, not specified as acute or chronic (principal)
CPT/HCPCS: 71046; 99212; G0463

== ENCOUNTER → 2022-02-17 14:00 | Outpatient (CLI) | payer MEDICARE, OTHER, SELFPAY ==
[2022-02-17 18:39] LABS: Amphetamine/Metha Screen,Urine Negative ng/ml (<1000)
[2022-02-17 18:40] LABS: Barbiturates Screen,Urine Negative ng/ml (<200)
[2022-02-17 18:41] LABS: Benzodiazepines Screen,Urine Negative ng/ml (<200); Cannabinoid Screen,Urine Negative ng/ml (<50)
[2022-02-17 18:42] LABS: Cocaine Screen,Urine Negative ng/ml (<300)
[2022-02-17 18:43] LABS: Methadone Screen,Urine Negative ng/ml (<300); Opiate Screen,Urine Positive ng/ml (<300)
[2022-02-17 18:44] LABS: Phencyclidine Screen,Urine Negative ng/ml (<25)
== END ==
PROVIDERS: PCP Emergency Medicine; Visit Provider Emergency Medicine
DX: Z79.899 Other long term (current) drug therapy (principal)
CPT/HCPCS: 80305

== ENCOUNTER 2022-03-23 06:05 | Inpatient (IN) | payer MEDICARE, OTHER, SELFPAY ==
[2022-03-23] VITALS (14 sets, daily range): BP systolic 120–153; BP diastolic 65–79; PULSE 70–93; RESP 17–24; TEMP 36.1–37.3; O2SAT 86–98; BMI 24.4; BMI 23.9
--- NOTE | 2022-03-23 06:18 | ECG_ITS ---
APPROVED REPORT Exam: Resting ECG HR:86 bpm ECG Measurements Heart Rate 86 AXES [place] 153 P 66 QRSd 87 QRS 39 QT 349 T 21 QTc 393 Conclusion SINUS RHYTHM POSSIBLE RIGHT VENTRICULAR CONDUCTION DELAY [RSR (QR) IN V1/V2] BORDERLINE ECG UNCONFIRMED REPORT Electronically signed by : Micheal Saunders MD 03/23/2022 21:41:40
--- NOTE | 2022-03-23 06:18 | XR_ITS ---
PROCEDURE INFORMATION: Exam: XR Chest Exam date and time: 03/23/2022 6:48 AM Age: 71 years old Clinical indication: Cough and shortness of breath; Patient HX: SOA, weakness; Additional info: Sob/cp TECHNIQUE: Imaging protocol: Radiologic exam of the chest. Views: 1 view. COMPARISON: CR XR CHEST 2V 01/04/2022 4:53 PM FINDINGS: Lungs: Unremarkable. No consolidation. Pleural spaces: Unremarkable. No pleural effusion. No pneumothorax. Heart/Mediastinum: Unremarkable. No cardiomegaly. Diaphragm: Right diaphragmatic elevation. Bones/joints: Unremarkable. IMPRESSION: No infiltrates noted.
--- NOTE | 2022-03-23 06:20 | HMH.EDGENADL ---
Discharge Plan Disposition Patient Disposition: Admitted As Inpatient Condition: Fair Prescriptions Prescriptions: No Action lidocaine 5 % adhesive patch,medicated 1 patch topical DAILY Qty: 30 0RF Rx Instructions: leave on most painful area for up to 12 hrs diclofenac sodium 1 % gel 2 g topical QID Qty: 100 0RF Rx Instructions: apply to single elbow, wrist or hand; for hand includes palm/fingers/back of hand ipratropium-albuterol 0.5 mg-3 mg(2.5 mg base)/3 mL solution for nebulization 3 ml IH QID PRN (Reason: shortness of breath or wheezing) 90 Days Qty: 270 3RF clonazepam 0.5 mg tablet 0.5 mg PO BID Qty: 60 1RF gabapentin 800 mg tablet 800 mg PO QID Qty: 120 1RF oxycodone-acetaminophen [Percocet] 10-325 mg tablet 1 tab PO QID Qty: 120 0RF Trelegy Ellipta 100-62.5-25 mcg blister with device 1 inh IH DAILY 90 Days Qty: 90 3RF albuterol sulfate 90 mcg/actuation HFA aerosol inhaler 2 inh IH QID PRN (Reason: shortness of breath or wheezing) 90 Days Qty: 8.5 2RF promethazine 25 mg tablet See Rx Instructions .ROUTE .COMPLEX Qty: 90 2RF Dose Instruction: TAKE ONE TABLET BY MOUTH 3 TIMES A DAY NEEDED FOR NAUSEA AND VOMITING Rx Instructions: TAKE ONE TABLET BY MOUTH 3 TIMES A DAY NEEDED FOR NAUSEA AND VOMITING ondansetron HCl 8 mg tablet See Rx Instructions .ROUTE .COMPLEX Qty: 90 0RF Dose Instruction: TAKE ONE TABLET BY MOUTH EVERY 8 HOURS NEEDED FOR NAUSEA AND VOMITING Rx Instructions: TAKE ONE TABLET BY MOUTH EVERY 8 HOURS NEEDED FOR NAUSEA AND VOMITING ropinirole 2 mg tablet See Rx Instructions .ROUTE .COMPLEX Qty: 30 3RF Dose Instruction: TAKE ONE TABLET BY MOUTH EVERY NIGHT 1 TO 3 HOURS BEFORE BEDTIME Rx Instructions: TAKE ONE TABLET BY MOUTH EVERY NIGHT 1 TO 3 HOURS BEFORE BEDTIME atorvastatin 80 MG tablet 80 mg PO HS clopidogrel 75 MG tablet 75 mg PO DAILY Referrals Follow up/Referrals: Lebron Freeman MD [Primary Care Provider] - See instructions Clinical Impressions Clinical Impression: Respiratory failure with hypoxia and hypercapnia, Acute exacerbation of chronic obstructive pulmonary disease, Acute respiratory acidosis Discharge ED Provider: Enyart,[facility] Adult HPI General Chief complaint: Shortness of Breath/Dyspnea Stated complaint: Low 02 sats Time Seen by Provider: 03/23/22 06:08 History of Present Illness HPI narrative: History limited from patient due to altered mental status obtundation, 71-year-old male with severe COPD usually on trilogy machine at night, prior episodes of respiratory failure with hypercapnia. He is accompanied by ohmyclyc-bt-[id number] who usually monitors his medical treatments, states he had been less active, more confused over the past day. No reports of fever, productive cough, he has not been recently hospitalized has not been on any steroids or antibiotics. He has a nebulizer machine at home for as needed use however he did not use that prior to arrival tonight. He is on oxygen at 2 L/min via nasal cannula at baseline. She states that throughout the evening he had been dipping down into the 70s and had bumped his oxygen up to 4 L/min to prevent hypoxia Related Data Home Medications Medication Instructions Recorded Confirmed clopidogrel 75 mg tablet 75 mg PO DAILY PLATELET INHIBITOR 03/21/21 02/17/22 atorvastatin 80 mg tablet 80 mg PO HS Cholesterol 09/06/21 02/17/22 Previous Rx's Medication Instructions Recorded albuterol sulfate 90 mcg/actuation 2 inh inhalation QID PRN shortness 09/25/21 aerosol inhaler of breath or wheezing 90 days #8.5 grams fluticasone fur. 100 mcg-umeclid 1 inh inhalation DAILY 90 days #90 09/25/21 62.5 mcg-vilant 25 mcg ea inhalat.powder (Trelegy Ellipta) promethazine 25 mg tablet See Rx Instructions .Route 10/23/21 .COMPLEX #90 tabs diclofenac sodium 1 % topical gel 2 g topical QID #100 grams
[2022-03-23 06:27] LABS: ABG Base Excess 3.5 mmol/L (-2.4-2.3); ABG HCO3 31.5 mmhg (22.0-26.0); ABG Oxygen Saturation 91 % (90-100); ABG PH 7.21 mmol/L (7.35-7.45); ABG PO2 63.7 mmhg (80-100); Allen's Test Acceptable; Oxygen 2L %; Source Right Radial
[2022-03-23 06:29] LABS: ABG PCO2 81.4 mmhg (35.0-45.0)
[2022-03-23 06:42] LABS: Coronavirus 19, PCR Not Detected (NotDetected); Influenza A, PCR Not Detected (NotDetected); Influenza B, PCR Not Detected (NotDetected)
[2022-03-23 06:48] LABS: Basophils # 0.1 K/mm3 (0-0.2); Basophils % 0.9 % (0.1-2.0); Eosinophils # 0.2 K/mm3 (0.0-0.4); Eosinophils % 1.5 % (0.1-12.0); Hematocrit 48.7 % (42.0-52.0); Lymphocytes # 3.9 K/mm3 (0.7-4.5); Lymphocytes % 31.2 % (10-50); Mean Corpuscular HGB Conc 30.8 g/dL (31.8-35.4); Mean Corpuscular Hemoglobin 30.9 pg (27.0-31.2); Mean Corpuscular Volume 100.4 fl (80-94); Mean Platelet Volume 9.2 fl (7.4-10.4); Monocytes # 0.8 K/mm3 (0.1-1.0); Monocytes % 6.5 % (1.7-9.3); Neutrophils # 7.4 K/mm3 (1.8-7.8); Platelet Count 180 K/mm3 (142-424); Red Blood Count 4.85 M/mm3 (4.60-6.20); Red Cell Distribution Width 13.5 % (11.5-17.5); White Blood Count 12.4 K/mm3 (4.8-10.8)
[2022-03-23 06:54] LABS: Alanine Aminotransferase 13 U/L (12-78); Albumin Level 4.1 g/dl (3.5-5.0); Albumin/Globulin Ratio 1.2 (1.1-1.8); Alkaline Phosphatase 141 U/L (38-126); Anion Gap 8.4 mEq/L (5-15); Aspartate Amino Transferase 25 U/L (17-59); Bilirubin,Total 0.3 mg/dl (0.2-1.3); Blood Urea Nitrogen 15 mg/dl (9-20); Calcium 8.1 mg/dl (8.4-10.2); Carbon Dioxide 36 mmol/L (22.0-30.0); Chloride 103 mmol/L (98-107); Estimated Glomerular Filt Rate 66 ml/min (>60); GFR (African American) 80 ML/MIN (>60); Globulin 3.3 g/dL (1.3-3.2); Glucose 107 mg/dl (74-100); Lactic Acid 0.8 mmol/L (0.7-2.1); Potassium 4.4 mmoL/L (3.5-5.1); Sodium 143 mmol/L (136-145); Total Protein,Serum 7.4 g/dl (6.3-8.2)
--- NOTE | 2022-03-23 06:56 | PC.NURSE ---
Pt provided with danny
[2022-03-23 07:07] LABS: NT Pro Brain Natriuretic Pep. 336 pg/mL (0-125)
[2022-03-23 07:08] LABS: Troponin I < 0.01 ng/ml (0.00-0.034)
--- NOTE | 2022-03-23 07:09 | PC.NURSE ---
pt is on bipap and tolerating well at this time.
[2022-03-23 07:11] LABS: Procalcitonin 0.058 ng/mL (0.0-2.0)
--- NOTE | 2022-03-23 07:40 | PC.NURSE ---
BED ASSIGNMENT REQUESTED, CHARGE NURSE NOTIFIED, PT WILL REQUIRE STEPDOWN ROOM. CHARGE NURSE WILL CALL BACK WITH BED
[2022-03-23 07:41] LABS: ABG Base Excess 1.8 mmol/L (-2.4-2.3); ABG HCO3 29.4 mmhg (22.0-26.0); ABG Oxygen Saturation 92 % (90-100); ABG PH 7.22 mmol/L (7.35-7.45); ABG PO2 64.2 mmhg (80-100); ABG TCO2 31.7 mmhg (23-27)
--- NOTE | 2022-03-23 07:42 | PC.NURSE ---
updated pt family on pt being admitted. Pt sleeping at this time, family at BS. notified family will start pt on IV antibiotics as ordered per MD when magnesium infusion is finished
--- NOTE | 2022-03-23 07:42 | HMH.PHAINT1 ---
Pharmacy Intervention Comments: MEDICATION RECONCILIATION COMPLETED ON PATIENT USING EXTERNAL FILL HISTORY FROM PHARMACY AND LIST FROM PCP OFFICE. -KAMALA CONDE, CORAD
[2022-03-23 07:43] LABS: Allen's Test Acceptable; Oxygen 35% %; PEEP 18/8; Source Right Radial; Vent Rate 22
[2022-03-23 07:44] LABS: ABG PCO2 72.9 mmhg (35.0-45.0)
--- NOTE | 2022-03-23 07:44 | PC.NURSE ---
RT called with pt second abg results- results given to DU GARCIA
--- NOTE | 2022-03-23 07:46 | PC.NURSE ---
pt bipap setting now at 45% per ER MD
--- NOTE | 2022-03-23 07:50 | PC.NURSE ---
DR. KOLB AGREES TO MED-SURG BED, NOT STEP-DOWN. CHARGE NURSE NOTIFIED. PT TO ROOM 204
--- NOTE | 2022-03-23 08:34 | PC.NURSE ---
waiting alteration specialist back from second floor to give report
--- NOTE | 2022-03-23 08:49 | INFXCTL.NOTE ---
report called to zheng khan on second floor at this time
--- NOTE | 2022-03-23 08:51 | PC.NURSE ---
notified RT ready to transport pt to assigned room on second floor.
--- NOTE | 2022-03-23 09:00 | PC.NURSE ---
arrived to floor by stretcher from ED
[2022-03-23 10:30] LABS: Troponin I < 0.01 ng/ml (0.00-0.034)
[2022-03-23 13:19] LABS: ABG Base Excess 6.4 mmol/L (-2.4-2.3); ABG HCO3 33.3 mmhg (22.0-26.0); ABG Oxygen Saturation 93 % (90-100); ABG PH 7.27 mmol/L (7.35-7.45); ABG PO2 71.2 mmhg (80-100); ABG TCO2 35.6 mmhg (23-27); Oxygen 45 %; Pressure Support 18/10; Vent Rate 22
[2022-03-23 13:20] LABS: Allen's Test Acceptable; Source Right Radial
[2022-03-23 13:21] LABS: ABG PCO2 74.4 mmhg (35.0-45.0)
[2022-03-23 13:42] LABS: Troponin I < 0.01 ng/ml (0.00-0.034)
--- NOTE | 2022-03-23 16:50 | EXP.HP ---
History of Present Illness *Admission Date: 03/23/22 *Reason for visit:: Confusion, shortness of breath [facility] Disclaimer: The information contained in this section may have been updated after the patient was seen, as this information can be updated by other users. Medical History Cervical stenosis of spinal canal COPD (chronic obstructive pulmonary disease) Gastrointestinal ulcer History of stroke Hyperlipidemia Hypertension Lumbar canal stenosis Lung cancer Neuropathy Restless legs syndrome Surgical History History of hand surgery History of lobectomy of lung History of neck surgery Previous back surgery Family History Parkinson disease Social History Smoking Status: Current every day smoker tobacco type: cigarettes packs per day: 1 alcohol intake: former substance use type: former substance user and opiates current occupational status: retired Travel in the last 8 weeks: None household members: other housing: house caffeine: No Review of Systems Review of Systems Review of systems (narrative): 14 point review of systems performed, pertinent positives and negatives as per HPI Meds Home Medications and Allergies Home Medications Medication Instructions Recorded Confirmed Type clopidogrel 75 mg tablet 75 mg PO 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 100 mcg-umeclid 1 inh inhalation DAILY Breathing 03/23/22 03/23/22 History 62.5 mcg-vilant 25 mcg problems inhalat.powder (Trelegy Ellipta) ipratropium 0.5 mg-albuterol 3 mg 3 ml inhalation QIDP PRN shortness 03/23/22 03/23/22 History (2.5 mg base)/3 mL nebulization of breath or wheezing soln ondansetron HCl 8 mg tablet 8 mg PO Q8HP PRN Nausea And 03/23/22 03/23/22 History Vomiting oxycodone-acetaminophen 10 mg-325 1 tab PO QID Pain 03/23/22 03/23/22 History mg tablet (Percocet) promethazine 25 mg tablet 25 mg PO Q8HP PRN Nausea And 03/23/22 03/23/22 History Vomiting ropinirole 2 mg tablet 2 mg PO HS Restless leg 03/23/22 03/23/22 History New Prescriptions to Start Prescriptions: Allergies Allergy/AdvReac Type Severity Reaction Status Date / Time aspirin [From Genesant Aspirin] Allergy Mild Upset Verified 02/17/22 14:10 stomach Exam Data for Last 24 hours Vital signs and Labs for Last 24 Hours: Temp Pulse Resp BP Pulse Ox FiO2 97.9 F 70 20 125/70 97 35 03/23/22 15:58 03/23/22 15:58 03/23/22 15:58 03/23/22 15:58 03/23/22 15:58 03/23/22 06:47 Laboratory Results - last 24 hr 03/23/22 06:23: Specimen Source Right radial, O2 % 2l, ABG pH 7.21 L*, ABG pCO2 81.4 H, ABG pO2 63.7 L, ABG HCO3 31.5 H, ABG Total CO2 34.0 H, ABG O2 Saturation 91, ABG Base Excess 3.5 H, Aime Test Acceptable 03/23/22 06:33: WBC 12.4 H, RBC 4.85, Hgb 15.0, Hct 48.7, MCV 100.4 H, MCH 30.9, MCHC 30.8 L, RDW 13.5, Plt Count 180, MPV 9.2, Neut % (Auto) 60.0, Lymph % (Auto) 31.2, Ralls % (Auto) 6.5, Eos % (Auto) 1.5, Baso % (Auto) 0.9, Neut # (Auto) 7.4, Lymph # (Auto) 3.9, Ralls # (Auto) 0.8, Eos # (Auto) 0.2, Baso # (Auto) 0.1 03/23/22 06:33: Sodium 143, Potassium 4.4, Chloride 103, Carbon Dioxide 36 H, Anion Gap 8.4, BUN 15, Creatinine 1.10, Estimated GFR 66, Est GFR ( Amer) 80, Glucose 107 H, Calcium 8.1 L, Magnesium 2.0, Total Bilirubin 0.3, AST 25, ALT 13, Alkaline Phosphatase 141 H, Troponin I < 0.01, NT-Pro-B Natriuret Pep 3
--- NOTE | 2022-03-23 18:49 | PC.NURSE ---
pt has worn bipap majority of shift, pt is A&Ox4, spoke with Dr. George about pt being able to get something to eat, stated ok to feed pt, pt placed on NC 3L, pt has home trilogy at bedside, Dr. George also stated ok for patient to wear home trilogy tonight
[2022-03-24] VITALS (7 sets, daily range): BP systolic 131–139; BP diastolic 64–79; PULSE 69–94; RESP 16–20; TEMP 36.6–36.9; O2SAT 88–99; BMI 24.0; BMI 23.9
--- NOTE | 2022-03-24 04:42 | PC.NURSE ---
Pt is A&Ox4, Pt also on NC 3L, pt has home trilogy at bedside, patient wore home trilogy some of the night.
[2022-03-24 07:24] LABS: Basophils % 0.3 % (0.1-2.0); Eosinophils # 0.1 K/mm3 (0.0-0.4); Eosinophils % 0.9 % (0.1-12.0); Hematocrit 45.1 % (42.0-52.0); Hemoglobin 14.3 g/dL (14.1-18.0); Lymphocytes # 2.9 K/mm3 (0.7-4.5); Lymphocytes % 22.1 % (10-50); Mean Corpuscular HGB Conc 31.8 g/dL (31.8-35.4); Mean Corpuscular Hemoglobin 31.1 pg (27.0-31.2); Mean Platelet Volume 10.3 fl (7.4-10.4); Monocytes # 1.2 K/mm3 (0.1-1.0); Neutrophils # 8.9 K/mm3 (1.8-7.8); Neutrophils % 67.7 % (37.0-80.0); Platelet Count 151 K/mm3 (142-424); Red Cell Distribution Width 13.4 % (11.5-17.5); White Blood Count 13.1 K/mm3 (4.8-10.8)
[2022-03-24 08:21] LABS: Chloride 107 mmol/L (98-107); Potassium 5.3 mmoL/L (3.5-5.1); Sodium 140 mmol/L (136-145)
[2022-03-24 08:24] LABS: Alanine Aminotransferase 16 U/L (12-78); Albumin Level 3.4 g/dl (3.5-5.0); Alkaline Phosphatase 107 U/L (38-126); Anion Gap 9.3 mEq/L (5-15); Aspartate Amino Transferase 36 U/L (17-59); Bilirubin,Total 0.7 mg/dl (0.2-1.3); Blood Urea Nitrogen 20 mg/dl (9-20); Calcium 8.4 mg/dl (8.4-10.2); Carbon Dioxide 29 mmol/L (22.0-30.0); Creatinine Clearance Estimated 80 mL/min (50-200); Estimated Glomerular Filt Rate 111 ml/min (>60); GFR (African American) 135 ML/MIN (>60); Globulin 3.3 g/dL (1.3-3.2); Glucose 108 mg/dl (74-100); Total Protein,Serum 6.7 g/dl (6.3-8.2)
[2022-03-24 08:25] LABS: Magnesium 2.3 mg/dl (1.6-2.3)
--- NOTE | 2022-03-24 11:39 | EXP.DC.SUM ---
General Admission date:: 03/23/22 Discharge date: 03/24/22 HPI HPI HPI: 71-year-old male with chronic COPD on home trilogy and previous pulmonology evaluations with CT scan of chest greater than 1 year ago presents with acute dyspnea and identified acute hypoxic and hypercapnic respiratory failure. Hospital Course Hospital Course Hospital Course: The patient is admitted to the medical floor with routine pulse oximetry and oxygen supplementation to maintain appropriate oxygen saturations. He required his home usual oxygen requirement of 2 L via nasal cannula to maintain appropriate oxygen saturations. His ED chest x-ray identified no acute disease. He identified improvement the next day and inquired about discharge home. We have recommended compliance with his inhaler therapy, wrote for home oxygen and encouraged home trilogy use routinely. He was also encouraged to follow-up with his shade bander and follow-up appointment has been scheduled. Exam Data for Last 24 hours Vital signs and Labs for Last 24 Hours: Temp Pulse Resp BP Pulse Ox FiO2 98.4 F 78 20 131/79 88 L 35 03/24/22 08:00 03/24/22 11:12 03/24/22 08:00 03/24/22 08:00 03/24/22 10:00 03/23/22 06:47 Laboratory Results - last 24 hr 03/23/22 13:07: Specimen Source Right radial, O2 % 45, ABG pH 7.27 L, ABG pCO2 74.4 H, ABG pO2 71.2 L, ABG HCO3 33.3 H, ABG Total CO2 35.6 H, ABG O2 Saturation 93, ABG Base Excess 6.4 H, Aime Test Acceptable, Vent Rate 22 03/23/22 13:13: Troponin I < 0.01 03/24/22 07:04: WBC 13.1 H, RBC 4.60, Hgb 14.3, Hct 45.1, MCV 98.0 H, MCH 31.1, MCHC 31.8, RDW 13.4, Plt Count 151, MPV 10.3, Neut % (Auto) 67.7, Lymph % (Auto) 22.1, Converse % (Auto) 9.0, Eos % (Auto) 0.9, Baso % (Auto) 0.3, Neut # (Auto) 8.9 H, Lymph # (Auto) 2.9, Converse # (Auto) 1.2 H, Eos # (Auto) 0.1, Baso # (Auto) 0.0 03/24/22 07:04: Sodium 140, Potassium 5.3 H D, Chloride 107, Carbon Dioxide 29, Anion Gap 9.3, BUN 20 D, Creatinine 0.70 D, Estimated Creat Clear 80, Estimated GFR 111, Est GFR ( Amer) 135 D, Glucose 108 H, Calcium 8.4, Magnesium 2.3 D, Total Bilirubin 0.7, AST 36 D, ALT 16, Alkaline Phosphatase 107, Total Protein 6.7, Albumin 3.4 L D, Globulin 3.3 H, Albumin/Globulin Ratio 1.0 L I & O for Last 24 hours: Intake & Output 03/21/22 03/22/22 03/23/22 03/24/22 23:59 23:59 23:59 23:59 Intake Total 306 / 306 500 / 500 Output Total 400 / 400 Balance 305 / 305 100 / 100 Weight 82.185 kg 82.185 kg Constitutional Constitutional: no acute distress *Routine HEENT Exam Head: Present normocephalic Eye: Present EOMI and PERRL ENT: Present mucous membranes moist *Routine Neck Exam Neck: Present supple; Absent lymphadenopathy *Routine Respiratory Exam Respiratory: Present rhonchi, diminished air movement, normal respiratory effort and able to speak in complete sentences *Routine Cardiovascular Exam Cardiovascular: Present RRR *Routine Abdominal Exam Abdominal: Present soft and normoactive bowel sounds; Absent tenderness *Routine Extremities Exam Extremities: Absent cyanosis, clubbing or edema *Routine Skin Exam Skin: Present warm; Absent rash *Routine Neurological Exam Neurological: Present alert and oriented X3 Results Data Completed and Pending Labs on day of discharge: Labs from last 24 hours 03/24/22 03/24/22 03/23/22 07:04 07:04 13:13 WBC 13.1 H RBC 4.60 Hgb 14.3 Hct 45.1 MCV 98.0 H MCH 31.1 MCHC 31.8 RDW 13.4 Plt Count 151 MPV 10.3 Neut % (Auto) 67.7 Lymph % (Auto) 22.1 Converse % (Auto) 9.0 Eos % (Auto) 0.9 Baso % (Auto) 0.3 Neut # (Auto) 8.9 H Lymph # (Auto) 2.9 Converse # (Auto) 1.2 H Eos # (Auto) 0.1 Baso # (Auto) 0.0 Specimen Source O2 % ABG pH ABG pCO2 ABG pO2 ABG HCO3 ABG Total CO2 ABG O2 Saturation ABG Base Excess Aime Test Vent Rate Sodium 140 Potassium 5.3 H D Chloride 107 Carbon Dioxide 29 Ani
--- NOTE | 2022-03-25 12:40 | CARE MANAGER ---
Contacted patient's daughter related to hospital discharge. She states she picked up his medication and he is aware of follow up appointments. ERIC Silva
== END 2022-03-24 11:43 | disposition home or self-care (01) | DRG 189 ==
LOC: ER 07:13 → 2ND 07:44
PROVIDERS: Admitting Provider Internal Medicine Adolescent Medicine; Emergency Provider Emergency Medicine; PCP Emergency Medicine; Visit Provider Family Medicine
DX: J96.01 Acute respiratory failure with hypoxia (principal); J44.1 Chronic obstructive pulmonary disease with (acute) exacerbation; F17.210 Nicotine dependence, cigarettes, uncomplicated; G62.9 Polyneuropathy, unspecified; J96.02 Acute respiratory failure with hypercapnia
CPT/HCPCS: 36415; 71045; 80053; 82803; 83605; 83735; 83880; 84145; 84484; 85025; 87040; 93005; 94640; 94761; 99291; C9803; J0456; J3475; U0003; U0005

== ENCOUNTER → 2022-04-14 23:54 | Outpatient (CLI) | payer MEDICARE, OTHER, SELFPAY ==
[2022-04-15 17:25] LABS: Amphetamine/Metha Screen,Urine Negative ng/ml (<1000); Barbiturates Screen,Urine Negative ng/ml (<200); Benzodiazepines Screen,Urine Negative ng/ml (<200); Cannabinoid Screen,Urine Negative ng/ml (<50); Cocaine Screen,Urine Negative ng/ml (<300); Methadone Screen,Urine Negative ng/ml (<300); Opiate Screen,Urine Positive ng/ml (<300); Phencyclidine Screen,Urine Negative ng/ml (<25)
== END ==
PROVIDERS: PCP Emergency Medicine; Visit Provider Emergency Medicine
DX: Z79.899 Other long term (current) drug therapy (principal)
CPT/HCPCS: 80305

== ENCOUNTER → 2022-12-11 21:19 | Outpatient (CLI) | payer MEDICARE, OTHER, SELFPAY ==
[2022-12-11 16:25] LABS: Amphetamine/Metha Screen,Urine Negative ng/ml (<1000)
[2022-12-11 16:26] LABS: Barbiturates Screen,Urine Negative ng/ml (<200)
[2022-12-11 16:27] LABS: Benzodiazepines Screen,Urine Negative ng/ml (<200); Cannabinoid Screen,Urine Negative ng/ml (<50)
[2022-12-11 16:28] LABS: Cocaine Screen,Urine Negative ng/ml (<300)
[2022-12-11 16:29] LABS: Methadone Screen,Urine Negative ng/ml (<300); Opiate Screen,Urine Positive ng/ml (<300)
[2022-12-11 16:30] LABS: Phencyclidine Screen,Urine Negative ng/ml (<25)
== END ==
PROVIDERS: PCP Emergency Medicine; Visit Provider Emergency Medicine
DX: G89.29 Other chronic pain (principal)
CPT/HCPCS: 80305

== ENCOUNTER 2022-12-16 08:30 | Inpatient (IN) | payer MEDICARE, OTHER, SELFPAY ==
[2022-12-16] VITALS (26 sets, daily range): BP systolic 104–159; BP diastolic 57–84; PULSE 70–131; RESP 13–27; TEMP 36.4–37.3; O2SAT 41–100; BMI 23.1; BMI 24.5
--- NOTE | 2022-12-16 08:32 | PC.NURSE ---
PT PLACED ON NRB AT 15L/NC UPON ARRIVAL. O2 SAT 41% ON ROOM AIR
--- NOTE | 2022-12-16 08:33 | PC.NURSE ---
DR BENITEZ AT BEDSIDE
--- NOTE | 2022-12-16 08:33 | ECG_ITS ---
APPROVED REPORT Exam: Resting ECG HR:131 bpm ECG Measurements Heart Rate 131 AXES LA 173 P 73 QRSd 82 QRS 79 QT 282 T 66 QTc 359 Conclusion SINUS TACHYCARDIA POSSIBLE RIGHT VENTRICULAR CONDUCTION DELAY [RSR (QR) IN V1/V2] SEPTAL MYOCARDIAL INFARCTION , OF INDETERMINATE AGE [40+ ms Q WAVE IN V1/V2] ABNORMAL ECG UNCONFIRMED REPORT Electronically signed by : Micheal Saunders MD 12/19/2022 11:07:59
--- NOTE | 2022-12-16 08:41 | XR_ITS ---
FINAL REPORT CLINICAL HISTORY: dyspnea COMPARISON: 03/23/2022 FINDINGS: SINGLE-VIEW CHEST The heart size is normal. There is elevation of the right hemidiaphragm. There are mild bibasilar opacities, may represent atelectasis versus pneumonia. There are postoperative changes in the lower cervical spine. There is no pneumothorax. IMPRESSION: Bibasilar atelectasis versus pneumonia. Reviewed, Interpreted and Dictated by Gordy Shen III, MD Transcribed by Katie Louis Authenticated and [facility]
[2022-12-16 08:52] LABS: VBG Base Excess 3.4 mmol/L (-2.4-2.3); VBG HCO3 31.8 mmol/L (23-30); VBG Oxygen Saturation 89.9 % (50-70); VBG PCO2 88.5 mmol/L (35-51); VBG PO2 63.7 mmol/L (28-40); VBG Total CO2 34.6 mmol/L (23-27)
--- NOTE | 2022-12-16 08:55 | PC.NURSE ---
0859 CRITICAL VBG RESULTS REPORTED TO DR. BENITEZ, ORDERS FOR RESPIRATORY TO PLACE PT ON BIPAP
[2022-12-16 08:56] LABS: VBG PH 7.17 mmol/L (7.31-7.41)
--- NOTE | 2022-12-16 08:56 | PC.NURSE ---
RESPIRATORY NOTIFIED DR BENITEZ WANTS PT ON BIPAP
[2022-12-16 08:58] LABS: Basophils # 0.1 K/mm3 (0-0.2); Basophils % 0.8 % (0.1-2.0); Eosinophils # 0.2 K/mm3 (0.0-0.4); Eosinophils % 1.1 % (0.1-12.0); Hematocrit 47.1 % (42.0-52.0); Hemoglobin 14.9 g/dL (14.1-18.0); Lymphocytes # 3.7 K/mm3 (0.7-4.5); Lymphocytes % 24.3 % (10-50); Mean Corpuscular HGB Conc 31.7 g/dL (31.8-35.4); Mean Corpuscular Hemoglobin 31.7 pg (27.0-31.2); Mean Corpuscular Volume 100.1 fl (80-94); Mean Platelet Volume 9.4 fl (7.4-10.4); Monocytes % 6.6 % (1.7-9.3); Neutrophils # 10.2 K/mm3 (1.8-7.8); Neutrophils % 67.3 % (37.0-80.0); Platelet Count 145 K/mm3 (142-424); Red Cell Distribution Width 12.7 % (11.5-17.5); White Blood Count 15.1 K/mm3 (4.8-10.8)
--- NOTE | 2022-12-16 08:59 | HMH.EDGENADL ---
Discharge Plan Disposition Patient Disposition: Admitted Chief Complaint: Weakness Prescriptions Prescriptions: No Action clonazepam 1 mg tablet 0.5 mg PO BID 30 Days Qty: 30 1RF gabapentin 800 mg tablet 800 mg PO QID Qty: 120 1RF oxycodone 10 mg tablet 10 mg PO QID Qty: 120 0RF clopidogrel 75 mg tablet See Rx Instructions .ROUTE .COMPLEX Qty: 90 3RF Dose Instruction: TAKE ONE TABLET BY MOUTH ONCE A DAY Rx Instructions: TAKE ONE TABLET BY MOUTH ONCE A DAY atorvastatin 80 mg tablet See Rx Instructions .ROUTE .COMPLEX Qty: 90 0RF Dose Instruction: TAKE ONE TABLET BY MOUTH ONCE A DAY Rx Instructions: TAKE ONE TABLET BY MOUTH ONCE A DAY ondansetron HCl 8 mg tablet See Rx Instructions .ROUTE .COMPLEX Qty: 60 2RF Dose Instruction: TAKE ONE TABLET BY MOUTH EVERY 8 HOURS NEEDED FOR NAUSEA AND VOMITING Rx Instructions: TAKE ONE TABLET BY MOUTH EVERY 8 HOURS NEEDED FOR NAUSEA AND VOMITING ropinirole 2 mg tablet See Rx Instructions .ROUTE .COMPLEX Qty: 30 2RF Dose Instruction: TAKE ONE TABLET BY MOUTH EVERY NIGHT 1 TO 3 HOURS BEFORE BEDTIME Rx Instructions: TAKE ONE TABLET BY MOUTH EVERY NIGHT 1 TO 3 HOURS BEFORE BEDTIME promethazine 25 mg tablet See Rx Instructions .ROUTE .COMPLEX Qty: 90 2RF Dose Instruction: TAKE ONE TABLET BY MOUTH 3 TIMES A DAY NEEDED FOR NAUSEA AND VOMITING Rx Instructions: TAKE ONE TABLET BY MOUTH 3 TIMES A DAY NEEDED FOR NAUSEA AND VOMITING albuterol sulfate 90 mcg/actuation HFA aerosol inhaler 2 inh IH QIDP PRN (Reason: shortness of breath or wheezing) Trelegy Ellipta 100-62.5-25 mcg blister with device 1 inh IH DAILY Referrals Follow up/Referrals: Lebron Freeman MD [Primary Care Provider] - See instructions Clinical Impressions Clinical Impression: Respiratory failure with hypoxia and hypercapnia, Acute exacerbation of chronic obstructive pulmonary disease, Encephalopathy acute Discharge ED Provider: Yoly Miller General Adult HPI General Chief complaint: Weakness Stated complaint: cant remember anything Time Seen by Provider: 12/16/22 08:35 Mode of Arrival: Wheelchair Limitations: No Limitations Description of Symptoms (Recalled from ER Triage Doc. by RN): PT BROUGHT IN BY FAMILY FOR WEAKNESS, LETHARGY AND LOW O2 SAT. FAMILY REPORTS PT HAS HAD COUGH. PT WEARS HOME O2 OCCASIONALLY AT 4L. HX OF CO2 RETENTION History of Present Illness HPI narrative: Patient is a 72-year-old male with a history of lobectomy who is currently in remission from a lung cancer standpoint but has a known diagnosis of COPD presenting today with altered mental status and hypoxia. Patient is encephalopathic and history is not able to be obtained from him however his [id number] is at the bedside and she is the primary historian. She states he has been doing well but she heard him overnight moaning with a check his oxygen saturations and his oxygen saturations at home were in the 60s while he was on oxygen. She states he typically only wears oxygen while he sleeps and occasionally during the day. He has been having a cough recently no fevers or chills that she is aware of. She states when he gets encephalopathic like this he is typically severely hypercapnic and has had to be admitted multiple times for this in the past. Related Data Home Medications Medication Instructions Recorded Confirmed albuterol sulfate 90 mcg/actuation 2 inh inhalation QIDP PRN 03/23/22 12/16/22 aerosol inhaler shortness of breath or wheezing fluticasone fur. 100 mcg-umeclid 1 inh inhalation DAILY Breathing 03/23/22 12/11/22 62.5 mcg-vilant 25 mcg problems inhalat.powder (Trelegy Ellipta) Previous Rx's Medication Instructions Recorded clopidogrel 75 mg tablet See Rx Instructions .Route 04/24/22 .COMPLEX #90 tabs atorvastatin 80 mg tablet See Rx Instructions .Route 10/01/22 .COMPLEX #90 tabs
[2022-12-16 09:00] LABS: MANUAL DIFFERENTIAL MANUAL DIFFERENTIAL (MANUAL DIFF)
--- NOTE | 2022-12-16 09:02 | PC.NURSE ---
RESPIRATORY AT BEDSIDE WITH BIPAP
[2022-12-16 09:03] LABS: Alanine Aminotransferase 23 U/L (12-78); Albumin Level 4.5 g/dl (3.5-5.0); Albumin/Globulin Ratio 1.1 (1.1-1.8); Alkaline Phosphatase 203 U/L (38-126); Anion Gap 9.8 mEq/L (5-15); Aspartate Amino Transferase 36 U/L (17-59); Bilirubin,Total 0.4 mg/dl (0.2-1.3); Blood Urea Nitrogen 21 mg/dl (9-20); Calcium 8.7 mg/dl (8.4-10.2); Carbon Dioxide 39 mmol/L (22.0-30.0); Chloride 96 mmol/L (98-107); Creatinine Clearance Estimated 78 mL/min (50-200); Estimated Glomerular Filt Rate 74 ml/min (>60); GFR (African American) 89 ML/MIN (>60); Glucose 150 mg/dl (74-100); Lactic Acid 1.8 mmol/L (0.7-2.1); Potassium 4.8 mmoL/L (3.5-5.1); Sodium 140 mmol/L (136-145); Total Protein,Serum 8.5 g/dl (6.3-8.2)
--- NOTE | 2022-12-16 09:14 | PC.NURSE ---
XR AT BEDSIDE
[2022-12-16 09:15] LABS: NT Pro Brain Natriuretic Pep. 910 pg/mL (0-125)
[2022-12-16 09:16] LABS: Troponin I < 0.01 ng/ml (0.00-0.034)
[2022-12-16 09:22] LABS: Lymphocytes % 26 % (10-50); Macrocytosis 1+; Monocytes % 3 % (2-9); Neutrophils % 71 % (42-76); Platelet Estimate Slight Decrease; Total Cells Counted 100
--- NOTE | 2022-12-16 09:24 | PC.NURSE ---
DR BENITEZ SPEAKING WITH HOSPITALIST FOR ADMISSION
--- NOTE | 2022-12-16 09:29 | PC.NURSE ---
CARE MANAGEMENT NOTIFIED OF ADMISSION
--- NOTE | 2022-12-16 09:29 | PC.NURSE ---
contacted RT to increased FIO2 on bipap per DR. Miller request.
--- NOTE | 2022-12-16 09:32 | PC.NURSE ---
pt FIO2 on 70% at this time, SaO2 97%
--- NOTE | 2022-12-16 09:41 | HMH.PHAINT1 ---
Pharmacy Intervention Comments: MEDICATION RECONCILIATION COMPLETED ON PATIENT USING EXTERNAL FILL HISTORY FROM PHARMACY AND LIST FROM PCP OFFICE. -KAMALA CONDE, CORAD
--- NOTE | 2022-12-16 09:53 | PC.NURSE ---
NURSE UNABLE TO TAKE REPORT AT THIS TIME
[2022-12-16 10:00] LABS: Coronavirus 19, PCR Not Detected (NotDetected); Influenza A, PCR Not Detected (NotDetected); Influenza B, PCR Not Detected (NotDetected)
--- NOTE | 2022-12-16 10:10 | CT_ITS ---
FINAL REPORT TECHNIQUE: Axial images were obtained from the lung apex to the mid abdomen by computed tomography. Coronal and sagittal reformatted images were obtained. This study was performed with techniques to keep radiation doses as low as reasonably achievable, (ALARA). Individualized dose reduction techniques using automated exposure control or adjustment of mA and/or kV according to the patient''s size were employed. CLINICAL HISTORY: Abnormal Chest Xray COMPARISON: None FINDINGS: There is no axillary adenopathy. There are multiple small nonspecific mediastinal nodes present. Heart size is normal. There is no pericardial or pleural effusion. There is a gallstone present in the gallbladder. Postoperative changes are noted from a right upper lobe resection. Bibasilar atelectasis is present. There is a 10 mm noncalcified nodule in the left upper lobe. IMPRESSION: 10 mm noncalcified nodule left upper lobe, recommend PET CT for further evaluation. Multiple small nonspecific mediastinal nodes. Postoperative changes from right upper lobe resection. Reviewed, Interpreted and Dictated by Gordy Shen III, MD Transcribed by Shannan Robbins Authenticated and [facility]
--- NOTE | 2022-12-16 10:16 | EXP.HP ---
History of Present Illness *Admission Date: 12/16/22 *Reason for visit:: Chief complaint: Shortness of air *History of present illness: This is a 72-year-old male that presents to [facility] emergency department with concerns of shortness of air over the last 48 hours. History is assisted by his eznpapmo-ao-nyw Jeannette. She reports that her 10-year-old son has been interacting with the patient and he recently experienced an upper respiratory illness with fever, nasal congestion and croupy cough that he brought home from school. The patient started experiencing similar symptomatology including nasal congestion, postnasal drip with associated croupy cough not improving with home nebulizers and oxygen. She reports that the patient is noncompliant with his home Trilogy therapy. He started experiencing shortness of air with exertion which has progressed to shortness of air at rest. Jeannette identified some confusion and encephalopathy in the patient last night. She reports the patient has not complained of pain with inspiration or has witnessed syncopal episodes. She reports no associated sputum production or hemoptysis. She reports he has not experienced any chest pain, palpitations or dysphagia. In the ED his presenting oxygen saturations were under 60% on room air. He required a nonrebreather mask to improve his oxygen saturations greater than 90. His VBG identified a PCO2 of 89. His ED chest x-ray identified bibasilar atelectasis. PFSH PFSH Medical History Cervical stenosis of spinal canal Chronic hypoxemic respiratory failure COPD (chronic obstructive pulmonary disease) Gastrointestinal ulcer History of bilevel positive airway pressure (BiPAP) dependence History of lung cancer History of stroke Hyperlipidemia Hypertension Lumbar canal stenosis Lung cancer Neuropathy Restless legs syndrome Smoking greater than 30 pack years Surgical History History of hand surgery History of lobectomy of lung History of neck surgery Previous back surgery Family History Other Parkinson disease Social History (Updated 12/16/22 @ 10:48 by Mayra Beavers RN) Smoking Status: Current every day smoker tobacco type: cigarettes packs per day: 1 alcohol intake: former substance use type: former substance user and opiates current occupational status: retired Travel in the last 8 weeks: None household members: other housing: house caffeine: No Review of Systems Review of Systems Review of systems:: unable to obtain Meds Home Medications and Allergies Home Medications Medication Instructions Recorded Confirmed Type albuterol sulfate 90 mcg/actuation 2 inh inhalation QIDP PRN 03/23/22 12/16/22 History aerosol inhaler shortness of breath or wheezing fluticasone fur. 100 mcg-umeclid 1 inh inhalation DAILY Breathing 03/23/22 12/16/22 History 62.5 mcg-vilant 25 mcg problems inhalat.powder (Trelegy Ellipta) clonazepam 1 mg tablet 0.5 mg PO BID Anxiety 30 days #30 12/11/22 12/16/22 Rx tabs gabapentin 800 mg tablet 800 mg PO QID Pain #120 tabs 12/11/22 12/16/22 Rx atorvastatin 80 mg tablet 80 mg PO DAILY Cholesterol 12/16/22 12/16/22 History clopidogrel 75 mg tablet 75 mg PO DAILY Platelet Inhibitor 12/16/22 12/16/22 History ondansetron HCl 8 mg tablet 8 mg PO TIDP PRN Nausea And 12/16/22 12/16/22 History Vomiting oxycodone 10 mg tablet 10 mg PO QID Pain 12/16/22 12/16/22 History promethazine 25 mg tablet 25 mg PO TIDP PRN Nausea And 12/16/22 12/16/22 History Vomiting ropinirole 2 mg tablet 2 mg PO HS Restless Leg(S) 12/16/22 12/16/22 History New Prescriptions to Start Prescriptions: Allergies Allergy/AdvReac Type Severity Reaction Status Date / Time aspirin [From Bernard Aspirin] Allergy Mild Upset Verified 12/11/22 10:23 stomach Exam Data for Last 24 hours V
--- NOTE | 2022-12-16 10:30 | PC.NURSE ---
PT TO CT
--- NOTE | 2022-12-16 10:31 | PC.NURSE ---
REPORT GIVEN TO ANTHONY CHEEMA RN
--- NOTE | 2022-12-16 10:37 | PC.NURSE ---
arrived to floor by stretcher from ED
--- NOTE | 2022-12-16 10:52 | PC.NURSE ---
pt admitted to 216 from ER via stretcher
[2022-12-16 11:11] LABS: ABG Base Excess 6.2 mmol/L (-2.4-2.3); ABG HCO3 35.2 mmhg (22.0-26.0); ABG Oxygen Saturation 87 % (90-100); ABG PO2 58.8 mmhg (80-100); ABG TCO2 38.4 mmhg (23-27)
[2022-12-16 11:20] LABS: Oxygen 40 %; Pressure Support BIPAP 18/8
[2022-12-16 11:21] LABS: ABG PH 7.15 mmol/L (7.35-7.45); Source Left Brachial; Vent Rate 22
[2022-12-16 11:22] LABS: ABG PCO2 104.5 mmhg (35.0-45.0)
--- NOTE | 2022-12-16 11:28 | PC.NURSE ---
pt only opened eyes to pain and asked pt to answer questions and pt just closed eyes, pt did show a thumb on left hand but that was the only command followed, unable to swallow at this time due to mental status, will attempt to give po medications at a later time if pt rouses more
[2022-12-16 11:50] LABS: POC Glucose,Bedside 173 (70-110)
--- NOTE | 2022-12-16 12:10 | EXP.PULM.CON ---
History of Present Illness History of present illness: Mr. Cardenas 72-year-old female greater than [id number] smoking history COPD, history of lung cancer status post lobectomy prior admissions for hypercarbic respiratory failure supposed to be on Trelegy 100 inhaler along with chronic BiPAP therapy presented to hospital with altered mentation and pulmonary was called for further evaluation and management. Much of the history is obtained from patient family, patient obtunded not responding to verbal stimuli. Barely arousable to painful stimuli [facility] Disclaimer: The information contained in this section may have been updated after the patient was seen, as this information can be updated by other users. Medical History Acute and chronic respiratory failure with hypercapnia Cervical stenosis of spinal canal Chronic hypoxemic respiratory failure COPD (chronic obstructive pulmonary disease) Dyspnea on exertion Gastrointestinal ulcer History of bilevel positive airway pressure (BiPAP) dependence History of lung cancer History of stroke Hyperlipidemia Hypertension Lumbar canal stenosis Lung cancer Neuropathy Pneumonia Restless legs syndrome Smoking greater than 30 pack years Surgical History History of hand surgery History of lobectomy of lung History of neck surgery Previous back surgery Family History Other Parkinson disease Social History (Updated 12/16/22 @ 10:48 by Mayra Beavers RN) Smoking Status: Current every day smoker tobacco type: cigarettes packs per day: 1 alcohol intake: former substance use type: former substance user and opiates current occupational status: retired Travel in the last 8 weeks: None household members: other housing: house caffeine: No Review of Systems Review of Systems Review of systems:: unable to obtain Review of systems (narrative): Patient obtunded not responding to verbal stimuli. Barely arousable to painful stimuli Pulmonology Exam Inpatient Vital signs and Labs for Last 24 Hours: Temp Pulse Resp BP Pulse Ox O2 Del Method FiO2 99.2 F 97 H 18 120/61 95 BiPAP 70 12/16/22 10:55 12/16/22 12:00 12/16/22 12:00 12/16/22 12:00 12/16/22 12:00 12/16/22 12:00 12/16/22 12:00 Laboratory Results - last 24 hr 12/16/22 08:44: VBG pH 7.17 L, VBG pCO2 88.5 H, VBG pO2 63.7 H, VBG HCO3 31.8 H, VBG Total CO2 34.6 H, VBG O2 Saturation 89.9 H, VBG Base Excess 3.4 H 12/16/22 08:45: WBC 15.1 H, RBC 4.70, Hgb 14.9, Hct 47.1, MCV 100.1 H, MCH 31.7 H, MCHC 31.7 L, RDW 12.7, Plt Count 145, MPV 9.4, Neut % (Auto) 67.3, Lymph % (Auto) 24.3, Lane % (Auto) 6.6, Eos % (Auto) 1.1, Baso % (Auto) 0.8, Neut # (Auto) 10.2 H, Lymph # (Auto) 3.7, Lane # (Auto) 1.0, Eos # (Auto) 0.2, Baso # (Auto) 0.1, Total Counted 100, Neutrophils % (Manual) 71, Lymphocytes % (Manual) 26, Monocytes % (Manual) 3, Platelet Estimate Slight decrease, Macrocytosis 1+, Sodium 140, Potassium 4.8, Chloride 96 L, Carbon Dioxide 39 H, Anion Gap 9.8, BUN 21 H, Creatinine 1.00, Estimated Creat Clear 78, Estimated GFR 74, Est GFR ( Amer) 89, Glucose 150 H, Lactate 1.8, Calcium 8.7, Total Bilirubin 0.4, AST 36, ALT 23, Alkaline Phosphatase 203 H, Troponin I < 0.01, NT-Pro-B Natriuret Pep 910 H, Total Protein 8.5 H D, Albumin 4.5, Globulin 4.0 H, Albumin/Globulin Ratio 1.1 12/16/22 09:54: SARS-CoV-2 (PCR) Not detected, Influenza A Untype (PCR) Not detected, Influenza Type B (PCR) Not detected 12/16/22 11:08: Specimen Source Left brachial, O2 % 40, ABG pH 7.15 L*, ABG pCO2 104.5 H, ABG pO2 58.8 L, ABG HCO3 35.2 H, ABG Total CO2 38.4 H, ABG O2 Saturation 87 L*, ABG Base Excess 6.2 H, Aime Test N/a, Vent Rate 22 12/16/22 11:42: POC Glucose 173 H I & O for Labs for Last 24 Hours: Intake & Output 12/13/22 12/14/22 12/15/22 12/16/22 23:59 23:59 23:59 23:59 Weight 186 lb Constitutional
[2022-12-16 12:34] LABS: Troponin I < 0.01 ng/ml (0.00-0.034)
[2022-12-16 13:12] LABS: Procalcitonin 0.229 ng/mL (0.0-2.0)
[2022-12-16 14:15] LABS: ABG Base Excess 4.6 mmol/L (-2.4-2.3); ABG HCO3 33.2 mmhg (22.0-26.0); ABG Oxygen Saturation 97 % (90-100); ABG PO2 99.5 mmhg (80-100); ABG TCO2 36.2 mmhg (23-27)
[2022-12-16 14:18] LABS: Allen's Test YES; Oxygen 40 %; Source Right Radial; Vent Rate 24
[2022-12-16 14:19] LABS: ABG PCO2 95.4 mmhg (35.0-45.0); ABG PH 7.16 mmol/L (7.35-7.45)
[2022-12-16 16:02] LABS: Troponin I < 0.01 ng/ml (0.00-0.034)
[2022-12-16 17:34] LABS: POC Glucose,Bedside 154 (70-110)
--- NOTE | 2022-12-16 17:38 | PC.NURSE ---
pt much more alert, removed mask to see if pt could swallow and pt could, pt took pills without coughing, pt had few bites of sorbet before had to put mask back on (RT Lucille placed bigger mask on pt per pt request as was hurting nose), pt answered questions appropriately, pt's family at bedside, call light within reach, turned on tv for pt per request
[2022-12-16 18:31] LABS: ABG HCO3 29.5 mmhg (22.0-26.0); ABG Oxygen Saturation 96 % (90-100); ABG PH 7.23 mmol/L (7.35-7.45); ABG PO2 83.1 mmhg (80-100); ABG TCO2 31.7 mmhg (23-27)
[2022-12-16 18:34] LABS: Oxygen 40 %
[2022-12-16 18:35] LABS: Allen's Test Acceptable; Source Right Radial; Vent Rate 24
[2022-12-16 18:36] LABS: ABG PCO2 72.1 mmhg (35.0-45.0)
[2022-12-17] VITALS (10 sets, daily range): BP systolic 112–133; BP diastolic 62–75; PULSE 74–103; RESP 16–26; TEMP 36.5–37.1; O2SAT 91–100; BMI 24.9
[2022-12-17 04:01] LABS: ABG Base Excess 4.1 mmol/L (-2.4-2.3); ABG HCO3 28.2 mmhg (22.0-26.0); ABG Oxygen Saturation 98 % (90-100); ABG PCO2 42.1 mmhg (35.0-45.0); ABG PH 7.44 mmol/L (7.35-7.45); ABG PO2 92.9 mmhg (80-100); ABG TCO2 29.5 mmhg (23-27)
[2022-12-17 04:02] LABS: Allen's Test Acceptable; Oxygen 40% %; Source Right Radial
[2022-12-17 06:15] LABS: Basophils % 0.2 % (0.1-2.0); Eosinophils # 0.1 K/mm3 (0.0-0.4); Eosinophils % 0.5 % (0.1-12.0); Hematocrit 37.2 % (42.0-52.0); Lymphocytes # 1.2 K/mm3 (0.7-4.5); Lymphocytes % 12.6 % (10-50); Mean Corpuscular HGB Conc 32.4 g/dL (31.8-35.4); Mean Corpuscular Hemoglobin 31.8 pg (27.0-31.2); Mean Corpuscular Volume 98.2 fl (80-94); Mean Platelet Volume 9.6 fl (7.4-10.4); Monocytes # 0.4 K/mm3 (0.1-1.0); Monocytes % 3.8 % (1.7-9.3); Neutrophils # 7.6 K/mm3 (1.8-7.8); Neutrophils % 82.9 % (37.0-80.0); Platelet Count 119 K/mm3 (142-424); Red Blood Count 3.79 M/mm3 (4.60-6.20); White Blood Count 9.2 K/mm3 (4.8-10.8)
[2022-12-17 06:18] LABS: Chloride 99 mmol/L (98-107)
[2022-12-17 06:19] LABS: Potassium 4.2 mmoL/L (3.5-5.1); Sodium 138 mmol/L (136-145)
[2022-12-17 06:22] LABS: Anion Gap 12.2 mEq/L (5-15); Blood Urea Nitrogen 20 mg/dl (9-20); Calcium 8.1 mg/dl (8.4-10.2); Carbon Dioxide 31 mmol/L (22.0-30.0); Creatinine Clearance Estimated 82 mL/min (50-200); Estimated Glomerular Filt Rate 95 ml/min (>60); GFR (African American) 115 ML/MIN (>60); Glucose 182 mg/dl (74-100); Magnesium 1.9 mg/dl (1.6-2.3)
--- NOTE | 2022-12-17 08:05 | PC.NURSE ---
Morning round on pt complete. whiteboard updated. pt requested to go to bathroom. pt ambulated to bathroom x1 assist. 900 void amount.
--- NOTE | 2022-12-17 10:31 | EXP.PULM.PN ---
Subjective *Date: 12/17/22 *Time: 10:31 Interval history: No acute respiratory vents overnight. Patient weaned to nasal cannula. Awake and alert following commands. Pulmonology Exam Inpatient Vital signs and Labs for Last 24 Hours: Temp Pulse Resp BP Pulse Ox O2 Del Method O2 Flow Rate 97.7 F 100 H 16 133/75 92 L Nasal Cannula 1 12/17/22 07:54 12/17/22 08:00 12/17/22 08:00 12/17/22 08:00 12/17/22 08:00 12/17/22 09:00 12/17/22 09:00 FiO2 40 12/17/22 04:00 Laboratory Results - last 24 hr 12/16/22 09:54: SARS-CoV-2 (PCR) Not detected, Influenza A Untype (PCR) Not detected, Influenza Type B (PCR) Not detected 12/16/22 11:08: Specimen Source Left brachial, O2 % 40, ABG pH 7.15 L*, ABG pCO2 104.5 H, ABG pO2 58.8 L, ABG HCO3 35.2 H, ABG Total CO2 38.4 H, ABG O2 Saturation 87 L*, ABG Base Excess 6.2 H, Aime Test N/a, Vent Rate 22 12/16/22 11:42: POC Glucose 173 H 12/16/22 12:02: Troponin I < 0.01, Procalcitonin 0.229 12/16/22 14:00: Specimen Source Right radial, O2 % 40, ABG pH 7.16 L*, ABG pCO2 95.4 H, ABG pO2 99.5, ABG HCO3 33.2 H, ABG Total CO2 36.2 H, ABG O2 Saturation 97, ABG Base Excess 4.6 H, Aime Test Yes, Vent Rate 24, PEEP Bipap 29/1212/16/22 14:55: Troponin I < 0.01 12/16/22 17:25: POC Glucose 154 H 12/16/22 18:30: Specimen Source Right radial, O2 % 40, ABG pH 7.23 L*, ABG pCO2 72.1 H, ABG pO2 83.1, ABG HCO3 29.5 H, ABG Total CO2 31.7 H, ABG O2 Saturation 96, ABG Base Excess 2.0, Aime Test Acceptable, Vent Rate 24 12/17/22 04:00: Specimen Source Right radial, O2 % 40%, ABG pH 7.44, ABG pCO2 42.1, ABG pO2 92.9, ABG HCO3 28.2 H, ABG Total CO2 29.5 H, ABG O2 Saturation 98, ABG Base Excess 4.1 H, Aime Test Acceptable 12/17/22 05:58: WBC 9.2 D, RBC 3.79 L, Hgb 12.0 L D, Hct 37.2 L, MCV 98.2 H, MCH 31.8 H, MCHC 32.4, RDW 13.0, Plt Count 119 L, MPV 9.6, Neut % (Auto) 82.9 H, Lymph % (Auto) 12.6, [place] % (Auto) 3.8, Eos % (Auto) 0.5, Baso % (Auto) 0.2, Neut # (Auto) 7.6, Lymph # (Auto) 1.2, [place] # (Auto) 0.4, Eos # (Auto) 0.1, Baso # (Auto) 0.0, Sodium 138, Potassium 4.2, Chloride 99, Carbon Dioxide 31 H, Anion Gap 12.2, BUN 20, Creatinine 0.80, Estimated Creat Clear 82, Estimated GFR 95, Est GFR ( Amer) 115 D, Glucose 182 H D, Calcium 8.1 L, Magnesium 1.9 I & O for Labs for Last 24 Hours: Intake & Output 12/14/22 12/15/22 12/16/22 12/17/22 23:59 23:59 23:59 23:59 Intake Total 135 / 2267 2212 / 2212 Output Total 1050 / 1050 900 / 900 Balance -915 / 1217 1312 / 1312 Weight 186 lb 188 lb Constitutional: Present moderate distress Head: Present normocephalic and atraumatic ENT: Present normal exam, normal oropharynx and mucous membranes moist Neck: Present normal inspection and full ROM Respiratory: Present prolonged expiratory phase, respiratory distress, wheezes and able to speak in complete sentences Cardiac: Present S1/S2, Tachycardia and radial pulses present GI: Present soft and distention; Absent tenderness or guarding Skin: Present intact; Absent cyanosis or jaundice Neuro: Present alert, awake and oriented x 3 Extremities: Present normal inspection; Absent clubbing or cyanosis Psychiatric: Present normal affect and cooperative Assessment and Plan *Assessment and plan (1) Acute exacerbation of chronic obstructive pulmonary disease: Status: Acute Category: Medical Code(s): J44.1 - Chronic obstructive pulmonary disease with (acute) exacerbation (2) Acute and chronic respiratory failure with hypercapnia: Status: Acute Category: Medical Code(s): J96.22 - Acute and chronic respiratory failure with hypercapnia (3) History of bilevel positive airway pressure (BiPAP) dependence: Status: Acute Category: Medical (4) Pneumonia: Status: Acute Qualifiers: Pneumonia type: due to unspecified organism Laterality: left Lung location: lower lobe of lung Qualified Code(s): J18.9 - Pneumonia, unspecified organism Category: Medical
--- NOTE | 2022-12-17 11:08 | PC.NURSE ---
COURTESY NOTE: rounded on pt, pt denied use of any assistance at this time. call light within reach.
--- NOTE | 2022-12-17 13:49 | EXP.DC.SUM ---
General Admission date:: 12/16/22 Discharge date: 12/17/22 HPI HPI HPI: This is a 72-year-old male that presents to [facility] emergency department with concerns of shortness of air over the last 48 hours. History is assisted by his sofwqeje-wk-jwd Jeannette. She reports that her 10-year-old son has been interacting with the patient and he recently experienced an upper respiratory illness with fever, nasal congestion and croupy cough that he brought home from school. The patient started experiencing similar symptomatology including nasal congestion, postnasal drip with associated croupy cough not improving with home nebulizers and oxygen. She reports that the patient is noncompliant with his home Trilogy therapy. He started experiencing shortness of air with exertion which has progressed to shortness of air at rest. Jeannette identified some confusion and encephalopathy in the patient last night. She reports the patient has not complained of pain with inspiration or has witnessed syncopal episodes. She reports no associated sputum production or hemoptysis. She reports he has not experienced any chest pain, palpitations or dysphagia. In the ED his presenting oxygen saturations were under 60% on room air. He required a nonrebreather mask to improve his oxygen saturations greater than 90. His VBG identified a PCO2 of 89. His ED chest x-ray identified bibasilar atelectasis. Hospital Course Hospital Course Hospital Course: This is a 72-year-old male that presents to [facility] emergency department with concerns of shortness of air. His past medical history is significant for COPD on home oxygen 2 L, history of right upper lobe lung cancer s/p resection 2019, chronic benzodiazepine therapy, chronic opioid therapy, degenerative disc disease of the cervical and lumbar spine. His ED evaluation was significant for hypercapnia. Problems addressed as follows: Sepsis, POA Tachycardia, tachypnea, leukocytoses, source on imaging Blood cultures no growth to date IV fluid resuscitation with normal lactic acid Trending labs and inflammatory markers Respiratory PCR negative for COVID and influenza IV antibiotic therapy IV antibiotics transitioned to Levaquin 750 mg p.o. daily x5 days on discharge Pneumonia Pulse oximetry monitoring Oxygen therapy ED chest x-ray reviewed with bibasilar atelectasis CT chest with 10 mm noncalcified nodule JOSE MANUEL and mediastinal lymph nodes Trending blood cultures with no growth to date Sputum cultures requested MRSA screen ED respiratory PCR negative for COVID and influenza Trending labs and inflammatory markers IV antibiotics transitioned to Levaquin 750 mg p.o. daily x5 days on discharge Acute on chronic hypoxic, hypercapnic respiratory failure Pulse oximetry monitoring Oxygen therapy to maintain appropriate oxygen saturations NIPPV therapy compliance encouraged Pulmonology consult reviewed ED VBG reviewed Noncompliance with home trilogy noted Savita/Сергей inhalation therapy IV steroids transitioned to prednisone 40 mg p.o. daily x5 days ICS/LABA/LAMA inhalation therapy Goals of care conversation History lung cancer CT chest with 10 mm noncalcified nodule JOSE MANUEL and mediastinal lymph nodes Pulmonology following Degenerative disc disease cervical spine Degenerative disc disease lumbar spine Chronic opioid therapy Chronic benzodiazepine therapy Tobacco dependence Tobacco cessation education Nicotine replacement therapy Complicates all aspects of care The patient identified improvement and inquired about discharge home. I spent 35 minutes in [id number] time with the patient and nursing staff concerning the discharge process. We discussed the admitting diagnoses and hospital course. We discussed identified improvement and the patient's desire to be discharged. We reviewed inpatient studies and imaging. The patient voiced understanding on the importance of follow-up with his primary care p
--- NOTE | 2022-12-17 14:10 | PC.NURSE ---
removed IV from Left AC
--- NOTE | 2022-12-17 14:18 | HMH.PHAINT1 ---
Pharmacy Intervention Comments: DISCHARGE MEDICATION COUNSELING PROVIDED. DISCUSSED THE FOLLOWING NEW MEDICATIONS: -DUONEBS (FOR SHORTNESS OF BREATH, EVERY 6 HOURS, MAY CAUSE JITTERY FEELING, ANXIOUSNESS) -LEVAQUIN (DAILY, TAKE WITH FOOD, N/V/D POSSIBLE, RARE RISK OF TENDON RUPTURE SO RISE SLOWLY) -PREDNISONE (DAILY, TAKE WITH FOOD/AT BREAKFAST, UPSET STOMACH, INSOMNIA POSSIBLE) PATIENT VERBALIZED NO QUESTIONS AT THIS TIME.
[2022-12-22 11:48] LABS: MRSA DNA PCR Negative
--- NOTE | 2022-12-22 13:01 | CARE MANAGER ---
Attempted to contact patient related to hospital discharge. Left VM message. ERIC Silva
== END 2022-12-17 14:25 | disposition home or self-care (01) | DRG 871 ==
LOC: ER 09:33 → 2ND 09:36
PROVIDERS: Internal Medicine Pulmonary Disease; Nurse Practitioner Family; Admitting Provider Family Medicine; Emergency Provider Student in an Organized Health Care Education/Training Program; PCP Emergency Medicine; Visit Provider Family Medicine
DX: A41.9 Sepsis, unspecified organism (principal); J96.21 Acute and chronic respiratory failure with hypoxia; J96.22 Acute and chronic respiratory failure with hypercapnia; J44.1 Chronic obstructive pulmonary disease with (acute) exacerbation; G93.40 Encephalopathy, unspecified; Z85.118 Personal history of other malignant neoplasm of bronchus and lung; Z86.73 Personal history of transient ischemic attack (TIA), and cerebral infarction without residual deficits; F17.210 Nicotine dependence, cigarettes, uncomplicated; G62.9 Polyneuropathy, unspecified; Z99.81 Dependence on supplemental oxygen; Z91.199 Patient's noncompliance with other medical treatment and regimen due to unspecified reason; E78.5 Hyperlipidemia, unspecified; Z20.822 Contact with and (suspected) exposure to COVID-19; M50.30 Other cervical disc degeneration, unspecified cervical region; M51.36 Other intervertebral disc degeneration, lumbar region; Z71.6 Tobacco abuse counseling
CPT/HCPCS: 36415; 71045; 71250; 80048; 80053; 82803; 82962; 83605; 83735; 83880; 84145; 84484; 85007; 85025; 87040; 87636; 87641; 93005; 94640; 94660; 99291; J0456; J0696; J3475

== ENCOUNTER 2022-12-27 10:59 | Emergency (ER) | payer MEDICARE, OTHER, SELFPAY ==
[2022-12-27] VITALS (7 sets, daily range): BP systolic 110–144; BP diastolic 63–82; PULSE 66–122; RESP 17–24; TEMP 36.9–38.2; O2SAT 93–99; BMI 23.7
--- NOTE | 2022-12-27 11:03 | ECG_ITS ---
APPROVED REPORT Exam: Resting ECG HR:116 bpm ECG Measurements Heart Rate 116 AXES DE 126 P 78 QRSd 79 QRS 55 QT 320 T 71 QTc 389 Conclusion SINUS TACHYCARDIA POSSIBLE RIGHT VENTRICULAR CONDUCTION DELAY [RSR (QR) IN V1/V2] ABNORMAL RHYTHM ECG UNCONFIRMED REPORT Electronically signed by : Micheal Saunders MD 12/28/2022 08:31:28
--- NOTE | 2022-12-27 11:07 | XR_ITS ---
PROCEDURE INFORMATION: Exam: XR Chest Exam date and time: 12/27/2022 11:27 AM Age: 72 years old Clinical indication: Fever; Additional info: Fever, copd exacerbation TECHNIQUE: Imaging protocol: Radiologic exam of the chest. Views: 2 views. COMPARISON: CT CHEST WO CON 12/16/2022 10:33 AM FINDINGS: Lungs: Unremarkable. No consolidation. Pleural spaces: Unremarkable. No pleural effusion. No pneumothorax. Heart/Mediastinum: There is calcified right hilar lymphadenopathy. Diaphragm: There is elevation the right hemidiaphragm. Bones/joints: There is a levoconvex curvature of the thoracic spine. Cervical fixation hardware is incidentally noted. IMPRESSION: No acute cardiopulmonary disease.
--- NOTE | 2022-12-27 11:17 | PC.NURSE ---
Dr. Ortiz at BS for pt eval
[2022-12-27 11:22] LABS: Coronavirus 19, PCR Not Detected (NotDetected); Influenza A, PCR Not Detected (NotDetected); Influenza B, PCR Not Detected (NotDetected)
--- NOTE | 2022-12-27 11:30 | HMH.EDGENADL ---
Discharge Plan Disposition Patient Disposition: Home, Self-Care Prescriptions Prescriptions: New prednisone 20 mg tablet 40 mg PO BID 5 Days Qty: 20 0RF amoxicillin-pot clavulanate 875-125 mg tablet 1 tab PO BID 7 Days Qty: 14 0RF No Action clonazepam 1 mg tablet 0.5 mg PO BID 30 Days Qty: 30 1RF gabapentin 800 mg tablet 800 mg PO QID Qty: 120 1RF albuterol sulfate 90 mcg/actuation HFA aerosol inhaler 2 inh IH QIDP PRN (Reason: shortness of breath or wheezing) Trelegy Ellipta 100-62.5-25 mcg blister with device 1 inh IH DAILY atorvastatin 80 mg tablet 80 mg PO DAILY ondansetron HCl 8 mg tablet 8 mg PO TIDP PRN (Reason: Nausea And Vomiting) clopidogrel 75 mg tablet 75 mg PO DAILY ropinirole 2 mg tablet 2 mg PO HS promethazine 25 mg tablet 25 mg PO TIDP PRN (Reason: Nausea And Vomiting) oxycodone 10 mg tablet 10 mg PO QID ipratropium-albuterol 0.5 mg-3 mg(2.5 mg base)/3 mL Solution For Nebulization 3 ml inhalation Q6RT Qty: 320 0RF levofloxacin 750 mg tablet 750 mg PO DAILY Qty: 5 0RF prednisone 20 mg tablet 40 mg PO DAILY Qty: 10 0RF Referrals Follow up/Referrals: Lebron Freeman MD [Primary Care Provider] - See instructions Activity Restrictions/Add. Instructions Additional Instructions/Restrictions: Call your family doctor to establish care for this visit to the emergency department and schedule follow-up within 48 hours to ensure improvement. If you have any worsening of your condition or any other concerning signs or symptoms, return to the emergency department or your primary care doctor for further evaluation. Prednisone for 5 days, antibiotic as prescribed for 7 days. Take Tylenol 1000 mg every 6 hours (4 times daily) and ibuprofen 400 mg every 6 hours (4 times daily) as needed with food and water to prevent GI upset and kidney damage. Clinical Impressions Clinical Impression: Acute exacerbation of chronic obstructive pulmonary disease Discharge ED Provider: Juan Manuel Ortiz General Adult HPI General Chief complaint: Shortness of Breath/Dyspnea Stated complaint: SOA, Fever 101 Time Seen by Provider: 12/27/22 11:02 Mode of Arrival: Wheelchair Source of Information: Patient Limitations: No Limitations Description of Symptoms (Recalled from ER Triage Doc. by RN): Pt family reports fever x2 days. Family reports pt was lethargic yesteray, having periods of confusion. Pt reports dry cough. Pt home O2 dependent at 3-3.5 L per NC at home. Pt wears bipap at night. Pt family concerned about CO2 being elevated. History of Present Illness HPI narrative: 72-year-old male with history of hypertension on nightly CPAP and nasal cannula 3.5 L daily, still smoking, CAD, hypertension, hyperlipidemia presenting with fever and intermittent confusion. Daughter states that this started about 2 days prior to arrival with a fever up to 103 degrees. Intermittently confused. Patient coughing, but no vomiting, neurologic deficits otherwise, chest pain. Patient states has been feeling more short of breath, but denies any other symptoms at this time. Came to the emergency department today because did not have oxygen with him while out and about and was feeling short of breath in the setting of the fevers. Related Data Home Medications Medication Instructions Recorded Confirmed albuterol sulfate 90 mcg/actuation 2 inh inhalation QIDP PRN 03/23/22 12/16/22 aerosol inhaler shortness of breath or wheezing fluticasone fur. 100 mcg-umeclid 1 inh inhalation DAILY Breathing 03/23/22 12/16/22 62.5 mcg-vilant 25 mcg problems inhalat.powder (Trelegy Ellipta) atorvastatin 80 mg tablet 80 mg PO DAILY Cholesterol 12/16/22 12/16/22 clopidogrel 75 mg tablet 75 mg PO DAILY Platelet Inhibitor 12/16/22 12/16/22 ondansetron HCl 8 mg tablet 8 mg PO TIDP PRN Nausea And 12/16/22 12/16/22 Vomiting oxycodone 10 mg tablet 10 mg PO QID Pain 12/16/2212/06
--- NOTE | 2022-12-27 11:35 | PC.NURSE ---
Pt gone to RAD via wheelchair
[2022-12-27 11:38] LABS: Chloride 94 mmol/L (98-107); Potassium 4.6 mmoL/L (3.5-5.1); Sodium 137 mmol/L (136-145)
[2022-12-27 11:40] LABS: Alanine Aminotransferase 21 U/L (12-78); Alkaline Phosphatase 118 U/L (38-126); Aspartate Amino Transferase 36 U/L (17-59); Bilirubin,Total 0.5 mg/dl (0.2-1.3); Blood Urea Nitrogen 16 mg/dl (9-20); Creatinine Clearance Estimated 78 mL/min (50-200); Estimated Glomerular Filt Rate 74 ml/min (>60); GFR (African American) 89 ML/MIN (>60)
[2022-12-27 11:41] LABS: Albumin Level 3.9 g/dl (3.5-5.0); Albumin/Globulin Ratio 1.1 (1.1-1.8); Calcium 8.3 mg/dl (8.4-10.2); Globulin 3.4 g/dL (1.3-3.2); Glucose 150 mg/dl (74-100); Total Protein,Serum 7.3 g/dl (6.3-8.2)
--- NOTE | 2022-12-27 11:41 | PC.NURSE ---
pt return from radiology
[2022-12-27 11:48] LABS: Anion Gap 10.6 mEq/L (5-15); Carbon Dioxide 37 mmol/L (22.0-30.0); Lactic Acid 1.1 mmol/L (0.7-2.1)
[2022-12-27 11:53] LABS: Troponin I 0.05 ng/ml (0.00-0.034)
[2022-12-27 12:00] LABS: Basophils # 0.1 K/mm3 (0-0.2); Basophils % 0.4 % (0.1-2.0); Eosinophils # 0.4 K/mm3 (0.0-0.4); Hematocrit 43.5 % (42.0-52.0); Hemoglobin 13.8 g/dL (14.1-18.0); Lymphocytes # 2.1 K/mm3 (0.7-4.5); Lymphocytes % 15.2 % (10-50); Mean Corpuscular HGB Conc 31.7 g/dL (31.8-35.4); Mean Corpuscular Hemoglobin 31.8 pg (27.0-31.2); Mean Corpuscular Volume 100.5 fl (80-94); Mean Platelet Volume 8.8 fl (7.4-10.4); Monocytes # 1.3 K/mm3 (0.1-1.0); Monocytes % 9.3 % (1.7-9.3); Neutrophils # 9.8 K/mm3 (1.8-7.8); Platelet Count 153 K/mm3 (142-424); Red Blood Count 4.33 M/mm3 (4.60-6.20); Red Cell Distribution Width 13.4 % (11.5-17.5); White Blood Count 13.6 K/mm3 (4.8-10.8)
[2022-12-27 12:50] LABS: Microscopic, Urine URINE MICROSCOPIC (MICROSCOPIC)
[2022-12-27 12:51] LABS: Appearance,Urine CLEAR (Clear); Bilirubin,Urine Negative (Negative); Blood, Urine Negative (Negative); Color,Urine YELLOW (Yellow); Glucose,Urine (UA) Negative (Negative); Ketones,Urine Negative (Negative); Leukocyte Esterase,Urine Negative (Negative); Nitrate,Urine Negative (Negative); PH,Urine 6.5 (5.0-8.5); Protein,Urine TRACE (Negative); Urobilinogen,Urine 0.2 EU/dl (0.2)
[2022-12-27 13:04] LABS: Bacteria,Urine Trace /lpf; RBC,Urine Occasional #/hpf (0-3); Squamous Epithelial Cell,Urine Occasional #/hpf (0-5); WBC,Urine Occasional #/hpf (0-3)
--- NOTE | 2022-12-27 13:55 | PC.NURSE ---
Rounded on pt. Pt sitting up in chair beside bed. Family remains at BS. No needs voiced at this time.
[2022-12-27 14:09] LABS: Troponin I 0.05 ng/ml (0.00-0.034)
== END 2022-12-27 14:25 | disposition home or self-care (01) ==
PROVIDERS: Emergency Provider Emergency Medicine; PCP Emergency Medicine
DX: J44.1 Chronic obstructive pulmonary disease with (acute) exacerbation (principal); F17.210 Nicotine dependence, cigarettes, uncomplicated; R00.0 Tachycardia, unspecified; R50.9 Fever, unspecified; I25.10 Atherosclerotic heart disease of native coronary artery without angina pectoris; I11.9 Hypertensive heart disease without heart failure; E78.5 Hyperlipidemia, unspecified; R41.0 Disorientation, unspecified; Z86.73 Personal history of transient ischemic attack (TIA), and cerebral infarction without residual deficits; Z99.89 Dependence on other enabling machines and devices
CPT/HCPCS: 71046; 80053; 81001; 83605; 84484; 85025; 87040; 87636; 93005; 96361; 96374; 96375; 99285; J0131

== ENCOUNTER → 2022-12-30 13:12 | Outpatient (CLI) | payer MEDICARE, OTHER, SELFPAY ==
[2022-12-30 13:49] LABS: ABG Base Excess 12.7 mmol/L (-2.4-2.3); ABG HCO3 38.1 mmhg (22.0-26.0); ABG Oxygen Saturation 88 % (90-100); ABG PH 7.36 mmol/L (7.35-7.45); ABG TCO2 40.2 mmhg (23-27)
[2022-12-30 13:52] LABS: Allen's Test Acceptable; Oxygen RA %; Source Right Radial
[2022-12-30 13:53] LABS: ABG PCO2 68.5 mmhg (35.0-45.0); ABG PO2 46.7 mmhg (80-100)
== END ==
PROVIDERS: PCP Emergency Medicine; Visit Provider Internal Medicine Pulmonary Disease
DX: J96.11 Chronic respiratory failure with hypoxia (principal); J96.12 Chronic respiratory failure with hypercapnia
CPT/HCPCS: 82803

== ENCOUNTER 2023-03-23 07:28 | Emergency (ER) | payer MEDICARE, OTHER, SELFPAY ==
[2023-03-23 07:29] VITALS: BP 181/94; PULSE 112; RESP 22; TEMP 36.6; O2SAT 98; BMI 20.3
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
[2023-03-23 07:53] VITALS: BMI 20.3
[2023-03-23 08:00] VITALS: BP 180/102; PULSE 97; O2SAT 97
[2023-03-23] MEDS: TET/DIPHTH/PERT-ADULT 0.5ML SYRINGE 0.5 ML IM (08:08)
[2023-03-23] MEDS: HYDROCODONE/APAP 5/325 MG TABLET 1 TAB PO (08:22)
[2023-03-23 08:30] VITALS: BP 162/94; PULSE 82; O2SAT 97
[2023-03-23 09:00] VITALS: BP 125/102; PULSE 91; O2SAT 94
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
[2023-03-23 09:20] VITALS: BP 152/80; PULSE 77; RESP 21; TEMP 36.6; O2SAT 93
== END 2023-03-23 09:21 | disposition left against medical advice (07) ==
PROVIDERS: Emergency Provider Student in an Organized Health Care Education/Training Program; PCP Physician Assistant
DX: T20.10XA Burn of first degree of head, face, and neck, unspecified site, initial encounter (principal); X04.XXXA Exposure to ignition of highly flammable material, initial encounter; F17.210 Nicotine dependence, cigarettes, uncomplicated; J44.9 Chronic obstructive pulmonary disease, unspecified; I10 Essential (primary) hypertension; E78.5 Hyperlipidemia, unspecified; Z23 Encounter for immunization
CPT/HCPCS: 90471; 90715; 99284

== ENCOUNTER 2023-06-25 20:29 | Inpatient (IN) | payer MEDICARE, OTHER, SELFPAY ==
[2023-06-25] VITALS (8 sets, daily range): BP systolic 103–130; BP diastolic 57–68; PULSE 86–108; RESP 18–21; TEMP 37.1–37.3; O2SAT 82–100; BMI 24.4
--- NOTE | 2023-06-25 20:25 | ECG_ITS ---
APPROVED REPORT Exam: Resting ECG HR:107 bpm ECG Measurements Heart Rate 107 AXES QRSd 70 QRS 62 QT 310 T 57 QTc 373 Conclusion Sinus tachycardia No obvious ischemic change, largely nondiagnostic EKG given wandering baseline Electronically signed by : BALJINDER ALONSO, 06/26/2023 22:39:23
--- NOTE | 2023-06-25 20:31 | XR_ITS ---
PROCEDURE INFORMATION: Exam: XR Chest Exam date and time: 06/25/2023 9:01 PM Age: 73 years old Clinical indication: Shortness of breath; Additional info: Copd exacerbation, lll pna concern TECHNIQUE: Imaging protocol: Radiologic exam of the chest. Views: 1 view. COMPARISON: CR XR CHEST 2V 12/27/2022 11:27 AM FINDINGS: Lungs: Left basilar opacities partially silhouette the diaphragm are favored to represent combination of atelectasis/pleural effusion/consolidation. Pleural spaces: See Lungs finding. Heart/Mediastinum: Unremarkable. No cardiomegaly. Bones/joints: Unremarkable. IMPRESSION: Left basilar opacities partially silhouette the diaphragm are favored to represent combination of atelectasis/pleural effusion/consolidation.
[2023-06-25 20:42] LABS: Basophils # 0.4 K/mm3 (0-0.2); Basophils % 2.8 % (0.1-2.0); Eosinophils # 0.1 K/mm3 (0.0-0.4); Eosinophils % 0.7 % (0.1-12.0); Hematocrit 50.2 % (42.0-52.0); Lymphocytes # 0.7 K/mm3 (0.7-4.5); Lymphocytes % 5.3 % (10-50); Mean Corpuscular HGB Conc 29.8 g/dL (31.8-35.4); Mean Corpuscular Volume 103.9 fl (80-94); Mean Platelet Volume 9.8 fl (7.4-10.4); Monocytes # 0.9 K/mm3 (0.1-1.0); Monocytes % 6.5 % (1.7-9.3); Neutrophils # 11.3 K/mm3 (1.8-7.8); Neutrophils % 84.6 % (37.0-80.0); Platelet Count 151 K/mm3 (142-424); Red Blood Count 4.83 M/mm3 (4.60-6.20); Red Cell Distribution Width 13.6 % (11.5-17.5); White Blood Count 13.3 K/mm3 (4.8-10.8)
[2023-06-25 20:55] LABS: Lactic Acid 2.9 mmol/L (0.7-2.1)
--- NOTE | 2023-06-25 20:56 | ED_ITS ---
Discharge Plan Disposition Patient Disposition: Home, Self-Care Chief Complaint: Shortness of Breath/Dyspnea Clinical Impressions Clinical Impression: Acute exacerbation of chronic obstructive airways disease, Acute respiratory failure with hypoxia and hypercarbia Discharge ED Provider: Juan Manuel Ortiz General Chief Complaint: Shortness of Breath/Dyspnea Stated Complaint: soa Time Seen by Provider: 06/25/23 20:31 Mode of Arrival: Wheelchair Source of Information: Relative Limitations: Altered Mental Status Description of Symptoms (Recalled from ER Triage Doc. by RN): Pt to ED with [id number] who states pt has been more confused than normal today, and has had low O2 levels today. Family states she had pt on O2 at home and it wasn't helping. Upon arrival, pt is unable to follow commands, RA sat 81%. Family states that pt gets like this when his CO2 levels are high, and pt has hx of hypercapnia, needing bi pap. family also reports pt had bacteremia recently and just finished abx this week. History of Present Illness HPI narrative: History obtained with patient's family because patient altered. Patient has history of hypertension, hyperlipidemia, COPD on home oxygen and still smoking, lung cancer status post right upper lobectomy presenting with altered mental status. Per family, patient has had worsening swelling in his legs over the past couple of days. Has also began becoming more altered throughout the day. In the mornings, is fine after using Trelegy unit at home. Throughout the day, becomes more more obtunded. At night, generally obtained until he put the Trelegy back on when he wakes up normal the next day. They check his oxygen periodically throughout the day, today was first time it was low. Brought him into the emergency department for further evaluation. Patient unable to participate in history. Please note that above description of symptoms, in this electronic medical record under categorization of recalled from ER triage doctor by RN are reflective of an initial nursing assessment, however, is not reflective of my full history and physical exam that was personally taken and clarified. Consequentially, this preceding description of symptoms, which may include the patient's categorized chief complaint in the EMR, do not reflect my personal clinical impression, and the ultimate description of history of present illness and patient stated complaints should be deferred to this section of the note. Unless stated otherwise or congruent with this section of the note, additional signs, symptoms, or incongruence should be interpreted as inaccurate with my clinical impression. Related Data Previous Rx's Medication Instructions Recorded albuterol sulfate 90 mcg/actuation 2 inh inhalation QIDP PRN 02/08/23 aerosol inhaler shortness of breath or wheezing #8.5 grams betamethasone, augmented 0.05 % 1 applic topical BID #50 grams 02/08/23 topical gel clopidogrel 75 mg tablet 75 mg PO DAILY Platelet Inhibitor 02/08/23 #60 tabs fluticasone fur. 100 mcg-umeclid 1 inh inhalation DAILY Breathing 02/08/23 62.5 mcg-vilant 25 mcg problems #60 ea inhalat.powder (Trelegy Ellipta) ropinirole 2 mg tablet 2 mg PO HS Restless Leg(S) #60 tabs 02/08/23 ondansetron HCl 8 mg tablet See Rx Instructions .Route 04/09/23 .COMPLEX #60 tabs promethazine 25 mg tablet See Rx Instructions .Route 04/09/23 .COMPLEX #90 tabs promethazine-DM 6.25 mg-15 mg/5 mL 5 ml PO Q4-6H PRN cough #473 mL 05/25/23 oral syrup clonazepam 1 mg tablet 0.5 mg (1/2 x 1 mg) PO BID Anxiety 06/07/23 30 days #30 tabs gabapentin 800 mg tablet 800 mg PO QID PRN neuropathy #120 06/07/23 tabs oxycodone 10 mg tablet 10 mg PO Q6H PRN pain 30 days #120 06/07/23 tabs oxycodone 10 mg tablet 10 mg PO Q6H PRN pain 30 days #120 06/07/23 tabs atorvastatin 80 mg tablet See Rx Instructions .Route 06/08/23 .COMPLEX #30 tabs Allergies Allergy/AdvReac Type Severity Reaction Status Date / Time aspirin AdvReac Intermediate Gastrointestinal Verified 06/07/23 10:36 Upset amoxicillin [From Augmentin] AdvReac Verified 06/07/23 10:36 clavulanic acid AdvReac Verified 06/07/23 10:36 [From Augmentin] [facility] Disclaimer: The information contained in this section may have been updated after the patient was seen, as this information can be updated by other users. Medical History Chronic respiratory failure with hypoxia and hypercapnia Patient has significant respiratory failure and quite frankly might even benefit from palliative care and hospice. History of bilevel positive airway pressure (BiPAP) dependence History of lung cancer Smoking greater than 30 pack years Strongly encouraged to quit smoking. Chronic hypoxemic respiratory failure History of stroke Gastrointestinal ulcer Hypertension Hyperlipidemia Lung cancer Restless legs syndrome Patient will continue the ropinirole. COPD (chronic obstructive pulmonary disease) Lumbar canal stenosis Cervical stenosis of spinal canal Neuropathy F/U with Dr Roblero to discuss decreased dose - states he has been on QID dosing as long as he can remember and is afraid that his pain will be unmanageable if dose is changed Surgical History History of hand surgery History of neck surgery Previous back surgery History of lobectomy of lung Family History Other Parkinson disease Social History Smoking Status: Current every day smoker tobacco type: cigarettes packs per day: 1 alcohol intake: former substance use type: former substance user and opiates current occupational status: retired Travel in the last 8 weeks: None household members: other housing: house caffeine: No ROS Obtained: Yes All systems reviewed & no additional complaints except as documented Physical Exam General General appearance: lethargic and other (Intermittently following central commands) Neck Neck exam: Present trachea midline Chest Chest inspection: Present normal inspection and symmetric chest wall rise Respiratory Respiratory exam: Present wheezes (Diffuse, worse in the left lower lobe with decreased breath sounds), accessory muscle use and prolonged expiratory phase; Absent respiratory distress or stridor Cardiovascular Cardiovascular exam: Present normal rhythm and tachycardia Extremities Exam Extremities exam: Present edema Neurological Exam Neurological exam: Present alert, oriented X3 and CN II-XII intact Skin Skin exam: Present warm and dry; Absent cyanosis, diaphoresis or pallor HEART Score HEART Score HEART Score assessment performed?: Yes HEART Score: 5 Critical Care Critical Care Time Critical Care Time: Yes (resp) Attestation: On 06/25/23, the high probability of a clinically significant, sudden or life threatening deterioration of the following system(s) required my full and direct attention, intervention and personal management. The time I documented below is in addition to time spent performing reported procedures but includes the following listed in this critical care notation. Total Time Total Critical Care Time: 45 Medical Decision Making Medical Records Medical records reviewed: Yes I reviewed the patient's medical records. Earl Inquiry Pt receiving controlled substance: No Earl was queried for this patient: No Vital Signs Vital Signs: 06/25/23 20:31 06/25/23 21:00 Temperature 99.2 F Temperature Source Oral Pulse Rate 92 H Pulse Rate [Apical] 108 H Respiratory Rate 18 18 Blood Pressure 103/57 L Blood Pressure [Right Arm] 129/66 Blood Pressure Mean [Right Arm] 87 Blood Pressure Source [Right Arm] Automatic Cuff Blood Pressure Position [Right Arm] Sitting 02 Sat by Pulse Oximetry 82 L 98 Oxygen Delivery Method BiPAP Lab Data Labs: Lab Results 06/25/23 20:32: Specimen Source Left radial, O2 % 80, ABG pH 7.31 L, ABG pCO2 79.6 H, ABG pO2 50.1 L, ABG HCO3 39.5 H, ABG Total CO2 41.9 H, ABG O2 Saturation 86 L*, ABG Base Excess 13.2 H, Aime Test Acceptable, Vent Rate 18 06/25/23 20:35: WBC 13.3 H, RBC 4.83, Hgb 15.0, Hct 50.2, MCV 103.9 H, MCH 31.0, MCHC 29.8 L, RDW 13.6, Plt Count 151, MPV 9.8, Neut % (Auto) 84.6 H, Lymph % (Auto) 5.3 L, [place] % (Auto) 6.5, Eos % (Auto) 0.7, Baso % (Auto) 2.8 H, Neut # (Auto) 11.3 H, Lymph # (Auto) 0.7, [place] # (Auto) 0.9, Eos # (Auto) 0.1, Baso # (Auto) 0.4 H, Lactate 2.9 H 06/25/23 20:52: Sodium 140, Potassium 4.9, Chloride 94 L, Carbon Dioxide 43 H*, Anion Gap 7.9, BUN 17, Creatinine 0.90, Estimated Creat Clear 79, Estimated GFR 83, Est GFR ( Amer) 100, Glucose 146 H, Calcium 8.9, Magnesium 2.2, Total Bilirubin 0.9, AST 41, ALT 24, Alkaline Phosphatase 122, Troponin I 0.03, N T-Pro-B Natriuret Pep 572 H, Total Protein 6.3, Albumin 3.3 L, Globulin 3.0, Albumin/Globulin Ratio 1.1 06/25/23 20:35 06/25/23 20:52 Response Orders (Tests/Meds): ED MEDICATIONS Generic Name Dose Route Start Last Admin Trade Name Mary PRN Reason Stop Dose Admin Acetaminophen 650 mg 06/25/23 21:38 Acetaminophen 325mg Tab PO 07/25/23 21:37 Q4HP PRN Fever or Mild Pain (1-3) Ceftriaxone Sodium 2 gm/ 100 mls @ 200 mls/hr 06/25/23 21:30 06/25/23 21:40 Sodium Chloride IV 06/25/23 21:59 Not Given ONCE ONE Sodium Chloride 1,000 mls @ 50 mls/hr 06/25/23 21:45 Sod Chlor 0.9% 1000ml Bag IV 07/25/23 21:44 .Q20H TREMAINE Morphine Sulfate 2 mg 06/25/23 21:38 Morphine 2mg/Ml Syringe IV 07/25/23 21:37 Q2HP PRN Severe Pain (7-10) Nicotine 21 mg 06/25/23 21:38 Nicotine 21mg/24hr Patch TD 07/25/23 21:37 DAILYP PRN Nicotine Cravings Pantoprazole Sodium 40 mg 06/26/23 09:00 Pantoprazole 40mg Tablet PO 07/26/23 08:59 DAILY TREMAINE Sodium Chloride 10 ml 06/25/23 21:38 Sodium Chloride 0.9% 10ml Flush Syringe IV 07/25/23 21:37 NEEDED PRN Maintain IV Site Discontinued Medications Generic Name Dose Route Start Last Admin Trade Name Mary PRN Reason Stop Dose Admin Albuterol/Ipratropium 9 ml 06/25/23 20:31 06/25/23 21:18 Ipratropium/Albuterol 3 Ml Neb IH 06/25/23 20:32 9 ml ONCE ONE Administration Ceftriaxone Sodium 2 gm/ 100 mls @ 200 mls/hr 06/25/23 21:00 06/25/23 21:20 Sodium Chloride IV 06/25/23 21:29 Not Given ONCE ONE Azithromycin 500 mg/ Sodium 250 mls @ 250 mls/hr 06/25/23 21:01 Chloride IV 06/25/23 21:02 ONCE ONE Ceftriaxone Sodium 2 gm/ 100 mls @ 200 mls/hr 06/25/23 21:30 06/25/23 21:20 Sodium Chloride IV 07/05/23 21:29 200 mls/hr Q24H TREMAINE Administration Methylprednisolone Sodium Succinate 125 mg 06/25/23 20:33 06/25/23 21:01 Methylprednisolone Sod Succ 125mg Vial IV 06/25/23 20:34 125 mg ONCE ONE Administration ORDERS Category Date Time Status XR chest portable Stat Exams 06/25/23 20:31 Taken Complete Blood Count Auto Diff Stat Lab 06/25/23 20:35 Completed Comprehensive Metabolic Panel Stat Lab 06/25/23 20:52 Results Lactic Acid Stat Lab 06/25/23 20:35 Completed Magnesium Stat Lab 06/25/23 20:52 Results NT Pro Brain Natriuretic Pep. Stat Lab 06/25/23 20:52 Results PT/INR [Prothrombin Time INR] Stat Lab 06/25/23 21:26 Ordered T4 (Thyroxine) Stat Lab 06/25/23 20:52 Results TSH [Thyroid Stimulating Hormone] Stat Lab 06/25/23 20:52 Results Troponin I Q3H Lab 06/25/23 23:45 Ordered Troponin I Q3H Lab 06/26/23 02:45 Ordered Troponin I Stat Lab 06/25/23 20:52 Results Blood Culture Stat Micro 06/25/23 20:51 Received ABG [Arterial Blood Gas] Stat RT 06/25/23 20:32 Completed MDM Narrative Medical Decision Narrative: History+ROS. It should be noted that patient has , which is currently not at goal and complicates care. History was obtained via conversation with. On arrival, patient hemodynamically stable, lethargic, intermittently following central commands, GCS 14 moving all extremities spontaneously, pupils equal and reactive to light. Full physical exam performed and significant for chronically ill-appearing male 82% on 4 L nasal cannula, placed on nonrebreather with return to 90s. Patient placed on BiPAP, improvement to mid 90s. No lower extremity edema. Patient does have bilateral diffuse wheezes, left lower lobe with decreased breath sounds and rales. Differential includes COPD exacerbation, CHF exacerbation, pneumonia, ACS, NH, coronary artery dissection, pneumothorax, PE, dissection, pericarditis, myocarditis, pneumothorax, aortic aneurysm, bronchitis, among others. Patient was given BiPAP, Solu-Medrol, DuoNebs x 3 for symptomatic management and correction of underlying abnormalities. Workup independently interpreted and significant for glucose ptosis with neutrophilia. Patient does have acidotic VBG with hypercarbia and hypoxemia. Lactate elevated at 2.9. Nonactionable chemistry. Initial troponin and BMP largely nonactionable. Chest x-ray without acute cardiopulmonary airspace disease is obvious. See radiology read for full review of final results. Independent interpretation of EKG shows sinus tachycardia 107 bpm with largely nondiagnostic EKG secondary to patient baseline tremor. No obvious ST or T wave changes concerning for ischemia. Patient placed on continuous cardiac monitoring and continuous pulse ox with initial blood pressure 129/67, heart rate 108, saturation 82% on 4 L nasal cannula. Heart score 5. On reevaluation shortly after BiPAP placed, patient opening his eyes, following peripheral commands without issue. Reassuring. Patient was given ceftriaxone and azithromycin. Fluids were held at this time because patient is clinically volume overloaded with lower extremity pitting edema. Family does not feel entirely comfortable taking him home because he has been getting worse over the past few days, I agree with this evaluation. Hospitalist was contacted and case was discussed at length after further conversation with family. Because patient high risk for clinical decompensation, deemed appropriate for inpatient admission. Results were relayed to patient who voiced understanding and patient was agreeable to inpatient admission and management. Patient was admitted to the hospital for further definitive management.
--- NOTE | 2023-06-25 20:57 | PC.NURSE ---
Blood cultures collected and sent to Lab at this time.
[2023-06-25] MEDS: METHYLPREDNISOLONE SOD SUCC 125MG VIAL 125 MG IV (21:01)
[2023-06-25 21:05] LABS: Troponin I 0.03 ng/ml (0.00-0.034)
[2023-06-25 21:16] LABS: ABG Base Excess 13.2 mmol/L (-2.4-2.3); ABG HCO3 39.5 mmhg (22.0-26.0); ABG Oxygen Saturation 86 % (90-100); ABG PH 7.31 mmol/L (7.35-7.45); ABG PO2 50.1 mmhg (80-100); ABG TCO2 41.9 mmhg (23-27)
[2023-06-25 21:17] LABS: ABG PCO2 79.6 mmhg (35.0-45.0); Allen's Test Acceptable; Oxygen 80 %; Pressure Support 18/6; Source Left Radial; Vent Rate 18
[2023-06-25] MEDS: IPRATROPIUM/ALBUTEROL 3 ML NEB 9 ML IH (21:18)
[2023-06-25] MEDS: CEFTRIAXONE SODIUM 2 GM in 0.9 % SODIUM CHLORIDE 100 ML IV (21:20)
--- NOTE | 2023-06-25 21:24 | PC.NURSE ---
Dr Ortiz notified of sepsis risk @[id number]
[2023-06-25 21:27] LABS: Alanine Aminotransferase 24 U/L (12-78); Albumin Level 3.3 g/dl (3.5-5.0); Albumin/Globulin Ratio 1.1 (1.1-1.8); Alkaline Phosphatase 122 U/L (38-126); Aspartate Amino Transferase 41 U/L (17-59); Bilirubin,Total 0.9 mg/dl (0.2-1.3); Blood Urea Nitrogen 17 mg/dl (9-20); Calcium 8.9 mg/dl (8.4-10.2); Chloride 94 mmol/L (98-107); Creatinine Clearance Estimated 79 mL/min (50-200); Estimated Glomerular Filt Rate 83 ml/min (>60); GFR (African American) 100 ML/MIN (>60); Glucose 146 mg/dl (74-100); Magnesium 2.2 mg/dl (1.6-2.3); Potassium 4.9 mmoL/L (3.5-5.1); Sodium 140 mmol/L (136-145); Total Protein,Serum 6.3 g/dl (6.3-8.2)
--- NOTE | 2023-06-25 21:33 | PC.NURSE ---
HS notified of admission for hypoxemic respiratory failure and copd exacerbation
[2023-06-25 21:34] LABS: Anion Gap 7.9 mEq/L (5-15); Carbon Dioxide 43 mmol/L (22.0-30.0)
[2023-06-25 21:37] LABS: NT Pro Brain Natriuretic Pep. 572 pg/mL (0-125)
--- NOTE | 2023-06-25 21:40 | EXP.HP ---
History of Present Illness *Admission Date: 06/25/23 *Reason for visit:: SOB, AMS *History of present illness: This is a 73yo M with PMHx of hypertension, hyperlipidemia, COPD on home oxygen and still smoking, lung cancer status post right upper lobectomy, medically non compliance presenting with altered mental status. Histoey limited due to patient mental status. Per family, patient has had worsening swelling in his legs over the past couple of days. Has also began becoming more altered throughout the day. In the mornings, is fine after using Trelegy unit at home. Throughout the day, becomes more more obtunded. At night, generally obtained until he put the Trelegy back on when he wakes up normal the next day. They check his oxygen periodically throughout the day, today was first time it was low. Brought him into the emergency department for further evaluation. Patient unable to participate in history. Admitted. [facility] Disclaimer: The information contained in this section may have been updated after the patient was seen, as this information can be updated by other users. Medical History Chronic respiratory failure with hypoxia and hypercapnia Patient has significant respiratory failure and quite frankly might even benefit from palliative care and hospice. History of bilevel positive airway pressure (BiPAP) dependence History of lung cancer Smoking greater than 30 pack years Strongly encouraged to quit smoking. Chronic hypoxemic respiratory failure History of stroke Gastrointestinal ulcer Hypertension Hyperlipidemia Lung cancer Restless legs syndrome Patient will continue the ropinirole. COPD (chronic obstructive pulmonary disease) Lumbar canal stenosis Cervical stenosis of spinal canal Neuropathy F/U with Dr Roblero to discuss decreased dose - states he has been on QID dosing as long as he can remember and is afraid that his pain will be unmanageable if dose is changed Surgical History History of hand surgery History of neck surgery Previous back surgery History of lobectomy of lung Family History Other Parkinson disease Social History (Updated 06/25/23 @ 22:54 by Alessandra Purdy RN) Smoking Status: Current every day smoker tobacco type: cigarettes packs per day: 1 alcohol intake: former substance use type: former substance user and opiates current occupational status: retired Travel in the last 8 weeks: None household members: other housing: house caffeine: No Review of Systems Review of Systems Review of systems:: unable to obtain Meds Home Medications and Allergies Home Medications Medication Instructions Recorded Confirmed Type albuterol sulfate 90 mcg/actuation 2 inh inhalation QIDP PRN 02/08/23 06/25/23 Rx aerosol inhaler shortness of breath or wheezing #8.5 grams betamethasone, augmented 0.05 % 1 applic topical BID #50 grams 02/08/23 06/25/23 Rx topical gel clopidogrel 75 mg tablet 75 mg PO DAILY Platelet Inhibitor 02/08/23 06/25/23 Rx #60 tabs fluticasone fur. 100 mcg-umeclid 1 inh inhalation DAILY Breathing 02/08/23 06/25/23 Rx 62.5 mcg-vilant 25 mcg problems #60 ea inhalat.powder (Trelegy Ellipta) ropinirole 2 mg tablet 2 mg PO HS Restless Leg(S) #60 tabs 02/08/23 06/25/23 Rx ondansetron HCl 8 mg tablet See Rx Instructions .Route 04/09/23 06/25/23 Rx .COMPLEX #60 tabs promethazine 25 mg tablet See Rx Instructions .Route 04/09/23 06/25/23 Rx .COMPLEX #90 tabs clonazepam 1 mg tablet 0.5 mg (1/2 x 1 mg) PO BID Anxiety 06/07/23 06/25/23 Rx 30 days #30 tabs gabapentin 800 mg tablet 800 mg PO QID PRN neuropathy #120 06/07/23 06/25/23 Rx tabs oxycodone 10 mg tablet 10 mg PO Q6H PRN pain 30 days #120 06/07/23 06/25/23 Rx tabs atorvastatin 80 mg tablet See Rx Instructions .Route 06/08/23 06/25/23 Rx .COMPLEX #30 tabs New Prescriptions to Start Prescriptions: Allergies Allergy/AdvReac Type Severity Reaction Status Date / Time aspirin AdvReac Intermediate Gastrointestinal Verified 06/07/23 10:36 Upset amoxicillin [From Augmentin] AdvReac Verified 06/07/23 10:36 clavulanic acid AdvReac Verified 06/07/23 10:36 [From Augmentin] Exam Data for Last 24 hours Vital signs and Labs for Last 24 Hours: Temp Pulse Resp BP Pulse Ox O2 Del Method FiO2 99.2 F 92 H 18 103/57 L 98 BiPAP 80 06/25/23 20:31 06/25/23 21:00 06/25/23 21:00 06/25/23 21:00 06/25/23 21:00 06/25/23 21:00 06/25/23 21:19 Laboratory Results - last 24 hr 06/25/23 20:32: Specimen Source Left radial, O2 % 80, ABG pH 7.31 L, ABG pCO2 79.6 H, ABG pO2 50.1 L, ABG HCO3 39.5 H, ABG Total CO2 41.9 H, ABG O2 Saturation 86 L*, ABG Base Excess 13.2 H, Aime Test Acceptable, Vent Rate 18 06/25/23 20:35: WBC 13.3 H, RBC 4.83, Hgb 15.0, Hct 50.2, MCV 103.9 H, MCH 31.0, MCHC 29.8 L, RDW 13.6, Plt Count 151, MPV 9.8, Neut % (Auto) 84.6 H, Lymph % (Auto) 5.3 L, [place] % (Auto) 6.5, Eos % (Auto) 0.7, Baso % (Auto) 2.8 H, Neut # (Auto) 11.3 H, Lymph # (Auto) 0.7, [place] # (Auto) 0.9, Eos # (Auto) 0.1, Baso # (Auto) 0.4 H, Lactate 2.9 H 06/25/23 20:52: Sodium 140, Potassium 4.9, Chloride 94 L, Carbon Dioxide 43 H*, Anion Gap 7.9, BUN 17, Creatinine 0.90, Estimated Creat Clear 79, Estimated GFR 83, Est GFR ( Amer) 100, Glucose 146 H, Calcium 8.9, Magnesium 2.2, Total Bilirubin 0.9, AST 41, ALT 24, Alkaline Phosphatase 122, Troponin I 0.03, NT-Pro-B Natriuret Pep 572 H, Total Protein 6.3, Albumin 3.3 L, Globulin 3.0, Albumin/Globulin Ratio 1.1 Temp Pulse Resp BP Pulse Ox O2 Del Method 99.2 F 115 H 17 138/70 97 Non-Rebreather 1011/23 08:32 12/16/22 09:00 12/16/22 09:00 12/16/22 09:00 12/16/22 09:00 12/16/22 09:00 Laboratory Results - last 24 hr 12/16/22 08:44: VBG pH 7.17 L, VBG pCO2 88.5 H, VBG pO2 63.7 H, VBG HCO3 31.8 H, VBG Total CO2 34.6 H, VBG O2 Saturation 89.9 H, VBG Base Excess 3.4 H 12/16/22 08:45: WBC 15.1 H, RBC 4.70, Hgb 14.9, Hct 47.1, MCV 100.1 H, MCH 31.7 H, MCHC 31.7 L, RDW 12.7, Plt Count 145, MPV 9.4, Neut % (Auto) 67.3, Lymph % (Auto) 24.3, [place] % (Auto) 6.6, Eos % (Auto) 1.1, Baso % (Auto) 0.8, Neut # (Auto) 10.2 H, Lymph # (Auto) 3.7, [place] # (Auto) 1.0, Eos # (Auto) 0.2, Baso # (Auto) 0.1, Total Counted 100, Neutrophils % (Manual) 71, Lymphocytes % (Manual) 26, Monocytes % (Manual) 3, Platelet Estimate Slight decrease, Macrocytosis 1+, Sodium 140, Potassium 4.8, Chloride 96 L, Carbon Dioxide 39 H, Anion Gap 9.8, BUN 21 H, Creatinine 1.00, Estimated Creat Clear 78, Estimated GFR 74, Est GFR ( Amer) 89, Glucose 150 H, Lactate 1.8, Calcium 8.7, Total Bilirubin 0.4, AST 36, ALT 23, Alkaline Phosphatase 203 H, Troponin I < 0.01, NT-Pro-B Natriuret Pep 910 H, Total Protein 8.5 H D, Albumin 4.5, Globulin 4.0 H, Albumin/Globulin Ratio 1.1 I & O for Last 24 hours: Intake & Output 06/22/23 06/23/23 06/24/23 06/25/23 23:59 23:59 23:59 23:59 Weight 83.915 kg Intake & Output 12/13/22 12/14/22 12/15/22 12/16/22 23:59 23:59 23:59 23:59 Weight 81.647 kg Constitutional Constitutional: average body habitus, chronically ill appearing and obtunded *Routine HEENT Exam Head: Present normocephalic and atraumatic Eye: Present EOMI and PERRL ENT: Present mucous membranes moist *Routine Neck Exam Neck: Present supple and trachea midline; Absent lymphadenopathy *Routine Respiratory Exam Respiratory: Present accessory muscle use, respiratory distress, rhonchi, wheezes and diminished air movement *Routine Cardiovascular Exam Cardiovascular: Present RRR, Normal S1 and Normal S2; Absent murmur *Routine Abdominal Exam Abdominal: Present soft and normoactive bowel sounds; Absent tenderness *Routine Rectal Exam Rectal:: deferred *Routine Genitalia Exam Genitalia:: deferred *Routine Extremities Exam Extremities: Present full ROM, pulses intact and normal capillary refill; Absent cyanosis, clubbing or edema *Routine Skin Exam Skin: Present warm; Absent rash *Routine Neurological Exam Neurological: Present altered mental status; Absent sensory deficit or motor deficit Routine Psychiatric Exam Psychiatric: Present unable to assess H&P: Result Imaging and Cardiology EKG: Status: image reviewed by me, Preliminary report and final report Chest x-ray: Status: image reviewed by me, Preliminary report and final report Assessment and Plan *Assessment and plan (1) Acute respiratory failure with hypoxia and hypercarbia: Status: Acute Category: Medical Code(s): J96.01 - Acute respiratory failure with hypoxia; J96.02 - Acute respiratory failure with hypercapnia (2) Acute exacerbation of chronic obstructive airways disease: Status: Acute Category: Medical Code(s): J44.1 - Chronic obstructive pulmonary disease with (acute) exacerbation (3) History of lung cancer: Status: Chronic Category: Medical Code(s): Z85.118 - Personal history of other malignant neoplasm of bronchus and lung (4) History of bilevel positive airway pressure (BiPAP) dependence: Status: Acute Category: Medical (5) Hypertension: Status: Acute Qualifiers: Hypertension type: unspecified Qualified Code(s): I10 - Essential (primary) hypertension Category: Medical Code(s): I10 - Essential (primary) hypertension (6) Hyperlipidemia: Status: Acute Qualifiers: Hyperlipidemia type: unspecified Qualified Code(s): E78.5 - Hyperlipidemia, unspecified Category: Medical Code(s): E78.5 - Hyperlipidemia, unspecified (7) Tobacco use: Status: Acute Category: Social Hx Code(s): Z72.0 - Tobacco use (8) Medically noncompliant: Status: Acute Category: Medical Code(s): Z91.199 - Patient's noncompliance with other medical treatment and regimen due to unspecified reason Plan yo M with PMHx of hypertension, hyperlipidemia, COPD on home oxygen and still smoking, lung cancer status post right upper lobectomy, medically non compliance presenting with altered mental status. Histoey limited due to patient mental status. Per family, patient has had worsening swelling in his legs over the past couple of days. Has also began becoming more altered throughout the day. In the mornings, is fine after using Trelegy unit at home. Throughout the day, becomes more more obtunded. On arrival Patient does have acidotic VBG with hypercarbia and hypoxemia. Lactate elevated at 2.9. Nonactionable chemistry. Initial troponin and BMP largely nonactionable. Chest x-ray without acute cardiopulmonary airspace disease is obvious. placed on cont BIpap. Discussed with ED for admission. Agreed to proceed. plan as follow: Acute on chronic hypoxic and hypercapnic respiratory failure COPD exacerbation History of lung cancer BiPAP dependence noncompliance: Admit patient for medical services. Dispo stepdown On continuous BiPAP. Respiratory therapy to assist with care Pulmonology consult DuoNeb every 6 Repeat ABG in the morning Keep n.p.o. until mentation improved Repeat labs CBC CMP daily Rocephin and Zithromax given at the ER Continue with Levaquin 750 mg for COPD exacerbation Culture pending Vital signs per unit -Other chronic conditions: Hypertension hyperlipidemia, anxiety Reconcile and resume meds On clonazepam Plavix and statin Patient on medical compliance .SCD for DVT prophylaxis on Protonix for GI bleed protection Full code
[2023-06-25] MEDS: AZITHROMYCIN 500 MG in 0.9 % SODIUM CHLORIDE 250 ML 250 MG IV (21:41)
[2023-06-25 21:45] LABS: T4 (Thyroxine) 6.7 ug/dl (5.53-11.0)
--- NOTE | 2023-06-25 21:53 | PC.NURSE ---
called report to rosalva calzada at this time
[2023-06-25 21:57] LABS: Thyroid Stimulating Hormone 0.39 uIU/mL (0.465-4.68)
[2023-06-25 22:00] LABS: INR 1.01 (0.9-1.1); Prothrombin Time 10.9 seconds (10.1-12.5)
[2023-06-26] VITALS (19 sets, daily range): BP systolic 100–150; BP diastolic 48–84; PULSE 66–104; RESP 18–42; TEMP 36.6–37.5; O2SAT 95–100; BMI 24.5
--- NOTE | 2023-06-26 | CT_ITS ---
PROCEDURE INFORMATION: Exam: CT Head Without Contrast Exam date and time: 06/26/2023 11:58 AM Age: 73 years old Clinical indication: Altered mental status/memory loss; Additional info: AMS TECHNIQUE: Imaging protocol: Computed tomography of the head without contrast. Radiation optimization: All CT scans at this facility use at least one of these dose optimization techniques: automated exposure control; mA and/or kV adjustment per patient size (includes targeted exams where dose is matched to clinical indication); or iterative reconstruction. COMPARISON: CT HEAD/BRAIN WO CON 03/21/2021 6:07 AM FINDINGS: Brain: Moderate chronic microvascular ischemic changes are noted in the periventricular areas. Mild diffuse cerebral atrophy is seen. Cerebral ventricles: No ventriculomegaly. Paranasal sinuses: Visualized sinuses are unremarkable. No fluid levels. Mastoid air cells: Mild opacification of the right mastoid air cells can be seen with acute mastoiditis. Bones/joints: Unremarkable. No acute fracture. Soft tissues: Unremarkable. IMPRESSION: 1. No acute findings. 2. Moderate chronic microvascular ischemic changes with mild diffuse cerebral atrophy. 3. Mild opacification of the right mastoid air cells can be seen with acute mastoiditis.
[2023-06-26] MEDS: 0.9 % SODIUM CHLORIDE 1000ML 1,000 ML 50 ML IV (00:01)
[2023-06-26 00:07] LABS: Troponin I 0.03 ng/ml (0.00-0.034)
[2023-06-26 00:40] LABS: Reflex Lactic Add Lactic Reflex
[2023-06-26 01:40] LABS: Lactic Acid Follow Up (RFLX 1) 1.9 mmol/L (0.7-2.1)
--- NOTE | 2023-06-26 03:12 | PC.NURSE ---
pt. getting agitated, c/o mouth being dry, trying to remove bipap, bipap removed, mouth swabs given to pt. to moisten mouth, pt. not wanting to put bipap back on, placed on 4L NC, O2 sat 93%, RT notified, HAY BALER aware.
[2023-06-26 03:44] LABS: Troponin I 0.02 ng/ml (0.00-0.034)
[2023-06-26 04:23] LABS: Microscopic, Urine URINE MICROSCOPIC (MICROSCOPIC)
[2023-06-26 04:25] LABS: Appearance,Urine CLEAR (Clear); Bilirubin,Urine Negative (Negative); Blood, Urine Negative (Negative); Color,Urine YELLOW (Yellow); Glucose,Urine (UA) Negative (Negative); Ketones,Urine TRACE (Negative); Leukocyte Esterase,Urine Negative (Negative); Nitrate,Urine Negative (Negative); Protein,Urine Negative (Negative); Urobilinogen,Urine 0.2 EU/dl (0.2)
[2023-06-26] MEDS: HALOPERIDOL LACTATE 5 MG/ML VIAL IV (04:29)
[2023-06-26 04:43] LABS: Squamous Epithelial Cell,Urine Occasional #/hpf (0-5); WBC,Urine Occasional #/hpf (0-3)
--- NOTE | 2023-06-26 05:45 | PC.NURSE ---
at 0400 pt. became very agitated and suspicious, pt. grabbed techs arms and was cursing. pt. 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 was placed back on Bipap. pt. is now resting.
[2023-06-26 07:05] LABS: Basophils % 0.3 % (0.1-2.0); Eosinophils % 0.2 % (0.1-12.0); Hematocrit 42.6 % (42.0-52.0); Lymphocytes # 0.9 K/mm3 (0.7-4.5); Lymphocytes % 10.9 % (10-50); Mean Corpuscular Hemoglobin 30.7 pg (27.0-31.2); Mean Corpuscular Volume 102.4 fl (80-94); Mean Platelet Volume 9.3 fl (7.4-10.4); Monocytes # 0.3 K/mm3 (0.1-1.0); Monocytes % 3.4 % (1.7-9.3); Neutrophils # 6.8 K/mm3 (1.8-7.8); Neutrophils % 85.1 % (37.0-80.0); Platelet Count 137 K/mm3 (142-424); Red Blood Count 4.17 M/mm3 (4.60-6.20); Red Cell Distribution Width 13.4 % (11.5-17.5)
[2023-06-26 07:07] LABS: Chloride 97 mmol/L (98-107); Potassium 4.4 mmoL/L (3.5-5.1); Sodium 140 mmol/L (136-145)
[2023-06-26 07:10] LABS: Alanine Aminotransferase 22 U/L (12-78); Albumin Level 3.1 g/dl (3.5-5.0); Albumin/Globulin Ratio 1.1 (1.1-1.8); Alkaline Phosphatase 109 U/L (38-126); Aspartate Amino Transferase 34 U/L (17-59); Bilirubin,Total 0.4 mg/dl (0.2-1.3); Blood Urea Nitrogen 19 mg/dl (9-20); Calcium 8.8 mg/dl (8.4-10.2); Creatinine Clearance Estimated 79 mL/min (50-200); Estimated Glomerular Filt Rate 83 ml/min (>60); GFR (African American) 100 ML/MIN (>60); Globulin 2.7 g/dL (1.3-3.2); Glucose 218 mg/dl (74-100); Total Protein,Serum 5.8 g/dl (6.3-8.2)
[2023-06-26 07:11] LABS: Magnesium 2.3 mg/dl (1.6-2.3)
[2023-06-26 07:17] LABS: Anion Gap 7.4 mEq/L (5-15); Carbon Dioxide 40 mmol/L (22.0-30.0)
[2023-06-26 07:19] LABS: MANUAL DIFFERENTIAL MANUAL DIFFERENTIAL (MANUAL DIFF)
[2023-06-26 07:42] LABS: Hemoglobin 12.8 g/dL (14.1-18.0)
[2023-06-26 07:56] LABS: Lymphocytes % 9 % (10-50); Macrocytosis 1+; Monocytes % 2 % (2-9); Neutrophils % 89 % (42-76); Total Cells Counted 100
[2023-06-26 07:58] LABS: Platelet Estimate Slight Decrease
[2023-06-26] MEDS: LEVOFLOXACIN/D5W 750 MG/150 ML 750 MG/150 ML PIGGYBACK 100 MG IV (09:11)
[2023-06-26 09:13] LABS: ABG Base Excess 13.2 mmol/L (-2.4-2.3); ABG HCO3 38.3 mmhg (22.0-26.0); ABG Oxygen Saturation 98 % (90-100); ABG PH 7.38 mmol/L (7.35-7.45); ABG PO2 106.9 mmhg (80-100); ABG TCO2 40.3 mmhg (23-27)
[2023-06-26] MEDS: METHYLPREDNISOLONE SOD SUCC 125MG VIAL 60 MG IV (09:17)
[2023-06-26 09:24] LABS: ABG PCO2 65.6 mmhg (35.0-45.0)
--- NOTE | 2023-06-26 09:27 | PC.NURSE ---
Rosa from respiratory called w/abg results; She states that she has already notified Dr Chapa;
--- NOTE | 2023-06-26 09:31 | PC.NURSE ---
pt too lethargic this a.m. to take PO medications. medications wasted by Mayra REYES.
--- NOTE | 2023-06-26 09:35 | HMH.PHAINT1 ---
Pharmacy Intervention Comments: MEDICATION RECONCILIATION COMPLETE USING EXTERNAL PHARMACY FILL HISTORY, MOST RECENT MD OFFICE VISIT NOTE, AND KALEB REPORT.
--- NOTE | 2023-06-26 09:52 | PC.NURSE ---
Notified MD of need for VTE at bedside during rounds
[2023-06-26] MEDS: HEPARIN SODIUM 5,000 UNIT/ML VIAL 5000 UNIT SQ ×2 (10:02→22:31)
[2023-06-26] MEDS: ALBUTEROL 0.083% 2.5 MG/3 ML NEB 5 MG IH (10:31)
--- NOTE | 2023-06-26 10:37 | HMH.ITSTN ---
Nurse to call when pt is more oriented to come down 10:25
[2023-06-26] MEDS: IPRATROPIUM/ALBUTEROL 3 ML NEB IH ×3 (11:11→22:38)
[2023-06-26] MEDS: BUDESONIDE 0.5MG/2ML NEB 0.5 MG IH (11:12)
--- NOTE | 2023-06-26 12:04 | PC.NURSE ---
Pt to CT @ 1209 by ana
--- NOTE | 2023-06-26 13:19 | PC.NURSE ---
Pt has slept most of the shift. He has had intermittent periods of confusion, repeating phrases over and over when awake. He remains on bipap with O2 sats measuring 98-100%. Diminished t/o with some wheezes noted to lungs. He was escorted to CT for scan by Niki, KARYN, myself and radiologist. He became agitated but otherwise tolerated ok. He's been NSR on telemetry. DIL has been at bedside. Bed is locked and in the lowest position, call light within reach, bed alarm activated.
--- NOTE | 2023-06-26 13:26 | EXP.PN ---
Subjective *Date: 06/26/23 *Time: 13:26 Interval history: patient is seen at bedside, on BIPAP, drowsy, but arousable, per family at bedside patient is not very compliant with his meds and inhalers Exam Data for Last 24 hours Vital signs and Labs for Last 24 Hours: Temp Pulse Resp BP Pulse Ox O2 Del Method O2 Flow Rate 97.9 F 88 18 100/67 L 100 BiPAP 4 06/26/23 07:58 06/26/23 12:00 06/26/23 12:00 06/26/23 12:00 06/26/23 12:00 06/26/23 12:36 06/26/23 04:00 FiO2 50 06/26/23 10:20 Laboratory Results - last 24 hr 06/25/23 20:32: Specimen Source Left radial, O2 % 80, ABG pH 7.31 L, ABG pCO2 79.6 H, ABG pO2 50.1 L, ABG HCO3 39.5 H, ABG Total CO2 41.9 H, ABG O2 Saturation 86 L*, ABG Base Excess 13.2 H, Aime Test Acceptable, Vent Rate 18 06/25/23 20:35: WBC 13.3 H, RBC 4.83, Hgb 15.0, Hct 50.2, MCV 103.9 H, MCH 31.0, MCHC 29.8 L, RDW 13.6, Plt Count 151, MPV 9.8, Neut % (Auto) 84.6 H, Lymph % (Auto) 5.3 L, [place] % (Auto) 6.5, Eos % (Auto) 0.7, Baso % (Auto) 2.8 H, Neut # (Auto) 11.3 H, Lymph # (Auto) 0.7, [place] # (Auto) 0.9, Eos # (Auto) 0.1, Baso # (Auto) 0.4 H, Lactate 2.9 H 06/25/23 20:52: Sodium 140, Potassium 4.9, Chloride 94 L, Carbon Dioxide 43 H*, Anion Gap 7.9, BUN 17, Creatinine 0.90, Estimated Creat Clear 79, Estimated GFR 83, Est GFR ( Amer) 100, Glucose 146 H, Calcium 8.9, Magnesium 2.2, Total Bilirubin 0.9, AST 41, ALT 24, Alkaline Phosphatase 122, Troponin I 0.03, NT-Pro-B Natriuret Pep 572 H, Total Protein 6.3, Albumin 3.3 L, Globulin 3.0, Albumin/Globulin Ratio 1.1, TSH 0.39 L, Thyroxine (T4) 6.7 06/25/23 21:40: PT 10.9, INR 1.01 06/25/23 23:30: Troponin I 0.03 06/26/23 01:25: Lactate 1.9 06/26/23 03:15: Troponin I 0.02 06/26/23 04:05: Urine Color Yellow, Urine Appearance Clear, Urine pH 7.0, Ur Specific [place] 1.020, Urine Protein Negative, Urine Glucose (UA) Negative, Urine Ketones Trace, Urine Blood Negative, Urine Nitrate Negative, Urine Bilirubin Negative, Urine Urobilinogen 0.2, Ur Leukocyte Esterase Negative, Urine RBC None, Urine WBC Occasional, Ur Squamous Epith Cells Occasional, Urine Bacteria None 06/26/23 06:25: WBC 8.0 D, RBC 4.17 L, Hgb 12.8 L D, Hct 42.6, MCV 102.4 H, MCH 30.7, MCHC 30.0 L, RDW 13.4, Plt Count 137 L, MPV 9.3, Neut % (Auto) 85.1 H, Lymph % (Auto) 10.9, [place] % (Auto) 3.4, Eos % (Auto) 0.2, Baso % (Auto) 0.3, Neut # (Auto) 6.8, Lymph # (Auto) 0.9, [place] # (Auto) 0.3, Eos # (Auto) 0.0, Baso # (Auto) 0.0, Total Counted 100, Neutrophils % (Manual) 89 H, Lymphocytes % (Manual) 9 L, Monocytes % (Manual) 2, Platelet Estimate Slight decrease, RBC Morphology Not Reportable, Macrocytosis 1+, Sodium 140, Potassium 4.4, Chloride 97 L, Carbon Dioxide 40 H, Anion Gap 7.4, BUN 19, Creatinine 0.90, Estimated Creat Clear 79, Estimated GFR 83, Est GFR ( Amer) 100, Glucose 218 H D, Calcium 8.8, Magnesium 2.3, Total Bilirubin 0.4, AST 34, ALT 22, Alkaline Phosphatase 109, Total Protein 5.8 L, Albumin 3.1 L, Globulin 2.7, Albumin/Globulin Ratio 1.1 06/26/23 09:10: ABG pH 7.38, ABG pCO2 65.6 H, ABG pO2 106.9 H, ABG HCO3 38.3 H, ABG Total CO2 40.3 H, ABG O2 Saturation 98, ABG Base Excess 13.2 H I & O for Last 24 hours: Intake & Output 06/23/23 06/24/23 06/25/23 06/26/23 23:59 23:59 23:59 23:59 Intake Total 150 / 150 Output Total 375 / 375 Balance -225 / -225 Weight 83.915 kg 83.915 kg Constitutional Constitutional: somnolent Comments: on BIPAP *Routine HEENT Exam Head: Present normocephalic Eye: Present EOMI and PERRL ENT: Present mucous membranes moist *Routine Neck Exam Neck: Present supple; Absent lymphadenopathy *Routine Respiratory Exam Respiratory: Present respiratory distress, distant breath sounds and diminished air movement *Routine Cardiovascular Exam Cardiovascular: Present RRR *Routine Abdominal Exam Abdominal: Present soft and normoactive bowel sounds; Absent tenderness *Routine Extremities Exam Extremities: Absent cyanosis, clubbing or edema *Routine Skin Exam Skin: Present warm; Absent rash *Routine Neurological Exam Neurological: Present alert and oriented X3 Assessment and Plan *Assessment and plan (1) Acute respiratory failure with hypoxia and hypercarbia: Status: Acute Category: Medical Code(s): J96.01 - Acute respiratory failure with hypoxia; J96.02 - Acute respiratory failure with hypercapnia (2) Acute exacerbation of chronic obstructive airways disease: Status: Acute Category: Medical Code(s): J44.1 - Chronic obstructive pulmonary disease with (acute) exacerbation (3) History of lung cancer: Status: Chronic Category: Medical Code(s): Z85.118 - Personal history of other malignant neoplasm of bronchus and lung (4) History of bilevel positive airway pressure (BiPAP) dependence: Status: Acute Category: Medical (5) Hypertension: Status: Acute Qualifiers: Hypertension type: unspecified Qualified Code(s): I10 - Essential (primary) hypertension Category: Medical Code(s): I10 - Essential (primary) hypertension (6) Hyperlipidemia: Status: Acute Qualifiers: Hyperlipidemia type: unspecified Qualified Code(s): E78.5 - Hyperlipidemia, unspecified Category: Medical Code(s): E78.5 - Hyperlipidemia, unspecified (7) Tobacco use: Status: Acute Category: Social Hx Code(s): Z72.0 - Tobacco use (8) Medically noncompliant: Status: Acute Category: Medical Code(s): Z91.199 - Patient's noncompliance with other medical treatment and regimen due to unspecified reason Plan yo M with PMHx of hypertension, hyperlipidemia, COPD on home oxygen and still smoking, lung cancer status post right upper lobectomy, medically non compliance presenting with altered mental status. Histoey limited due to patient mental status. Per family, patient has had worsening swelling in his legs over the past couple of days. Has also began becoming more altered throughout the day. In the mornings, is fine after using Trelegy unit at home. Throughout the day, becomes more more obtunded. On arrival Patient does have acidotic VBG with hypercarbia and hypoxemia. Lactate elevated at 2.9. Nonactionable chemistry. Initial troponin and BMP largely nonactionable. Chest x-ray without acute cardiopulmonary airspace disease is obvious. placed on cont BIpap. Discussed with ED for admission. Agreed to proceed. plan as follow: Acute on chronic hypoxic and hypercapnic respiratory failure COPD exacerbation History of lung cancer Acute metabolic encephalopathy likely due to hypercapnea BiPAP dependence noncompliance: On continuous BiPAP. Respiratory therapy to assist with care Pulmonology consulted DuoNeb every 6 Repeat ABG in the morning Keep n.p.o. until mentation improved Repeat labs CBC CMP daily Continue with Levaquin 750 mg for COPD exacerbation, Steroids, breathing treatments Culture pending Vital signs per unit -Other chronic conditions: Hypertension hyperlipidemia, anxiety On clonazepam Plavix and statin Patient on medical compliance ordered DVT prophylaxis on Protonix for GI bleed protection Full code continue BIPAP support, repeat ABG shows improvement, CT head when stablle
[2023-06-26] MEDS: MORPHINE 2MG/ML SYRINGE 2 MG IV ×2 (14:26→23:44)
[2023-06-26] MEDS: ROPINIROLE 1MG TABLET 2 MG PO (22:30)
[2023-06-26] MEDS: clonazePAM 0.5MG TABLET 0.5 MG PO (22:31)
[2023-06-27] VITALS (19 sets, daily range): BP systolic 126–163; BP diastolic 60–89; PULSE 71–110; RESP 17–25; TEMP 36.6–37.1; O2SAT 95–100; BMI 22.8
[2023-06-27] MEDS: IPRATROPIUM/ALBUTEROL 3 ML NEB IH ×4 (01:28→18:52)
[2023-06-27] MEDS: BUDESONIDE 0.5MG/2ML NEB 0.5 MG IH ×2 (06:22→18:52)
[2023-06-27 07:05] LABS: ABG Base Excess 11.3 mmol/L (-2.4-2.3); ABG HCO3 33.7 mmhg (22.0-26.0); ABG Oxygen Saturation 66 % (90-100); ABG PCO2 39.5 mmhg (35.0-45.0); ABG TCO2 34.9 mmhg (23-27)
[2023-06-27 07:06] LABS: Allen's Test Patient Unable; Oxygen 50% Bipap18/6 %; Source Right Radial; Vent Rate 20
[2023-06-27 07:08] LABS: ABG PH 7.55 mmol/L (7.35-7.45); ABG PO2 31.4 mmhg (80-100)
[2023-06-27] MEDS: CLOPIDOGREL 75MG TAB 75 MG PO (09:42)
[2023-06-27] MEDS: clonazePAM 0.5MG TABLET 0.5 MG PO ×2 (09:42→20:36)
[2023-06-27] MEDS: HEPARIN SODIUM 5,000 UNIT/ML VIAL 5000 UNIT SQ ×2 (09:42→20:36)
[2023-06-27] MEDS: ATORVASTATIN 40MG TABLET 80 MG PO (09:42)
[2023-06-27] MEDS: METHYLPREDNISOLONE SOD SUCC 125MG VIAL 60 MG IV (09:42)
[2023-06-27] MEDS: PANTOPRAZOLE 40MG TABLET 40 MG PO (09:42)
--- NOTE | 2023-06-27 09:44 | ECG_ITS ---
APPROVED REPORT Exam: Resting ECG HR:92 bpm ECG Measurements Heart Rate 92 AXES NE 124 P 69 QRSd 83 QRS 76 QT 400 T 69 QTc 450 Conclusion SINUS RHYTHM WITH FREQUENT VENTRICULAR PREMATURE COMPLEXES ABNORMAL RHYTHM ECG UNCONFIRMED REPORT Electronically signed by : AMBER MOLINA, 06/28/2023 02:59:06
[2023-06-27] MEDS: LEVOFLOXACIN/D5W 750 MG/150 ML 750 MG/150 ML PIGGYBACK 100 MG IV (10:20)
--- NOTE | 2023-06-27 14:49 | P.PN_ITS ---
Subjective *Date: 06/27/23 *Time: 14:49 Interval history: patient is seen at bedside, more alert and awake today,, per family at bedside patient is not very compliant with his meds and inhalers Exam Data for Last 24 hours Vital signs and Labs for Last 24 Hours: Temp Pulse Resp BP Pulse Ox O2 Del Method O2 Flow Rate 98.1 F 97 H 22 141/70 H 97 Nasal Cannula 2.5 06/27/23 11:42 06/27/23 14:21 06/27/23 10:00 06/27/23 10:00 06/27/23 14:21 06/27/23 14:21 06/27/23 14:21 FiO2 50 06/27/23 06:20 Laboratory Results - last 24 hr 06/27/23 07:01: Specimen Source Right radial, O2 % 50% bipap18/6, ABG pH 7.55 H , ABG pCO2 39.5, ABG pO2 31.4 L, ABG HCO3 33.7 H, ABG Total CO2 34.9 H, ABG O2 Saturation 66 L*, ABG Base Excess 11.3 H, Amie Test Patient unable, Vent Rate 20 I & O for Last 24 hours: Intake & Output 06/24/23 06/25/23 06/26/23 06/27/23 23:59 23:59 23:59 23:59 Intake Total 150 / 150 270 / 270 Output Total 825 / 825 450 / 450 Balance -675 / -675 -180 / -180 Weight 83.915 kg 83.915 kg 78.335 kg Constitutional Constitutional: no acute distress *Routine HEENT Exam Head: Present normocephalic Eye: Present EOMI and PERRL ENT: Present mucous membranes moist *Routine Neck Exam Neck: Present supple; Absent lymphadenopathy *Routine Respiratory Exam Respiratory: Present distant breath sounds and diminished air movement *Routine Cardiovascular Exam Cardiovascular: Present RRR *Routine Abdominal Exam Abdominal: Present soft and normoactive bowel sounds; Absent tenderness *Routine Extremities Exam Extremities: Absent cyanosis, clubbing or edema *Routine Skin Exam Skin: Present warm; Absent rash *Routine Neurological Exam Neurological: Present alert and oriented X3 Assessment and Plan *Assessment and plan (1) Acute respiratory failure with hypoxia and hypercarbia: Status: Acute Category: Medical Code(s): J96.01 - Acute respiratory failure with hypoxia; J96.02 - Acute respiratory failure with hypercapnia (2) Acute exacerbation of chronic obstructive airways disease: Status: Acute Category: Medical Code(s): J44.1 - Chronic obstructive pulmonary disease with (acute) exacerbation (3) History of lung cancer: Status: Chronic Category: Medical Code(s): Z85.118 - Personal history of other malignant neoplasm of bronchus and lung (4) History of bilevel positive airway pressure (BiPAP) dependence: Status: Acute Category: Medical (5) Hypertension: Status: Acute Qualifiers: Hypertension type: unspecified Qualified Code(s): I10 - Essential (primary) hypertension Category: Medical Code(s): I10 - Essential (primary) hypertension (6) Hyperlipidemia: Status: Acute Qualifiers: Hyperlipidemia type: unspecified Qualified Code(s): E78.5 - Hyp erlipidemia, unspecified Category: Medical Code(s): E78.5 - Hyperlipidemia, unspecified (7) Tobacco use: Status: Acute Category: Social Hx Code(s): Z72.0 - Tobacco use (8) Medically noncompliant: Status: Acute Category: Medical Code(s): Z91.199 - Patient's noncompliance with other medical treatment and regimen due to unspecified reason Plan yo M with PMHx of hypertension, hyperlipidemia, COPD on home oxygen and still smoking, lung cancer status post right upper lobectomy, medically non compliance presenting with altered mental status. Histoey limited due to patient mental status. Per family, patient has had worsening swelling in his legs over the past couple of days. Has also began becoming more altered throughout the day. In the mornings, is fine after using Trelegy unit at home. Throughout the day, becomes more more obtunded. On arrival Patient does have acidotic VBG with hypercarbia and hypoxemia. Lactate elevated at 2.9. Nonactionable chemistry. Initial troponin and BMP largely nonactionable. Chest x-ray without acute cardiopulmonary airspace disease is obvious. placed on cont BIpap. Discussed with ED for admission. Agreed to proceed. plan as follow: Acute on chronic hypoxic and hypercapnic respiratory failure COPD exacerbation History of lung cancer Acute metabolic encephalopathy likely due to hypercapnea - improved BiPAP dependence noncompliance: On continuous BiPAP. Respiratory therapy to assist with care Pulmonology consulted DuoNeb every 6 Repeat labs CBC CMP daily Continue with Levaquin 750 mg for COPD exacerbation, Steroids, breathing treatments Culture pending Vital signs per unit -Other chronic conditions: Hypertension hyperlipidemia, anxiety On clonazepam Plavix and statin Patient on medical compliance ordered DVT prophylaxis on Protonix for GI bleed protection Full code continue O2 support, breathing treatments, likely DC 1-2 days, cosnult PT/OT
--- NOTE | 2023-06-27 14:57 | PC.NURSE ---
Report given to Mercedes Tompkins
[2023-06-27] MEDS: ACETAMINOPHEN 325MG TAB 650 MG PO (19:35)
[2023-06-27] MEDS: POLYETHYLENE GLYCOL 3350 17 GM PACKET PO (19:36)
[2023-06-27] MEDS: ROPINIROLE 1MG TABLET 2 MG PO (20:36)
[2023-06-28] VITALS (7 sets, daily range): BP systolic 123–144; BP diastolic 68–72; PULSE 68–97; RESP 16–22; TEMP 36.4–36.8; O2SAT 88–98; BMI 23.2
[2023-06-28] MEDS: GABAPENTIN 800MG TABLET 800 MG PO ×2 (01:51→09:28)
--- NOTE | 2023-06-28 05:56 | PC.NURSE ---
Pt is alert to self, and has moments of confusion. Pt has c/o pain and constipation this shift and has been treated per MAR. granddaughter at bedside.
[2023-06-28] MEDS: FLUTICASONE/UMECLIDIN/VILANTER 100/62.5/25MCG INHALER 1 PUFF IH (06:09)
[2023-06-28] MEDS: BUDESONIDE 0.5MG/2ML NEB 0.5 MG IH (06:09)
[2023-06-28] MEDS: IPRATROPIUM/ALBUTEROL 3 ML NEB IH ×2 (06:09→09:56)
[2023-06-28 07:01] LABS: Basophils % 0.2 % (0.1-2.0); Hematocrit 41.3 % (42.0-52.0); Hemoglobin 12.9 g/dL (14.1-18.0); Lymphocytes # 1.5 K/mm3 (0.7-4.5); Lymphocytes % 14.6 % (10-50); Mean Corpuscular HGB Conc 31.2 g/dL (31.8-35.4); Mean Corpuscular Hemoglobin 30.2 pg (27.0-31.2); Mean Corpuscular Volume 96.8 fl (80-94); Mean Platelet Volume 9.2 fl (7.4-10.4); Monocytes # 0.9 K/mm3 (0.1-1.0); Monocytes % 9.2 % (1.7-9.3); Neutrophils # 7.7 K/mm3 (1.8-7.8); Neutrophils % 75.9 % (37.0-80.0); Platelet Count 181 K/mm3 (142-424); Red Blood Count 4.26 M/mm3 (4.60-6.20); Red Cell Distribution Width 14.1 % (11.5-17.5); White Blood Count 10.1 K/mm3 (4.8-10.8)
[2023-06-28 07:11] LABS: Chloride 108 mmol/L (98-107); Potassium 3.4 mmoL/L (3.5-5.1); Sodium 143 mmol/L (136-145)
[2023-06-28 07:14] LABS: Anion Gap 3.4 mEq/L (5-15); Blood Urea Nitrogen 32 mg/dl (9-20); Calcium 8.8 mg/dl (8.4-10.2); Carbon Dioxide 35 mmol/L (22.0-30.0); Creatinine Clearance Estimated 75 mL/min (50-200); Estimated Glomerular Filt Rate 83 ml/min (>60); GFR (African American) 100 ML/MIN (>60); Glucose 165 mg/dl (74-100)
--- NOTE | 2023-06-28 08:35 | HMH.PTEV ---
Physical Therapy Evaluation Rehab PT IP Evaluation Start: 06/27/23 14:52 Freq: ONCE Status: Active Protocol: Document 06/28/23 08:25 JOSE (Rec: 06/28/23 08:35 JOSE [id number]) Subjective/History History History Per H&P: This is a 73yo M with PMHx of hypertension, hyperlipidemia, COPD on home oxygen and still smoking, lung cancer status post right upper lobectomy, medically non compliance presenting with altered mental status. Histoey limited due to patient mental status. Per family, patient has had worsening swelling in his legs over the past couple of days. Has also began becoming more altered throughout the day. In the mornings, is fine after using Trelegy unit at home. Throughout the day, becomes more more obtunded. At night, generally obtained until he put the Trelegy back on when he wakes up normal the next day. They check his oxygen periodically throughout the day, today was first time it was low. Brought him into the emergency department for further evaluation. Patient unable to participate in history. Admitted. Subjective Subjective I'm ready to get up. I've been in bed for weeks . Pt is questionable historian. Confirm history with CM. PLOF per pt report: Living with son and daughter in law in a 2 story home with 1 KASI. Lives on the first floor. Used a cane, RW, and w/c for mobility. Was IND with ADLs and functional mobility. Not driving prior to admission. New diagnosis of cancer in past 12 No months? Rehab PT IP Eval Objective Appearance Patient Behavior Appropriate,Cooperative Patient Orientation Person,Place Difficulty following instructions none Speech Pattern Clear,Includes Profanity Ambulation Patient Able to Ambulate Yes Ambulation Observation Ambulation Distance (feet) 15 Ambulation Assistive Device Rolling Walker Ambulation Ability Supervision/Stand by,Contact Guard/Hand Hold Balance Ability to Arise Able, uses arms to help Sitting Balance Steady, safe Standing Balance Steady, wide stance Dynamic Sitting Balance Ability Good Dynamic Standing Balance Ability Good Transfers Bed Transfer Ability Minimal x 1 (25% assist) Sit to Stand Bed Transfer Ability Supervision/Stand by MMT All Extremities PT MMT WFL Rehab PT IP prob,goals,plan Problems Date of Evaluation: 06/28/23 PT IP Problems Bed Mobility,Transfers,Gait, Balance,Self care,Safety Rehab Potential Rehab Potential Good Equipment Needs Assistive Devices Rolling / Wheeled Walker Plan PT Intervention Plan Bed Mobility,Transfers,Gait, Balance,Safety,Therapeutic Exercise Other Intervention Plan 1-2 times PT Plan Frequency Daily Duration LOS Discharge Goals Bed Transfer Ability Supervision/Stand by Sit to Stand Chair Transfer Ability Independent Ambulation Assistive Device Rolling Walker Ambulation Distance (feet) 50 Discharge Plan PT Discharge Plan At this time, pt displayed good ability to ambulate with RW and CGA-SUP. PT is unsure if pt owns RW d/t pt confusion . PT recommending RW for safety. Pt able to d/c home when deemed medically necessary d/t current level of mobility and family support. Pt would benefit from skilled acute care PT to maximize safety with mobility and prevent further functional decline. PT recommending PT services to address deficits upon d/c from [facility]. Eval Complexity Eval Charge Codes 94625 - Moderate Complexity PHYSICIAN CERTIFICATION: I certify the specified therapy services for Guille Cardenas are required, authorized, and reviewed every 30 days.
[2023-06-28] MEDS: ATORVASTATIN 40MG TABLET 80 MG PO (09:20)
[2023-06-28] MEDS: CLOPIDOGREL 75MG TAB 75 MG PO (09:21)
[2023-06-28] MEDS: PANTOPRAZOLE 40MG TABLET 40 MG PO (09:21)
[2023-06-28] MEDS: METHYLPREDNISOLONE SOD SUCC 125MG VIAL 60 MG IV (09:22)
[2023-06-28] MEDS: HEPARIN SODIUM 5,000 UNIT/ML VIAL 5000 UNIT SQ (09:23)
[2023-06-28] MEDS: clonazePAM 0.5MG TABLET 0.5 MG PO (09:28)
--- NOTE | 2023-06-28 09:46 | HMH.OTEV ---
OT Inpatient Evaluation Rehab OT IP Evaluation Start: 06/27/23 14:52 Freq: ONCE Status: Active Protocol: Document 06/28/23 09:40 [facility] (Rec: 06/28/23 09:46 [facility] [id number]) Rehab OT IP Assessment Subjective History Pt oriented x 3 on arrival. Pt admitted to [facility] on 06/25/23 due to COPD exacerbation/SOB. History and Physical report: This is a 73yo M with PMHx of hypertension, hyperlipidemia, COPD on home oxygen and still smoking, lung cancer status post right upper lobectomy, medically non compliance presenting with altered mental status. Histoey limited due to patient mental status. Per family, patient has had worsening swelling in his legs over the past couple of days. Has also began becoming more altered throughout the day. In the mornings, is fine after using Trelegy unit at home. Throughout the day, becomes more more obtunded. At night, generally obtained until he put the Trelegy back on when he wakes up normal the next day. They check his oxygen periodically throughout the day, today was first time it was low. Brought him into the emergency department for further evaluation. Patient unable to participate in history. Admitted. Subjective When do I get to go home? Pt reports prior to being in the hospital he lived at home with his son and daugther. Pt claims normally he is indpependent with all ADLs. Pt did wear o2 at home; off and on according to patient. Pt uses a cane, walker, and/ or wheelchair during functional transfers. Pt is dependent on family for completion of all IADLs. Objective Patient Orientation Person,Place,Birthday Right Upper Extremity Gross ROM WFL Left Upper Extremity Gross ROM WFL Transfer Training Sit/Stand Transfer Assist Level Contact Guard/Hand Hold Lower Body Dressing Ability Standby Assistance Rehab OT IP prob,goals,plan Problems Date of Evaluation: 06/28/23 OT IP Problems Bed Mobility,Transfers,Balance ,Self care,Safety Rehab Potential Rehab Potential Good Equipment Needs Assistive Devices Rolling / Wheeled Walker Plan OT intervention Plan Bed Mobility,Transfers,Balance ,Self care,Safety,Therapeutic Exercise OT Plan Frequency Daily Duration LOS Discharge Goals Bed Mobility Ability Standby Assistance Sit to Stand Chair Transfer Ability Supervision/Stand by Chair Transfer Ability Supervision/Stand by Chair Transfer Technique Sit to/from Ambulatory Chair Transfer Assistive Devices Rolling Walker Feeding Ability Assist with Tray Set Up Lower Body Dressing Ability Standby Assistance Upper Body Dressing Ability Standby Assistance Bathing Ability Standby Assistance Performing Toilet Hygiene Ability Standby Assistance Overall Commode/Toilet Transfer Ability Standby Assistance Commode/Toilet Transfer Technique Sit to/from Ambulatory Commode/Toilet Transfer Assistive Grab Bars Devices Oral Care Assist Standby Assistance Decrease in Endurance Yes Discharge Plan OT Discharge Plan Pt will continue to be seen for OT services while at [facility]. Pt can return home with family assistance once he is medically stable per physician . Therapist recommends OT evaluation upon returning home for continued skilled therapy to reach PLOF. Eval Complexity Eval Charge Codes 46669 - Moderate Complexity PHYSICIAN CERTIFICATION: I certify the specified therapy services for Guille Cardenas are required, authorized, and reviewed every 30 days.
--- NOTE | 2023-06-28 09:53 | P.CONS_ITS ---
History of Present Illness History of present illness: Mr. Cardenas is a 73-year-old male history of COPD, lung cancer status post lobectomy chronic hypoxic hypercarbic respiratory failure on home noninvasive ventilator therapy at baseline at home (BiPAP therapy 20/10 with 30% FiO2 and a rate of 20) presented there with worsening mentation, found to be in hypercarbic respiratory failure needing noninvasive ventilator treatment pulmonary was consulted for the weekend. [facility] Disclaimer: The information contained in this section may have been updated after the patient was seen, as this information can be updated by other users. Medical History Chronic respiratory failure with hypoxia and hypercapnia Patient has significant respiratory failure and quite frankly might even benefit from palliative care and hospice. History of bilevel positive airway pressure (BiPAP) dependence History of lung cancer Smoking greater than 30 pack years Strongly encouraged to quit smoking. Chronic hypoxemic respiratory failure History of stroke Gastrointestinal ulcer Hypertension Hyperlipidemia Lung cancer Restless legs syndrome Patient will continue the ropinirole. COPD (chronic obstructive pulmonary disease) Lumbar canal stenosis Cervical stenosis of spinal canal Neuropathy F/U with Dr Roblero to discuss decreased dose - states he has been on QID dosing as long as he can remember and is afraid that his pain will be unmanageable if dose is changed Surgical History History of hand surgery History of neck surgery Previous back surgery History of lobectomy of lung Family History Other Parkinson disease Social History (Updated 06/25/23 @ 22:54 by Alessandra Purdy RN) Smoking Status: Current every day smoker tobacco type: cigarettes packs per day: 1 alcohol intake: former substance use type: former substance user and opiates current occupational status: retired Travel in the last 8 weeks: None household members: other housing: house caffeine: No Review of Systems Constitutional Constitutional: Reports fatigue Eyes Eyes: Denies eye discharge, Denies dry eyes, Denies irritation and Denies itchy eyes ENT Ears, Nose, Mouth, and Throat: Denies epistaxis, Denies facial pain, Denies lip swelling and Denies throat swelling *Cardiovascular Cardiovascular: Reports dyspnea and Reports dyspnea on exertion *Respiratory Respiratory: Reports chest congestion, Reports cough, Reports dyspnea, Reports dyspnea on exertion, Reports excessive phlegm production, Denies hemoptysis, Denies pain with cough and Reports wheezing *Gastrointestinal Gastrointestinal: Denies abdominal pain, Denies belching and Denies cramping *Musculoskeletal Musculoskeletal: Reports back pain, Reports myalgias and Reports other (No small joint swelling or Pain) Psychiatric Psychiatric: Denies homicidal ideation and Denies suicidal ideation Endocrine Endocrine: Reports fatigue and Denies heat intolerance Hematologic/Lymphatic Hematologic/Lymphatic: Denies easy bleeding and Denies lymphadenopathy Allergic/Immunologic Allergic/Immunologic: Denies itchy eyes, Denies lip swelling, Denies throat swelling and Reports wheezing Pulmonology Exam Inpatient Vital signs and Labs for Last 24 Hours: Temp Pulse Resp BP Pulse Ox O2 Del Method O2 Flow Rate 98.2 F 97 H 17 123/68 94 L Nasal Cannula 2 06/28/23 08:00 06/28/23 08:00 06/28/23 08:00 06/28/23 08:00 06/28/23 08:00 06/28/23 08:00 06/28/23 08:00 FiO2 50 06/27/23 06:20 Laboratory Results - last 24 hr 06/28/23 05:45: WBC 10.1 D, RBC 4.26 L, Hgb 12.9 L, Hct 41.3 L, MCV 96.8 H, MCH 30.2, MCHC 31.2 L, RDW 14.1, Plt Count 181 D, MPV 9.2, Neut % (Auto) 75.9, Lymph % (Auto) 14.6, [place] % (Auto) 9.2, Eos % (Auto) 0.0 L, Baso % (Auto) 0.2, Neut # (Auto) 7.7, Lymph # (Auto) 1.5, [place] # (Auto) 0.9, Eos # (Auto) 0.0, Baso # (Auto) 0.0, Sodium 143, Potassium 3.4 L D, Chloride 108 H, Carbon Dioxide 35 H , Anion Gap 3.4 L, BUN 32 H D, Creatinine 0.90, Estimated Creat Clear 75, Estimated GFR 83, Est GFR ( Amer) 100, Glucose 165 H, Calcium 8.8 I & O for Labs for Last 24 Hours: Intake & Output 06/25/23 06/26/23 06/27/23 06/28/23 23:59 23:59 23:59 23:59 Intake Total 150 / 150 990 / 990 Output Total 825 / 825 450 / 450 0 / 0 Balance -675 / -675 540 / 540 0 / 0 Weight 185 lb 185 lb 0.014 oz 172 lb 11.186 oz 175 lb 3 oz Constitutional: Present moderate distress Head: Present normocephalic and atraumatic ENT: Present normal exam, normal oropharynx and mucous membranes moist Neck: Present normal inspection and full ROM Respiratory: Present respiratory distress, rhonchi, diminished air movement and able to speak in complete sentences; Absent wheezes Cardiac: Present S1/S2, Tachycardia and radial pulses present GI: Present soft and distention; Absent tenderness or guarding Skin: Present intact; Absent cyanosis or jaundice Neuro: Present alert, awake and oriented x 3 Extremities: Present normal inspection; Absent clubbing or cyanosis Psychiatric: Present normal affect and cooperative Meds Home Medications and Allergies Home Medications Medication Instructions Recorded Confirmed Type albuterol sulfate 90 mcg/actuation 2 inh inhalation QIDP PRN 02/08/23 06/26/23 Rx aerosol inhaler shortness of breath or wheezing #8.5 grams betamethasone, augmented 0.05 % 1 applic topical BID #50 grams 02/08/23 06/26/23 Rx topical gel clopidogrel 75 mg tablet 75 mg PO DAILY Platelet Inhibitor 02/08/23 06/26/23 Rx #60 tabs fluticasone fur. 100 mcg-umeclid 1 inh inhalation DAILY Breathing 02/08/23 06/26/23 Rx 62.5 mcg-vilant 25 mcg problems #60 ea inhalat.powder (Trelegy Ellipta) ropinirole 2 mg tablet 2 mg PO HS Restless Leg(S) #60 tabs 02/08/23 06/26/23 Rx clonazepam 1 mg tablet 0.5 mg (1/2 x 1 mg) PO BID Anxiety 06/07/23 06/26/23 Rx 30 days #30 tabs atorvastatin 80 mg tablet 80 mg PO DAILY 06/26/23 06/26/23 History gabapentin 800 mg tablet 800 mg PO QIDP PRN NERVE PAIN 06/26/23 06/26/23 History ondansetron HCl 8 mg tablet 8 mg PO TIDP PRN Nausea And 06/26/23 06/26/23 History Vomiting oxycodone 10 mg tablet 10 mg PO Q6HP PRN Severe Pain 06/26/23 06/26/23 History (Scale Score 7-10) promethazine 25 mg tablet 25 mg PO TIDP PRN Nausea And 06/26/23 06/26/23 History Vomiting atorvastatin 40 mg tablet 80 mg (2 x 40 mg) PO DAILY 30 days 06/28/23 Rx #60 tabs levofloxacin 750 mg tablet 750 mg PO Q24H 5 days #5 tabs 06/28/23 Rx pantoprazole 40 mg tablet,delayed 40 mg PO DAILY 30 days #30 tabs 06/28/23 Rx release prednisone 50 mg tablet 50 mg PO DAILY 5 days #5 tabs 06/28/23 Rx New Prescriptions to Start Prescriptions: atorvastatin Edil,Irfan levofloxacin Edil,Irfan pantoprazole Edil,Irfan prednisone Edil,Irfan Allergies Allergy/AdvReac Type Severity Reaction Status Date / Time aspirin AdvReac Intermediate Gastrointestinal Verified 06/07/23 10:36 Upset amoxicillin [From Augmentin] AdvReac Verified 06/07/23 10:36 clavulanic acid AdvReac Verified 06/07/23 10:36 [From Augmentin] Results Laboratory Findings 06/28/23 05:45 06/28/23 05:45 ABG ABG pH 7.55 mmol/L (7.35-7.45) H 06/27/23 07:01 ABG pCO2 39.5 mmhg (35.0-45.0) 06/27/23 07:01 ABG pO2 31.4 mmhg (80-100) L 06/27/23 07:01 ABG O2 Saturation 66 % (90-100) L* 06/27/23 07:01 PT/INR, D-dimer PT 10.9 seconds (10.1-12.5) 06/25/23 21:40 INR 1.01 (0.9-1.1) 06/25/23 21:40 Abnormal lab findings: Abnormal Labs 06/25/23 06/25/23 06/25/23 20:32 20:35 20:52 WBC 13.3 H RBC Hgb Hct MCV 103.9 H MCHC 29.8 L Plt Count Neut % (Auto) 84.6 H Lymph % (Auto) 5.3 L Eos % (Auto) Baso % (Auto) 2.8 H Neut # (Auto) 11.3 H Baso # (Auto) 0.4 H Neutrophils % (Manual) Lymphocytes % (Manual) ABG pH 7.31 L ABG pCO2 79.6 H ABG pO2 50.1 L ABG HCO3 39.5 H ABG Total CO2 41.9 H ABG O2 Saturation 86 L* ABG Base Excess 13.2 H Potassium Chloride 94 L Carbon Dioxide 43 H* Anion Gap BUN Glucose 146 H Lactate 2.9 H NT-Pro-B Natriuret Pep 572 H Total Protein Albumin 3.3 L TSH 0.39 L 06/26/23 06/26/23 06/27/23 06:25 09:10 07:01 WBC RBC 4.17 L Hgb 12.8 L D Hct MCV 102.4 H MCHC 30.0 L Plt Count 137 L Neut % (Auto) 85.1 H Lymph % (Auto) Eos % (Auto) Baso % (Auto) Neut # (Auto) Baso # (Auto) Neutrophils % (Manual) 89 H Lymphocytes % (Manual) 9 L ABG pH 7.55 H ABG pCO2 65.6 H ABG pO2 106.9 H 31.4 L ABG HCO3 38.3 H 33.7 H ABG Total CO2 40.3 H 34.9 H ABG O2 Saturation 66 L* ABG Base Excess 13.2 H 11.3 H Potassium Chloride 97 L Carbon Dioxide 40 H Anion Gap BUN Glucose 218 H D Lactate NT-Pro-B Natriuret Pep Total Protein 5.8 L Albumin 3.1 L TSH 06/28/23 05:45 WBC RBC 4.26 L Hgb 12.9 L Hct 41.3 L MCV 96.8 H MCHC 31.2 L Plt Count Neut % (Auto) Lymph % (Auto) Eos % (Auto) 0.0 L Baso % (Auto) Neut # (Auto) Baso # (Auto) Neutrophils % (Manual) Lymphocytes % (Manual) ABG pH ABG pCO2 ABG pO2 ABG HCO3 ABG Total CO2 ABG O2 Saturation ABG Base Excess Potassium 3.4 L D Chloride 108 H Carbon Dioxide 35 H Anion Gap 3.4 L BUN 32 H D Glucose 165 H Lactate NT-Pro-B Natriuret Pep Total Protein Albumin TSH Assessment and Plan *Assessment and plan (1) Acute respiratory failure with hypoxia and hypercarbia: Status: Acute Category: Medical Code(s): J96.01 - Acute respiratory failure with hypoxia; J96.02 - Acute respiratory failure with hypercapnia (2) Acute exacerbation of chronic obstructive airways disease: Status: Acute Category: Medical Code(s): J44.1 - Chronic obstructive pulmonary disease with (acute) exacerbation (3) Pneumonia: Status: Resolved Qualifiers: Pneumonia type: due to unspecified organism Laterality: left Lung location: lower lobe of lung Qualified Code(s): J18.9 - Pneumonia, unspecified organism Category: Medical Code(s): J18.9 - Pneumonia, unspecified organism Plan Mr. Cardenas is a 73-year-old male history of COPD, lung cancer status post lobectomy chronic hypoxic hypercarbic respiratory failure on home noninvasive ventilator therapy at baseline at home (BiPAP therapy 20/10 with 30% FiO2 and a rate of 20) presented there with worsening mentation, found to be in hypercarbic respiratory failure needing noninvasive ventilator treatment pulmonary was consulted for the weekend. ABG upon admission showed hypercarbic respiratory failure with a pH of 7.31 and pCO2 79.6. pO2 also elevated 50.1. Chest x-ray upon admission no dense consolidation/airspace disease noted. Left lower lobe concerning atelectasis. Mild neutrophilic leukocytosis upon admission, improving. COVID-19 and flu PCR negative. Repeat ABG shows improving improving hypercarbic respiratory failure and patient was weaned to nasal cannula. Patient continued to receive levofloxacin, methylprednisolone 60 IV daily along with DuoNebs every 4 hours scheduled and Pulmicort every 12 scheduled. Patient on today's examination moderate respiratory distress. Chest clear to auscultate with no significant wheezing saturating 98% on 2 L, weaned to 1 L. Patient admits compliance with his BiPAP therapy. Plan: Wean steroids to prednisone 40 mg daily to complete total of 5-day course Continue levofloxacin for total of 7 days Will obtain BiPAP compliance report prior to discharge Trelegy 100 inhaler along with DuoNebs every 6 hours on as-needed basis upon discharge Continue BiPAP ST therapy at night/while asleep at 20/10 with 30% FiO2 and a rate of 20. Will review compliance report did recommend any changes prior to discharge
--- NOTE | 2023-06-28 09:58 | SW/DCPLANNER ---
Addendum entered by Jeannette Booker 06/28/23 15:50: Per Brittani villalobos/ Psychiatric this patient has refused all home health services. Addendum entered by Jeannette Booker 06/28/23 13:18: Brittani villalobos/ Psychiatric stated that services will start tomorrow 06/29/23 for this patient. Addendum entered by Jeannette Booker 06/28/23 12:21: Patient/family have also expressed changing DME company to [facility]: I have contacted Sophie villalobos/ [place] regarding situation. Original Note: I spoke w/ patient regarding plans once medically stable for discharge. PT/OT evaluated patient and recommended home w/ home health services. I spoke w/ patient regarding home health and he asked that I call and discuss it w/ his son Aime. Aime is agreeable to home health services and prefers to use [facility]. Patient information/order will be faxed this AM. Patient will discharge home today.
--- NOTE | 2023-06-28 10:50 | HMH.PHAINT1 ---
Pharmacy Intervention Comments: DISCHARGE MEDICATION COUNSELING WAS PROVIDED TO PATIENT AND FAMILY MEMBER ON ATORVASTATIN, PREDNISONE, PANTOPRAZOLE, AND LEVOFLOXACIN FOR INDICATION, DOSE, AND POSSIBLE SIDE EFFECTS. PATIENT AND FAMILY MEMBER VERBALIZED UNDERSTANDING WITH NO FURTHER QUESTIONS.
--- NOTE | 2023-06-28 13:29 | PC.NURSE ---
patient oxygen saturation on room air was 88%.
--- NOTE | 2023-06-28 15:24 | P.DS_ITS ---
General Admission date:: 06/25/23 Discharge date: 06/28/23 HPI HPI HPI: This is a 73yo M with PMHx of hypertension, hyperlipidemia, COPD on home oxygen and still smoking, lung cancer status post right upper lobectomy, medically non compliance presenting with altered mental status. Histoey limited due to patient mental status. Per family, patient has had worsening swelling in his legs over the past couple of days. Has also began becoming more altered throughout the day. In the mornings, is fine after using Trelegy unit at home. Throughout the day, becomes more more obtunded. At night, generally obtained until he put the Trelegy back on when he wakes up normal the next day. They check his oxygen periodically throughout the day, today was first time it was low. Brought him into the emergency department for further evaluation. Patient unable to participate in history. Admitted. Hospital Course Hospital Course Hospital Course: yo M with PMHx of hypertension, hyperlipidemia, COPD on home oxygen and still smoking, lung cancer status post right upper lobectomy, medically non compliance presenting with altered mental status. Histoey limited due to patient mental status. Per family, patient has had worsening swelling in his legs over the past couple of days. Has also began becoming more altered throughout the day. In the mornings, is fine after using Trelegy unit at home. Throughout the day, becomes more more obtunded. On arrival Patient does have acidotic VBG with hypercarbia and hypoxemia. Lactate elevated at 2.9. Nonactionable chemistry. Initial troponin and BMP largely nonactionable. Chest x-ray without acute cardiopulmonary airspace disease is obvious. placed on cont BIpap. Discussed with ED for admission. Agreed to proceed. plan as follow: Acute on chronic hypoxic and hypercapnic respiratory failure - improved COPD exacerbation - improved History of lung cancer Acute metabolic encephalopathy likely due to hypercapnea - improved DC on levaquin, prednisone Discussed with pulmonary ok with DC and stable for discharge patient 88% on RA, dc on 2L NC for COPD Exam Data for Last 24 hours Vital signs and Labs for Last 24 Hours: Temp Pulse Resp BP Pulse Ox O2 Del Method O2 Flow Rate 98.2 F 84 17 123/68 88 L Room Air 2 06/28/23 08:00 06/28/23 09:58 06/28/23 08:00 06/28/23 08:00 06/28/23 13:29 06/28/23 13:29 06/28/23 08:00 FiO2 50 06/27/23 06:20 Laboratory Results - last 24 hr 06/28/23 05:45: WBC 10.1 D, RBC 4.26 L, Hgb 12.9 L, Hct 41.3 L, MCV 96.8 H, MCH 30.2, MCHC 31.2 L, RDW 14.1, Plt Count 181 D, MPV 9.2, Neut % (Auto) 75.9, Lymph % (Auto) 14.6, [place] % (Auto) 9.2, Eos % (Auto) 0.0 L, Baso % (Auto) 0.2, Neut # (Auto) 7.7, Lymph # (Auto) 1.5, [place] # (Auto) 0.9, Eos # (Auto) 0.0, Baso # (Auto) 0.0, Sodium 143, Potassium 3.4 L D, Chloride 108 H, Carbon Dioxide 35 H , Anion Gap 3.4 L, BUN 32 H D, Creatinine 0.90, Estimated Creat Clear 75, Estimated GFR 83, Est GFR ( Amer) 100, Glucose 165 H, Calcium 8.8 I & O for Last 24 hours: Intake & Output 06/25/23 06/26/23 06/27/23 06/28/23 23:59 23:59 23:59 23:59 Intake Total 150 / 150 990 / 990 Output Total 825 / 825 450 / 450 0 / 0 Balance -675 / -675 540 / 540 0 / 0 Weight 83.915 kg 83.915 kg 78.335 kg 79.464 kg Constitutional Constitutional: no acute distress *Routine HEENT Exam Head: Present normocephalic Eye: Present EOMI and PERRL ENT: Present mucous membranes moist *Routine Neck Exam Neck: Present supple; Absent lymphadenopathy *Routine Respiratory Exam Respiratory: Present distant breath sounds and diminished air movement *Routine Cardiovascular Exam Cardiovascular: Present RRR *Routine Abdominal Exam Abdominal: Present soft and normoactive bowel sounds; Absent tenderness *Routine Extremities Exam Extremities: Absent cyanosis, clubbing or edema *Routine Skin Exam Skin: Present warm; Absent rash *Routine Neurological Exam Neurological: Present alert and oriented X3 Results Data Completed and Pending Labs on day of discharge: Labs from last 24 hours 06/28/23 05:45 WBC 10.1 D RBC 4.26 L Hgb 12.9 L Hct 41.3 L MCV 96.8 H MCH 30.2 MCHC 31.2 L RDW 14.1 Plt Count 181 D MPV 9.2 Neut % (Auto) 75.9 Lymph % (Auto) 14.6 [place] % (Auto) 9.2 Eos % (Auto) 0.0 L Baso % (Auto) 0.2 Neut # (Auto) 7.7 Lymph # (Auto) 1.5 [place] # (Auto) 0.9 Eos # (Auto) 0.0 Baso # (Auto) 0.0 Sodium 143 Potassium 3.4 L D Chloride 108 H Carbon Dioxide 35 H Anion Gap 3.4 L BUN 32 H D Creatinine 0.90 Estimated Creat Clear 75 Estimated GFR 83 Est GFR ( Amer) 100 Glucose 165 H Calcium 8.8 DS: Diagnosis Discharge Diagnosis (1) Acute respiratory failure with hypoxia and hypercarbia: Status: Acute Code(s): J96.01 - Acute respiratory failure with hypoxia; J96.02 - Acute respiratory failure with hypercapnia (2) Acute exacerbation of chronic obstructive airways disease: Status: Acute Code(s): J44.1 - Chronic obstructive pulmonary disease with (acute) exacerbation (3) Pneumonia: Status: Resolved Code(s): J18.9 - Pneumonia, unspecified organism Qualifiers: Laterality: left Lung location: lower lobe of lung Pneumonia type: due to unspecified organism Qualified Code(s): J18.9 - Pneumonia, unspecified organism Meds Home Medications and Allergies Home Medications Medication Instructions Recorded Confirmed Type albuterol sulfate 90 mcg/actuation 2 inh inhalation QIDP PRN 02/08/23 06/26/23 Rx aerosol inhaler shortness of breath or wheezing #8.5 grams betamethasone, augmented 0.05 % 1 applic topical BID #50 grams 02/08/23 06/26/23 Rx topical gel clopidogrel 75 mg tablet 75 mg PO DAILY Platelet Inhibitor 02/08/23 06/26/23 Rx #60 tabs fluticasone fur. 100 mcg-umeclid 1 inh inhalation DAILY Breathing 02/08/23 06/26/23 Rx 62.5 mcg-vilant 25 mcg problems #60 ea inhalat.powder (Trelegy Ellipta) ropinirole 2 mg tablet 2 mg PO HS Restless Leg(S) #60 tabs 02/08/23 06/26/23 Rx clonazepam 1 mg tablet 0.5 mg (1/2 x 1 mg) PO BID Anxiety 06/07/23 06/26/23 Rx 30 days #30 tabs atorvastatin 80 mg tablet 80 mg PO DAILY 06/26/23 06/26/23 History gabapentin 800 mg tablet 800 mg PO QIDP PRN NERVE PAIN 06/26/23 06/26/23 History ondansetron HCl 8 mg tablet 8 mg PO TIDP PRN Nausea And 06/26/23 06/26/23 History Vomiting oxycodone 10 mg tablet 10 mg PO Q6HP PRN Severe Pain 06/26/23 06/26/23 History (Scale Score 7-10) promethazine 25 mg tablet 25 mg PO TIDP PRN Nausea And 06/26/23 06/26/23 History Vomiting atorvastatin 40 mg tablet 80 mg (2 x 40 mg) PO DAILY 30 days 06/28/23 Rx #60 tabs levofloxacin 750 mg tablet 750 mg PO Q24H 5 days #5 tabs 06/28/23 Rx pantoprazole 40 mg tablet,delayed 40 mg PO DAILY 30 days #30 tabs 06/28/23 Rx release prednisone 50 mg tablet 50 mg PO DAILY 5 days #5 tabs 06/28/23 Rx New Prescriptions to Start Prescriptions: atorvastatin Edil,Rejian levofloxacin Edil,Keli pantoprazole Edil,Keli prednisone Edil,Keli Allergies Allergy/AdvReac Type Severity Reaction Status Date / Time aspirin AdvReac Intermediate Gastrointestinal Verified 06/07/23 10:36 Upset amoxicillin [From Augmentin] AdvReac Verified 06/07/23 10:36 clavulanic acid AdvReac Verified 06/07/23 10:36 [From Augmentin] Discharge Plan Disposition Patient Disposition: Home Health Service Condition: Good Discharge Order Discharge Orders: Discharge Order (Routine); Ordered 06/28/23 Ordered By: Keli Solo Follow up Plan Follow up with: Yeimi Solomon PA [Primary Care Provider] - 07/05/23 11:15 am Chetna Ramirez MD [Staff Physician] - 2 weeks (pcp to send referral for appointment) Prescriptions/Medication Reconciliation: New atorvastatin 40 mg Tablet 80 mg PO DAILY 30 Days Qty: 60 0RF pantoprazole 40 mg Tablet,Delayed Release (Dr/Ec) 40 mg PO DAILY 30 Days Qty: 30 0RF prednisone 50 mg tablet 50 mg PO DAILY 5 Days Qty: 5 0RF levofloxacin 750 mg tablet 750 mg PO Q24H 5 Days Qty: 5 0RF Continued albuterol sulfate 90 mcg/actuation HFA aerosol inhaler 2 inh IH QIDP PRN (Reason: shortness of breath or wheezing) Qty: 8.5 4RF clopidogrel 75 mg tablet 75 mg PO DAILY Qty: 60 2RF Trelegy Ellipta 100-62.5-25 mcg blister with device 1 inh IH DAILY Qty: 60 3RF ropinirole 2 mg tablet 2 mg PO HS Qty: 60 2RF betamethasone, augmented 0.05 % gel 1 applic topical BID Qty: 50 2RF Rx Instructions: apply to areas of rash on face twice a day. clonazepam 1 mg tablet 0.5 mg PO BID 30 Days Qty: 30 0RF atorvastatin 80 mg tablet 80 mg PO DAILY Patient Comments: TAKE ONE TABLET BY MOUTH ONCE A DAY ondansetron HCl 8 mg tablet 8 mg PO TIDP PRN (Reason: Nausea And Vomiting) gabapentin 800 mg tablet 800 mg PO QIDP PRN (Reason: NERVE PAIN) promethazine 25 mg tablet 25 mg PO TIDP PRN (Reason: Nausea And Vomiting) oxycodone 10 mg tablet 10 mg PO Q6HP PRN (Reason: Severe Pain (Scale Score 7-10)) Problem Reconciliation Problems Reviewed?: Yes Patient Discharge Instructions ACTIVITY: Ambulate as tolerated DIET: continue same diet Patient Instructions: DI for Chronic Obstructive Pulmonary Disease Providers Primary Care Provider: Yeimi Solomon Admit Provider: Keli Solo Attending Provider: Keli Solo
--- NOTE | 2023-06-29 13:21 | CARE MANAGER ---
Contacted patient/family related to hospital discharge. They state patient is doing well and he is got all his medications. He is aware of follow up appointments and denies questions or concerns. ERIC Silva
== END 2023-06-28 13:25 | disposition home or self-care (01) | DRG 193 ==
LOC: ER 20:45 → 2ND 21:42
PROVIDERS: Internal Medicine Pulmonary Disease; Nurse Practitioner Family; Admitting Provider Internal Medicine; Emergency Provider Emergency Medicine; PCP Physician Assistant; Visit Provider Internal Medicine
DX: J18.9 Pneumonia, unspecified organism (principal); G93.41 Metabolic encephalopathy; J96.21 Acute and chronic respiratory failure with hypoxia; J96.02 Acute respiratory failure with hypercapnia; J96.22 Acute and chronic respiratory failure with hypercapnia; J44.1 Chronic obstructive pulmonary disease with (acute) exacerbation; C34.90 Malignant neoplasm of unspecified part of unspecified bronchus or lung; J44.0 Chronic obstructive pulmonary disease with (acute) lower respiratory infection; Z85.118 Personal history of other malignant neoplasm of bronchus and lung; I10 Essential (primary) hypertension; E78.5 Hyperlipidemia, unspecified; Z91.199 Patient's noncompliance with other medical treatment and regimen due to unspecified reason; G25.81 Restless legs syndrome; Z86.73 Personal history of transient ischemic attack (TIA), and cerebral infarction without residual deficits; Z71.6 Tobacco abuse counseling; F17.200 Nicotine dependence, unspecified, uncomplicated; F41.9 Anxiety disorder, unspecified; G62.9 Polyneuropathy, unspecified
CPT/HCPCS: 36415; 70450; 71045; 80048; 80053; 81001; 82803; 83605; 83735; 83880; 84436; 84443; 84484; 85007; 85025; 85610; 87040; 93005; 94640; 94660; 94761; 97162; 97166; 99291; J0456; J0696; J1956